=== PATIENT | male | born 1950 | race Caucasian/White ===

== ENCOUNTER → 2016-10-24 | Outpatient (CLI) | payer OTHER ==
[~2016-10-24] MED LIST: ALLO300T2 PO; APIX5TAB PO; ATOR10TA15 PO; ATOR40TA16 PO; CARD120T4 PO; CARV25TA PO; CO Q100C9 PO; ENAL20TA PO; FINA5TAB2 PO; FISH1000 PO; FISHCAP4 PO; HYDR-4107 PO; HYDR500C PO; LACTCAP8 PO; MAGN1TAB14 PO; METF500T PO; METR-1 PO; NITR1SUB3 SL; REST15CA PO; SODI650T PO; TRAM50TA PO; UROCTAB2 PO; VENTAER INH; VITA1000 PO; WELC625T2 PO; XARE20TA PO
[2016-10-24 10:44] LABS: HEMATOCRIT 30.4 % (39.0-51.0); MEAN CELL VOLUME 86.7 FL (80.0-100.0); MEAN CORPUSCULAR HEMOGLOBIN 27.9 PG (27.0-34.0); MEAN CORPUSCULAR HGB CONC 32.2 % (32.0-36.0); PLATELET COUNT 146 TH/MM3 (150-450); RED BLOOD COUNT 3.51 MIL/MM3 (4.50-5.90); RED CELL DISTRIBUTION WIDTH 20.4 % (11.6-17.2); WHITE BLOOD COUNT 46.4 TH/MM3 (4.0-11.0)
[2016-10-24 10:48] LABS: REVIEW FLAG FINAL
[2016-10-24 12:51] LABS: BLOOD, URINE TRACE (NEG); GLUCOSE,URINE NEG (NEG); KETONE, URINE NEG (NEG); MUCUS URINE FEW /lpf (OCC); NITRITE,URINE NEG (NEG); URINE COLOR YELLOW (YELLW/STRAW)
[2016-10-24 13:03] LABS: ALKALINE PHOSPHATASE 139 U/L (45-117); ALT (GPT) 42 U/L (12-78); ANION GAP 9 MEQ/L (5-15); AST (GOT) 26 U/L (15-37); BICARBONATE 26.5 MEQ/L (21.0-32.0); BLOOD UREA NITROGEN 22 MG/DL (7-18); CHLORIDE 105 MEQ/L (98-107); GLOMERULAR FILTRATION RATE 42 ML/MIN (>89); HDL CHOLESTEROL 25.4 MG/DL (40.0-60.0); LDL CHOLESTEROL 17 MG/DL (0-99); LDL CHOLESTEROL DIRECT 40 MG/DL (0-99); POTASSIUM 4.8 MEQ/L (3.5-5.1); SODIUM (NA) 140 MEQ/L (136-145); TOTAL BILIRUBIN ADULT 0.6 MG/DL (0.2-1.0)
[2016-10-24 13:17] LABS: HEMOGLOBIN A1a 1.4 %; HEMOGLOBIN Ao 81.4 %; HEMOGLOBIN LA1C 2.9 %
== END ==
LOC: OLAB 10:25
PROVIDERS: ATTEND Family Medicine
DX: E89.89 Other postprocedural endocrine and metabolic complications and disorders (principal); E78.4 Other hyperlipidemia; I10 Essential (primary) hypertension; E13.9 Other specified diabetes mellitus without complications; E55.9 Vitamin D deficiency, unspecified; N17.9 Acute kidney failure, unspecified; E78.1 Pure hyperglyceridemia; I48.91 Unspecified atrial fibrillation; E78.00 Pure hypercholesterolemia, unspecified; Z79.899 Other long term (current) drug therapy
CPT/HCPCS: 36415; 80053; 80061; 81001; 82306; 83036; 83721; 84100; 85027

== ENCOUNTER → 2016-11-30 | Outpatient (CLI) | payer OTHER ==
[2016-11-30 12:29] LABS: BLOOD, URINE SMALL (NEG); COMMENT (UR) CULT NOT INDICATED; CULTURE IF INDICATED CULT NOT INDICATED; GLUCOSE,URINE NEG (NEG); HYALINE CAST, URINE 1 /lpf (RARE); KETONE, URINE NEG (NEG); MUCUS URINE FEW /lpf (OCC); NITRITE,URINE NEG (NEG); PH, URINE 7.5 (5.0-8.5); URINE COLOR YELLOW (YELLW/STRAW)
[2016-11-30 12:45] LABS: BICARBONATE 24.4 MEQ/L (21.0-32.0); POTASSIUM 4.6 MEQ/L (3.5-5.1)
== END ==
LOC: CLAB 11:49
PROVIDERS: ATTEND Family Medicine
DX: E55.9 Vitamin D deficiency, unspecified (principal); N17.9 Acute kidney failure, unspecified; I10 Essential (primary) hypertension; E11.29 Type 2 diabetes mellitus with other diabetic kidney complication; Z12.5 Encounter for screening for malignant neoplasm of prostate
CPT/HCPCS: 36415; 80069; 81001; 82306; 82570; 84153; 84156

== ENCOUNTER 2017-01-09 06:57 | Day surgery (SDC) | payer OTHER ==
[~2017-01-09] VITALS: Ht 177.8 cm; Wt 117.3 kg
[~2017-01-09 06:57] MED LIST changes: -ATOR10TA15 PO; -FISHCAP4 PO; -HYDR500C PO; -METR-1 PO; -SODI650T PO; -XARE20TA PO
[2017-01-09 07:32] VITALS: BP 182/92; PULSE 65; RESP 17; TEMP 98.5; O2SAT 95
[2017-01-09] MEDS ORDERED: SODI650T PO (07:42)
[2017-01-09] MEDS ORDERED: HYDR500C PO (07:42)
[2017-01-09] MEDS ORDERED: UROCTAB2 PO (07:42)
[2017-01-09] MEDS ORDERED: LACTCAP8 PO (07:42)
[2017-01-09] MEDS ORDERED: CHLORHEXIDINE GLUCONATE 2 % 1 PACK (2 CLOTHS) TOPICAL SCH (08:00)
[2017-01-09] MEDS ORDERED: VANCOMYCIN 1000 MG/NS 250 ML - implanted port/tunneled catheter IV SCH ×2 (08:00)
[2017-01-09] MEDS ORDERED: POVIDONE IODINE 5% (ANTISEPSIS KIT) 4 APPLICATIONS EACH NARE SCH (08:00)
[2017-01-09] MEDS ORDERED: ceFAZolin 2 GM PREMIX 50 ML - implanted port/tunneled catheter insertion IV SCH (08:00)
[2017-01-09] MEDS ORDERED: MIDAZOLAM HCL 5 MG/5 ML VIAL ONE (08:36)
[2017-01-09] MEDS ORDERED: fentaNYL CITRATE 250 MCG/5 ML AMP ONE (08:36)
[2017-01-09] MEDS ORDERED: LIDOCAINE 1%/EPINEPHrine 1:100,000 SOLN 30 ML VIAL ONE (08:42)
[2017-01-09 10:17] VITALS: BP 130/71; PULSE 66; RESP 17; TEMP 98.3; O2SAT 93
--- NOTE | 2017-01-09 10:19 | PD.RAD ---
Post Procedure Progress Note Pre Procedure Diagnosis: (1) Leukemia Post Procedure Diagnosis: (1) Leukemia Procedure Date: Jan 09, 2017 Supervising Radiologist: Francisco Javier Marte JR Proceduralist/Assist: Joselin Conn, RT(R)(), Mine Beltre RT(R) Anesthesia: Conscious Sedation Plan of Activity Patient to Unit: ROPU Patient Condition: Good See PACS Report for procedural detail/treatment Central Venous Access Device Procedure 1 Left Internal Jugular Infusaport Placement single lumen [place]: 8 Findings: Port in good position. Functions well. OK to use Plan F/U with IR or a physician in 10-14 days for a site check Jr. Estuardo,Francisco Javier Moncada MD Jan 09, 2017 10:19
[2017-01-09] MEDS ORDERED: SODIUM CHLORIDE 0.9% FLUSH 10 ML FLUSH IVF PRN (10:30)
[2017-01-09 10:32] VITALS: BP 142/69; PULSE 58; RESP 18; O2SAT 93
[2017-01-09 11:02] VITALS: BP 137/72; PULSE 62; RESP 17; O2SAT 98
[2017-01-09 11:32] VITALS: BP 129/78; PULSE 72; RESP 18; O2SAT 97
--- NOTE | 2017-01-09 11:59 | RADRPT ---
EXAM DATE/TIME: 01/09/2017 08:49 [place] COMPARISON: No previous studies available for comparison. INDICATIONS : Patient with history of chronic myelomonocytic leukemia in need of [id number] placement. Patient re quested a left-sided port. MEDICAL HISTORY : Anemia, A-Fib, Chronic renal failure, CAD, HTN, Kidney stones, CPAP, Splenomegaly, GERD SURGICAL HISTORY : Ablation 2008, Bilateral ureteral stent placement, Bone marrow biopsy and aspiration, Coronary stent, Multiple cystoscopies, Upper endoscopy ENCOUNTER: Initial ACUITY: 7-11 months PAIN SCORE: 0/10 FLUORO TIME: 2.7 minutes IMAGE SERIES: 1 SEDATION TIME: 30 minutes ACCESS: Left internal jugular vein SEDATION: 1.) 5 mg midazolam (Versed) IV 2.) 250 mcg fentanyl (Sublimaze) IV Prophylactic antibiotics were administered with appropriate pre-procedure timing. Vancomycin within 2 hours of procedure, Ancef (or alternative) within 1 hour of procedure. DEVICE: 1. 8 [place] single lumen Bard Power Port PROCEDURE : 1. Continuous pulse oximetry and EKG monitoring. 2. Intravenous conscious sedation. 3. Ultrasound guidance for venous access. 4. Fluoroscopic guided implantable central venous port placement. The patient was placed supine. The neck was prepped in sterile fashion. Full sterile technique was u sed, including cap, mask, sterile gloves and gown, and a large sterile sheet. Hand hygiene and 2% ch lorhexidine Betadine was utilized per protocol for cutaneous antisepsis with appropriate dry time for site. The skin and subcutaneous tissues were infiltrated with local anesthetic solution. Under direct ultrasound guidance, central venous access was accomplished in the targeted vessel. The ultrasound images depicting access guidance were stored and saved to PACS for permanent record. A s ubcutaneous pocket was created using blunt dissection. The port was introduced to the pocket. The c atheter tubing was fed through a subcutaneous tunnel to the venotomy site. The catheter tubing was c ut to a suitable length and then was introduced through a valved Peel-Away sheath and positioned with catheter tubing tip at the cavo-atrial junction level. The pocket incision was closed with subcutic ular Vicryl suture. Steri-Strips were applied. The port was flushed and locked with heparin solutio n per protocol. Sterile dressing was applied to the site. The patient tolerated the procedure well. Conscious sedation was performed with the prescribed dosages and duration as above in the presence of an independent trained radiology nurse to assist in the monitoring of the patient. EKG and oximetry remained stable throughout the procedure. The patient tolerated the procedure well and there were no complications. The patient was sent to post anesthesia recovery in stable condition. CONCLUSION: Uncomplicated ultrasound and fluoroscopic guided implanted central venous port catheter placement as described in detail above. An 8 [place] Power port was placed. Francisco Javier Marte Jr., MD on January 09, 2017 at 11:56 Board Certified Radiologist. This report was verified electronically.
[2017-03-09] MEDS ORDERED: ATOR40TA16 PO (15:22)
[2017-03-09] MEDS ORDERED: FISHCAP4 PO (15:23)
== END 2017-01-09 11:40 | disposition home or self-care (01) ==
LOC: HROP 06:57 → HRIP 07:03 → HROP 11:40
PROVIDERS: ATTEND Internal Medicine Hematology & Oncology
DX: Z45.2 Encounter for adjustment and management of vascular access device (principal); C93.10 Chronic myelomonocytic leukemia not having achieved remission; I12.9 Hypertensive chronic kidney disease with stage 1 through stage 4 chronic kidney disease, or unspecified chronic kidney disease; N18.9 Chronic kidney disease, unspecified; I25.10 Atherosclerotic heart disease of native coronary artery without angina pectoris; I48.91 Unspecified atrial fibrillation; K21.9 Gastro-esophageal reflux disease without esophagitis; Z87.442 Personal history of urinary calculi
CPT/HCPCS: 36561; 76937; 77001; 99152; 99153; C1769; C1788; C1887; C1894; J0690; J1642; J2250; J3010; J3370; J7050

== ENCOUNTER 2017-01-26 14:18 | Observation (INO) | payer OTHER ==
[~2017-01-26] VITALS: Ht 177.8 cm; Wt 122.0 kg
[~2017-01-26 14:18] MED LIST changes: -ENAL20TA PO; -FISH1000 PO; -METF500T PO; +SODI650T PO
[2017-01-26 14:47] VITALS: BP 168/74; PULSE 65; RESP 18; TEMP 97.9; O2SAT 100
--- NOTE | 2017-01-26 15:07 | PD ---
HPI Chief Complaint: Allergic/Adverse Reaction Time Seen by Provider: 14:40 Travel History International Travel<30 days: No Contact w/Intl Traveler<30days: No Traveled to known affect area: No History of Present Illness HPI Patient comes in from outpatient facility in [facility] where he is receiving platelet transfusion secondary to thrombocytopenia. Patient reports after receiving less than 200 cc he began having generalized pruritus and sensation of his throat closing. Patient was given epi, Benadryl, and Solu-Medrol, which improved his symptoms. Patient denies any symptoms currently. Denies any chest pain, shortness of breath, sensation throat closing, or pruritus. PFSH Past Medical History Cancer: Yes (skin ) Cardiovascular Problems: Yes High Cholesterol: Yes Chest Pain: Yes (2005) Diabetes: Yes Patient Takes Glucophage: No Diminished Hearing: No Endocrine: No GERD: Yes Genitourinary: No Hepatitis: Yes Hiatal Hernia: No Hypertension: Yes Immune Disorder: No Kidney Stones: Yes ( calicum stones) Musculoskeletal: Yes Neurologic: No Psychiatric: No Reproductive: No Respiratory: No Sleep Apnea: Yes Thyroid Disease: No Past Surgical History Abdominal Surgery: No AICD: No Cardiac Surgery: Yes (ablation) Ear Surgery: No Eye Surgery: No Genitourinary Surgery: Yes (stent) Gynecologic Surgery: No Joint Replacement: Yes (left hip-1998,right hip-09/2008) Neurologic Surgery: Yes (CERVICAL DISK 2002) Oral Surgery: No Pacemaker: No Thoracic Surgery: No Other Surgery: Yes (arthoscopic both knees 2006) Social History Alcohol Use: Yes (rarely) Tobacco Use: No Substance Use: No Allergies-Medications (Allergen,Severity, Reaction): Coded Allergies: CRESTOR (Verified Allergy, Severe, 01/26/17) Reported Meds & Prescriptions Reported Meds & Active Scripts Active Finasteride 5 Mg Tab 5 Mg PO DAILY Do not crush. Reported Probiotic (Lactobacillus Acidophilus) 1 Cap Cap 1 Cap PO TIDAC Sodium Bicarbonate 650 Mg Tab 650 Mg PO BIDPC 1/2 tab twice daily Urocit-K 10 (Potassium Citrate (Alkalinizer)) 1,080 Mg Tab 10 Meq PO TID Allopurinol 300 Mg Tab 300 Mg PO DAILY Eliquis (Apixaban) 5 Mg Tab 2.5 Mg PO BID Atorvastatin (Atorvastatin Calcium) 40 Mg Tab 60 Mg PO HS Ventolin Hfa 18 GM Inh (Albuterol Sulfate) 90 Mcg/Act Aer 1 Puff INH Q4H PRN Nitroglycerin SL (Nitroglycerin) 0.4 Mg Subl 0.4 Mg SL DIRECTED PRN ONE TABLET UNDER THE TONGUE NEEDED FOR CHEST PAIN, MAY REPEAT EVERY FIVE MINUTES FOR A TOTAL OF 3 DOSES OR CALL 911 IF NO RELIEF Welchol (Colesevelam HCl) 625 Mg Tab 625 Mg PO BID Tramadol (Tramadol HCl) 50 Mg Tab 50 Mg PO Q4H PRN Hydrocodone-Acetaminophen 5-300 Mg Tab 1 Tab PO Q4H PRN Vitamin D-1000 (Cholecalciferol) 1,000 Unit Tab 2,000 Units PO BID Restoril (Temazepam) 15 Mg Cap 15 Mg PO HS PRN Co Q 10 (Coenzyme Q10 (Ubidecarenone)) 100 Mg Cap 1 Cap PO BID Magnesium 400 Mg Tab 250 Mg PO DAILY Cardizem (Diltiazem HCl) 120 Mg Tab 240 Mg PO HS Carvedilol 25 Mg Tab 25 Mg PO BID Review of Systems Except as stated in HPI: all other systems reviewed are Neg Physical Exam Narrative GENERAL: Well-developed, overly nourished, in no acute distress, and non-ill appearing. SKIN: Focused skin assessment warm and dry. HEAD: Atraumatic. Normocephalic. EYES: Pupils equal and round. EOMI. No scleral icterus. No injection or drainage. ENT: No nasal bleeding or discharge. Mucous membranes pink and moist. NECK: Trachea midline. Supple. No nuclear rigidity. CARDIOVASCULAR: Regular rate and rhythm. No murmur appreciated. RESPIRATORY: No accessory muscle use. No respiratory distress. Clear to auscultation. Breath sounds equal bilaterally. No stridor. Speaking. Speaking in full sentences without difficulty. MUSCULOSKELETAL: No obvious deformities. No clubbing. No cyanosis. No edema. Full range of motion. NEUROLOGICAL: Awake and alert. No obvious cranial nerve deficits. Motor grossly within normal limits. Normal speech. PSYCHIATRIC: Appropriate mood and affect; insight and judgment normal. Data Data Last Documented VS Vital Signs Date Time Temp Pulse Resp B/P Pulse Ox O2 Delivery O2 Flow Rate FiO2 01/26/17 14:54 67 18 98 Nasal Cannula 2 01/26/17 14:47 97.9 168/74 Orders Platelet Pheresis (01/26/17 17:27) Blood Product Administration .UPON TRANSFUSION (01/26/17 17:27) Sodium Chlor 0.9% 250 Ml Inj (Ns 250 Ml (01/26/17 17:30) Consult Hematology (01/26/17 ) Admit Order (Ed Use Only) (01/26/17 18:03) MDM Medical Decision Making Medical Screen Exam Complete: Yes Emergency Medical Condition: Yes Differential Diagnosis Allergic reaction, anaphylaxis, thrombocytopenia, leukemia, other Narrative Course Patient was seen and examined. Patient was monitored in the ER with no adverse reactions. Secondary patient now being transfused platelets patient will be placed in observation. Discussed all findings and plan of care with patient and his . All questions were answered. Patient was agreeable to admission. Discussed patient with Dr. Noland, who is in agreement with plan of care and disposition. Physician Communication Physician Communication [id number] Mesa, patient's oncologist, who recommends keeping it as a patient here in the emergency department for a few hours since the patient remained stable feels the patient is safe to discharge for outpatient follow-up. 1720 Dr. Mesa stopped by the emergency department to see the patient and is now wanting patient to go ahead and get platelets transfused. [address] Urban, who is agreeable to admit the patient. Diagnosis Primary Impression: Allergic reaction Qualified Code: T78.40XA - Allergic reaction, initial encounter Additional Impression: Thrombocytopenia Admitting Information Admitting Physician Requests: Observation Condition: Stable John Conn Jan 26, 2017 15:07
--- NOTE | 2017-01-26 16:47 | PD ---
Data Data Last Documented VS Vital Signs Date Time Temp Pulse Resp B/P Pulse Ox O2 Delivery O2 Flow Rate FiO2 01/26/17 14:54 67 18 98 Nasal Cannula 2 01/26/17 14:47 97.9 168/74 Orders Diet Diabetic (01/26/17 Dinner) MDM Supervised Visit with TRAVON: Yes Narrative Course The history, exam, and medical decision-making in the associated midlevel provider note were completed with my assistance. I reviewed and agree with the findings presented. I attest that I had a [id number] encounter with the patient on the same day, and personally performed and documented my assessment and findings in the medical record. *My assessment and Findings: This is a 66-year-old male who presents to the emergency department having had an allergic reaction during platelet transfusion. He received epinephrine, salumedrol and Benadryl. He feels much better here in the emergency department. Patient will be observed for 4 hours following epinephrine. He will be discharged on prednisone and Benadryl. Shruthi Noland MD Jan 26, 2017 16:47
[2017-01-26] MEDS ORDERED: SODIUM CHLOR 0.9% 250 ML INJ 250 ML IV ONE (17:30)
[2017-01-26] MEDS ORDERED: ONDANSETRON HCL 4 MG/2 ML VIAL IV PUSH PRN (18:15)
[2017-01-26] MEDS ORDERED: traMADol HCL 50 MG TAB PO PRN (18:15)
[2017-01-26] MEDS ORDERED: ALBUTEROL SULFATE 90 MCG/ACT HFA 8 GM INHALER INH PRN (18:15)
[2017-01-26] MEDS ORDERED: TEMAZEPAM 15 MG CAP PO PRN (18:15)
--- NOTE | 2017-01-26 18:26 | HHI.HP ---
[facility] Grupo Mckeon MD Admission Diagnosis thrombocytopenia, leukemia Diagnoses: (1) Thrombocytopenia Diagnosis: Principal (2) Allergic reaction Diagnosis: Principal Chief Complaint: ' I had an allergic reaction to transfusion'. Travel History International Travel<30 Days: No Contact w/Intl Traveler <30 Da: No Traveled to Known Affected Are: No History of Present Illness patient is a 66 y/o male with history of CML who had platelet transfusion earlier and developed an allergic reaction with rash and some sob. he says that he had mild itching when he had transfusion few days ago but today it was more severe and had some sob.he received epinephrine, benadryl and solumedrol. he says that all the symptoms have already resolved. he denies any itching, wheezing or sob. he was seen by and is supposed to receive platelet transfusion tonight. Review of Systems Constitutional: DENIES: Fever, Weight loss, Chills, Night Sweats Eyes: DENIES: Blurred vision, Diplopia, Vision loss, Double Vision Ears, nose, mouth, throat: DENIES: Tinnitus, Vertigo, Throat pain, Epistaxis Respiratory: COMPLAINS OF: Shortness of breath, DENIES: Apneas, Cough, Snoring , Wheezing, Hemoptysis, Sputum production Cardiovascular: DENIES: Chest pain, Palpitations, Syncope, Dyspnea on Exertion , PND, Lower Extremity Edema, Orthopnea, Claudication Gastrointestinal: DENIES: Abdominal pain, Black stools, Bloody stools, Constipation, Diarrhea, Nausea, Vomiting, Difficulty Swallowing, Anorexia Genitourinary: DENIES: Urinary frequency, Urgency, Hematuria, Dysuria Musculoskeletal: DENIES: Joint pain, Muscle aches, Stiffness, Joint Swelling Integumentary: COMPLAINS OF: Pruritus, Rash Neurologic: DENIES: Abnormal gait, Headache, Localized weakness, Paresthesias, Seizures, Speech Problems, Tremor, Poor Balance Psychiatric: DENIES: Anxiety, Confusion, Mood changes, Depression, Hallucinations, Agitation, Suicidal Ideation, Homicidal Ideation, Delusions Past Family Social History Past Medical History CML a-fib hypertension diabetes mellitus Past Surgical History hip surgery cervical fusion ureteral stent placement Reported Medications Probiotic (Lactobacillus Acidophilus) 1 Cap Cap 1 Cap PO TIDAC Sodium Bicarbonate 650 Mg Tab 650 Mg PO BIDPC 1/2 tab twice daily Urocit-K 10 (Potassium Citrate (Alkalinizer)) 1,080 Mg Tab 10 Meq PO TID Allopurinol 300 Mg Tab 300 Mg PO DAILY Eliquis (Apixaban) 5 Mg Tab 2.5 Mg PO BID Atorvastatin (Atorvastatin Calcium) 40 Mg Tab 60 Mg PO HS Ventolin Hfa 18 GM Inh (Albuterol Sulfate) 90 Mcg/Act Aer 1 Puff INH Q4H PRN Nitroglycerin SL (Nitroglycerin) 0.4 Mg Subl 0.4 Mg SL DIRECTED PRN ONE TABLET UNDER THE TONGUE NEEDED FOR CHEST PAIN, MAY REPEAT EVERY FIVE MINUTES FOR A TOTAL OF 3 DOSES OR CALL 911 IF NO RELIEF Welchol (Colesevelam HCl) 625 Mg Tab 625 Mg PO BID Tramadol (Tramadol HCl) 50 Mg Tab 50 Mg PO Q4H PRN Hydrocodone-Acetaminophen 5-300 Mg Tab 1 Tab PO Q4H PRN Vitamin D-1000 (Cholecalciferol) 1,000 Unit Tab 2,000 Units PO BID Restoril (Temazepam) 15 Mg Cap 15 Mg PO HS PRN Co Q 10 (Coenzyme Q10 (Ubidecarenone)) 100 Mg Cap 1 Cap PO BID Magnesium 400 Mg Tab 250 Mg PO DAILY Cardizem (Diltiazem HCl) 120 Mg Tab 240 Mg PO HS Carvedilol 25 Mg Tab 25 Mg PO BID Allergies: Coded Allergies: CRESTOR (Verified Allergy, Severe, 01/26/17) Active Ordered Medications Current Medications Sodium Chloride (NS 250 ml Inj) 250 ml @ 15 mls/hr ONCE ONCE IV ; Start at 17:30; Stop 01/27/17 at 10:09 Ondansetron HCl (Zofran Inj) 4 mg Q8H PRN IV PUSH NAUSEA; Start 01/26/17 at 18: 15 Albuterol Sulfate (Proair Hfa Inh) 1 puff Q4H PRN INH SHORTNESS OF BREATH; Start 01/26/17 at 18:15 Allopurinol (Zyloprim) 300 mg DAILY PO ; Start 01/27/17 at 09:00 Atorvastatin Calcium (Lipitor) 60 mg HS PO ; Start 01/26/17 at 21:00 Carvedilol (Coreg) 25 mg BID PO ; Start 01/26/17 at 21:00 Colesevelam HCl (Welchol) 625 mg BID@10,22 PO ; Start 01/26/17 at 22:00 Lactobacillus Acidophilus (Lactinex) 1 tab TIDAC PO ; Start 01/27/17 at 08:00 Sodium Bicarbonate (Sodium Bicarbonate) 650 mg BIDPC PO ; Start 01/27/17 at 09: 00 Temazepam (Restoril) 15 mg HS PRN PO INSOMNIA; Start 01/26/17 at 18:15 Tramadol HCl (Ultram) 50 mg Q4H PRN PO PAIN SCALE 1 TO 10; Start 01/26/17 at 18 :15 Non-Formulary Medication 240 mg HS PO ; Start 01/26/17 at 21:00; Status UNV Non-Formulary Medication 250 mg DAILY PO NS; Start 01/27/17 at 09:00; Status UNV Non-Formulary Medication 10 meq TID PO ; Start 01/27/17 at 09:00; Status UNV Social History no smoking or drinking. Physical Exam Vital Signs Vital Signs Date Time Temp Pulse Resp B/P Pulse Ox O2 Delivery O2 Flow Rate FiO2 01/26/17 14:54 67 18 98 Nasal Cannula 2 01/26/17 14:47 97.9 65 18 168/74 100 Physical Exam GENERAL: This is a well-nourished, well-developed patient, in no apparent distress. SKIN: No rashes, ecchymoses or lesions. Cool and dry. HEAD: Atraumatic. Normocephalic. No temporal or scalp tenderness. EYES: Pupils equal round and reactive. Extraocular motions intact. No scleral icterus. No injection or drainage. ENT: Nose without bleeding, purulent drainage or septal hematoma. Throat without erythema, tonsillar hypertrophy or exudate. Uvula midline. Airway patent. NECK: Trachea midline. No JVD or lymphadenopathy. Supple, nontender, no meningeal signs. CARDIOVASCULAR: Regular rate and rhythm without murmurs, gallops, or rubs. RESPIRATORY: Clear to auscultation. Breath sounds equal bilaterally. No wheezes , rales, or rhonchi. GASTROINTESTINAL: Abdomen soft, non-tender, nondistended. No hepato-splenomegaly , or palpable masses. No guarding. MUSCULOSKELETAL: Extremities without clubbing, cyanosis, or edema. No joint tenderness, effusion, or edema noted. No calf tenderness. Negative Homans sign bilaterally. NEUROLOGICAL: Awake and alert. Cranial nerves II through XII intact. Motor and sensory grossly within normal limits. Five out of 5 muscle strength in all muscle groups. Normal speech. Assessment and Plan Assessment and Plan A/P - allergic reaction to platelet transfusion- now has resolved -CML with thrombocytopenia- will receive platelet transfusion per Oncology- will monitor -atrial fibrillation; continue coreg and cardizem- eliquis on hold -hypertension; continue home meds- will monitor -dyslipidemia; resume statin Discussed Condition With ER and the patient. Problem Qualifiers (1) Allergic reaction: Qualified Code: T78.40XA - Allergic reaction, initial encounter Craig Urban MD Jan 26, 2017 18:26
[2017-01-26] MEDS ORDERED: ACETAMINOPHEN 325 MG TAB PO PRN ×2 (18:30→21:45)
[2017-01-26] MEDS ORDERED: NON-FORMULARY DRUG (Hydrocodone-Acetaminophen 1 TAB) PO PRN (18:30)
[2017-01-26] MEDS ORDERED: ACETAMINOPHEN/HYDROcodone 325 MG/5 MG TAB PO PRN (18:45)
[2017-01-26 20:22] VITALS: BP 148/65; PULSE 74; RESP 16; O2SAT 99
[2017-01-26] MEDS ORDERED: DILTIAZEM-CD 240 MG CAP ER PO SCH (21:00)
[2017-01-26] MEDS ORDERED: ATORVASTATIN 20 MG TAB PO SCH (21:00)
[2017-01-26 21:30] VITALS: BP 167/77; PULSE 81; RESP 18; TEMP 97.9; O2SAT 100
[2017-01-26 21:45] VITALS: BP 166/72; PULSE 82; RESP 20; TEMP 98.6; O2SAT 99
[2017-01-26] MEDS ORDERED: diphenhydrAMINE HCL 25 MG CAP PO PRN (21:45)
[2017-01-26] MEDS ORDERED: COLESEVELAM HCL 625 MG TAB PO SCH (22:00)
[2017-01-26 22:01] VITALS: PULSE 82; RESP 20; TEMP 98.6; O2SAT 99
[2017-01-26 22:15] VITALS: BP 137/63; PULSE 82; RESP 20; TEMP 97.3; O2SAT 97
[2017-01-26] MEDS: CARVEDILOL 12.5 MG TAB PO SCH (22:57)
[2017-01-27 05:44] VITALS: BP 146/66; PULSE 80; RESP 18; TEMP 96.1; O2SAT 98
[2017-01-27 06:41] LABS: AUTOMATED NEUTROPHIL # 1.1 TH/MM3 (1.8-7.7); BASOPHIL % 0.4 % (0.0-2.0); EOSINOPHIL % 0.3 % (0.0-4.0); HEMATOCRIT 25.8 % (39.0-51.0); LYMPH % 28.2 % (9.0-44.0); LYMPHOCYTE # 0.5 TH/MM3 (1.0-4.8); MEAN CELL VOLUME 93.5 FL (80.0-100.0); MEAN CORPUSCULAR HEMOGLOBIN 31.5 PG (27.0-34.0); MEAN CORPUSCULAR HGB CONC 33.7 % (32.0-36.0); MONO % 5.5 % (0.0-8.0); NEUT % 65.6 % (16.0-70.0); PLATELET COUNT 25 TH/MM3 (150-450); RED BLOOD COUNT 2.76 MIL/MM3 (4.50-5.90); RED CELL DISTRIBUTION WIDTH 18.8 % (11.6-17.2); WHITE BLOOD COUNT 1.7 TH/MM3 (4.0-11.0)
[2017-01-27 06:48] LABS: HEMO FLAGS AUTO DIFF
[2017-01-27] MEDS ORDERED: LACTOBACILLUS ACIDOPHILUS TAB PO SCH (08:00)
--- NOTE | 2017-01-27 08:27 | HHI.PR ---
Subjective Remarks had platelet transfusion last night. he feels fine today with no new complaints. Objective Vitals Vital Signs Date Time Temp Pulse Resp B/P Pulse Ox O2 Delivery O2 Flow Rate FiO2 01/27/17 05:44 96.1 80 18 146/66 98 01/26/17 23:00 19 01/26/17 22:15 97.3 82 20 137/63 97 01/26/17 21:45 98.6 82 20 166/72 99 01/26/17 21:30 97.9 81 18 167/77 100 01/26/17 20:22 74 16 148/65 99 Room Air 01/26/17 14:54 67 18 98 Nasal Cannula 2 01/26/17 14:47 97.9 65 18 168/74 100 Result Diagram: 01/27/17 0544 Objective Remarks GENERAL: This is a well-nourished, well-developed patient, in no apparent distress. CARDIOVASCULAR: Regular rate and regular rhythm without murmurs, gallops, or rubs. RESPIRATORY: Clear to auscultation. Breath sounds equal bilaterally. No wheezes , rales, or rhonchi. GASTROINTESTINAL: Abdomen soft, non-tender, nondistended. Normal, active bowel sounds MUSCULOSKELETAL: Extremities without clubbing, cyanosis, or edema. NEURO: Alert & Oriented x4 to person, place, time, situation. Moves all ext x4 Procedures none Medications and IVs Current Medications Sodium Chloride (NS 250 ml Inj) 250 ml @ 15 mls/hr ONCE ONCE IV Last administered on 01/26/17 22:00; Start 01/26/17 at 17:30; Stop 01/27/17 at 10:09 Ondansetron HCl (Zofran Inj) 4 mg Q8H PRN IV PUSH NAUSEA; Start 01/26/17 at 18: 15 Albuterol Sulfate (Proair Hfa Inh) 1 puff Q4H PRN INH SHORTNESS OF BREATH; Start 01/26/17 at 18:15 Allopurinol (Zyloprim) 300 mg DAILY PO ; Start 01/27/17 at 09:00 Atorvastatin Calcium (Lipitor) 60 mg HS PO Last administered on 01/26/17 22:58 ; Start 01/26/17 at 21:00 Carvedilol (Coreg) 25 mg BID PO Last administered on 01/26/17 22:57; Start at 21:00 Colesevelam HCl (Welchol) 625 mg BID@,22 PO Last administered on 01/27/17 00 :01; Start 01/26/17 at 22:00 Lactobacillus Acidophilus (Lactinex) 1 tab TIDAC PO ; Start 01/27/17 at 08:00 Sodium Bicarbonate (Sodium Bicarbonate) 650 mg BIDPC PO ; Start 01/27/17 at 09: 00 Temazepam (Restoril) 15 mg HS PRN PO INSOMNIA; Start 01/26/17 at 18:15 Tramadol HCl (Ultram) 50 mg Q4H PRN PO PAIN SCALE 1 TO 10; Start 01/26/17 at 18 :15; Stop 01/26/17 at 18:33; Status DC Diltiazem HCl (Cardizem Cd) 240 mg HS PO Last administered on 01/26/17 22:57; Start 01/26/17 at 21:00 Non-Formulary Medication 250 mg DAILY PO NS; Start 01/27/17 at 09:00; Stop 01/27 at 09:00; Status DC Patient Own Medication PT OWN MED: Potassium Citr... TID PO ; Start 01/27/17 at 09:00; Status Future Hold Finasteride (Proscar) 5 mg DAILY PO ; Start 01/27/17 at 09:00 Non-Formulary Medication 1 tab Q4H PRN PO ; Start 01/26/17 at 18:30; Status UNV Acetaminophen (Tylenol) 650 mg Q4H PRN PO FEVER/ PAIN < 5; Start 01/26/17 at 18 :30 Acetaminophen/ Hydrocodone Bitart (Carbon 5-325 Mg) 1 tab Q4H PRN PO PAIN SCALE 5 TO 10; Start 01/26/17 at 18:45 Acetaminophen (Tylenol) 650 mg UNSCH X1 PRN PO 30 MIN PRIOR TO PLATELETS Last administered on 01/26/17 21:47; Start 01/26/17 at 21:45; Stop 01/27/17 at 04:00 ; Status DC Diphenhydramine HCl (Benadryl) 25 mg UNSCH X1 PRN PO 30 MIN PRIOPR TO PLATELETS Last administered on 01/26/17 21:48; Start 01/26/17 at 21:45; Stop 4 /14/17 at 04:00; Status DC A/P Assessment and Plan A/P - allergic reaction to platelet transfusion prior to his presentation to ER- has resolved -CML with thrombocytopenia- received platelet transfusion per Oncology- platelet count has improved. -atrial fibrillation; continue coreg and cardizem- eliquis on hold -hypertension; continue home meds- will monitor -dyslipidemia; resumed statin Discharge Planning dc home today after seen and cleared by oncology. see med list. f/u; pcp and oncology. d/w the patient. Craig Urban MD Jan 27, 2017 08:27
--- NOTE | 2017-01-27 08:29 | HHI.DS ---
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 he says that he had mild itching when he had transfusion few days ago but today it was more severe and had some sob.he received epinephrine, benadryl and solumedrol. he says that all the symptoms have already resolved. he denies any itching, wheezing or sob. he was seen by and is supposed to receive platelet transfusion tonight. CBC/BMP: 01/27/17 0544 Significant Findings Laboratory Tests Test 01/27/17 05:44 White Blood Count 1.7 TH/MM3 (4.0-11.0) Red Blood Count 2.76 MIL/MM3 (4.50-5.90) Hemoglobin 8.7 GM/DL (13.0-17.0) Hematocrit 25.8 % (39.0-51.0) Red Cell Distribution Width 18.8 % (11.6-17.2) Platelet Count 25 TH/MM3 (150-450) Neutrophils # (Auto) 1.1 TH/MM3 (1.8-7.7) Lymphocytes # (Auto) 0.5 TH/MM3 (1.0-4.8) PE at Discharge GENERAL: This is a well-nourished, well-developed patient, in no apparent distress. CARDIOVASCULAR: Regular rate and regular rhythm without murmurs, gallops, or rubs. RESPIRATORY: Clear to auscultation. Breath sounds equal bilaterally. No wheezes , rales, or rhonchi. GASTROINTESTINAL: Abdomen soft, non-tender, nondistended. Normal, active bowel sounds MUSCULOSKELETAL: Extremities without clubbing, cyanosis, or edema. NEURO: Alert & Oriented x4 to person, place, time, situation. Moves all ext x4 Hospital Course - allergic reaction to platelet transfusion prior to his presentation to ER- has resolved -CML with thrombocytopenia- received platelet transfusion per Oncology- platelet count has improved. -atrial fibrillation; continue coreg and cardizem- eliquis on hold -hypertension; continue home meds- will monitor -dyslipidemia; resumed statin Pt Condition on Discharge: Good Discharge Disposition: Discharge Home Discharge Time: <= 30 minutes Discharge Instructions DIET: Follow Instructions for: Heart Healthy Diet Activities you can perform: Regular-No Restrictions Follow up Referrals: Oncology PCP Follow-up Continued Medications: Albuterol 18 GM Inh (Ventolin Hfa 18 GM Inh) 90 Mcg/Act Aer 1 PUFF INH Q4H PRN SHORTNESS OF BREATH #1 Ref 0 INHALER Allopurinol (Allopurinol) 300 Mg Tab 300 MG PO DAILY Gout #30 Ref 0 TAB Atorvastatin (Atorvastatin) 40 Mg Tab 60 MG PO HS Cholesterol Management #30 Ref 0 TAB Carvedilol (Carvedilol) 25 Mg Tab 25 MG PO BID #60 Ref 0 TAB Cholecalciferol (Vitamin D-1000) 1,000 Unit Tab 2000 UNITS PO BID Nutritional Supplement #1 Ref 0 BOTTLE Coenzyme Q10 (Ubidecarenone) (Co Q 10) 100 Mg Cap 1 CAP PO BID Colesevelam (Welchol) 625 Mg Tab 625 MG PO BID Hyperlipidemia,type 2 diabetes #180 Ref 0 TAB Diltiazem (Cardizem) 120 Mg Tab 240 MG PO HS Angina #120 Ref 0 TAB Finasteride (Finasteride) 5 Mg Tab 5 MG PO DAILY Do not crush. bph #30 Ref 11 TAB Hydrocodone-Acetaminophen (Hydrocodone-Acetaminophen) 5-300 Mg Tab 1 TAB PO Q4H PRN PAIN Ref 0 TAB Lactobacillus Acidophilus (Probiotic) 1 Cap Cap 1 CAP PO TIDAC Nutritional Supplement #90 Ref 0 CAP Magnesium (Magnesium) 400 Mg Tab 250 MG PO DAILY Nutritional Supplement Ref 0 TAB Nitroglycerin SL (Nitroglycerin SL) 0.4 Mg Subl 0.4 MG SL DIRECTED ONE TABLET UNDER THE TONGUE NEEDED FOR CHEST PAIN, MAY REPEAT EVERY FIVE MINUTES FOR A TOTAL OF 3 DOSES OR CALL 911 IF NO RELIEF PRN CHEST PAIN #100 Ref 0 TAB.SL Potassium Citrate (Alkalinizer) (Urocit-K 10) 1,080 Mg Tab 10 MEQ PO TID #90 Ref 0 TAB Sodium Bicarbonate (Sodium Bicarbonate) 650 Mg Tab 650 MG PO BIDPC 1/2 tab twice daily #60 Ref 0 TAB Temazepam (Restoril) 15 Mg Cap 15 MG PO HS PRN INSOMNIA #30 Ref 0 CAP Tramadol (Tramadol) 50 Mg Tab 50 MG PO Q4H PRN PAIN Ref 0 TAB Discontinued Medications: Apixaban (Eliquis) 5 Mg Tab 2.5 MG PO BID Blood Clot Prevention #60 Ref 0 TAB Craig Ubran MD Jan 27, 2017 08:29
--- NOTE | 2017-01-27 08:29 | HHI.DCPOC ---
Discharge Care Plan Diagnosis: (1) Thrombocytopenia (2) Allergic reaction Your Health Problems Are: Bleeding Tendency Goals to Promote Your Health * To prevent worsening of your condition and complications * To maintain your health at the optimal level Directions to Meet Your Goals Take your medications as prescribed Follow your dietary instruction Follow activity as directed Keep your appointments as scheduled Take your immunizations and boosters as scheduled If your symptoms worsen call your PCP, if no PCP go to Urgent Care Center or Emergency Room Smoking is Dangerous to Your Health. Avoid second hand smoke Call the 24-hour hour crisis hotline for domestic abuse at Craig Urban MD Jan 27, 2017 08:29
[2017-01-27] MEDS: CARVEDILOL 12.5 MG TAB PO SCH (08:39)
[2017-01-27 08:43] LABS: BANDS 1 % (0-6); POLYS (SEG NEUTROPHILS) 57 % (16-70); WBC DIFF SAMPLE 100
[2017-01-27 08:44] LABS: PLATELET ESTIMATE SMEAR LOW (NORMAL); PLATELET MORPHOLOGY NORMAL (NORMAL); SCAN/DIFF FINAL DIFF MANUAL
[2017-01-27 08:55] VITALS: BP 127/58; PULSE 70; RESP 18; TEMP 96.4; O2SAT 98
[2017-01-27] MEDS ORDERED: ALLOPURINOL 300 MG TAB PO SCH (09:00)
[2017-01-27] MEDS ORDERED: FINASTERIDE 5 MG TAB PO SCH (09:00)
[2017-01-27] MEDS ORDERED: POTASSIUM CITRATE 10 MEQ PO SCH (09:00)
[2017-01-27] MEDS ORDERED: NON-FORMULARY DRUG (Magnesium 250 MG) PO SCH (09:00)
[2017-01-27] MEDS ORDERED: SODIUM BICARBONATE 650 MG TAB PO SCH (09:00)
--- NOTE | 2017-01-27 09:45 | HHI.PR ---
Addendum To [facility] Progress Not Reason for addendum: Additonal documentation (spoke with ; patient is clear for discharge. f/u as outpatient.) Craig Urban MD Jan 27, 2017 09:45
[2017-03-09] MEDS ORDERED: ATOR40TA16 PO (15:22)
[2017-03-09] MEDS ORDERED: FISHCAP4 PO (15:23)
== END 2017-01-27 11:04 | disposition home or self-care (01) ==
LOC: NEPC 14:18 → NEDA 18:04 → HOCA 21:21
PROVIDERS: ADMIT Internal Medicine; ATTEND Internal Medicine
DX: T80.89XA Other complications following infusion, transfusion and therapeutic injection, initial encounter (principal); D69.6 Thrombocytopenia, unspecified; C92.10 Chronic myeloid leukemia, BCR/ABL-positive, not having achieved remission; E78.00 Pure hypercholesterolemia, unspecified; E11.9 Type 2 diabetes mellitus without complications; K21.9 Gastro-esophageal reflux disease without esophagitis; I10 Essential (primary) hypertension; E78.5 Hyperlipidemia, unspecified; I48.91 Unspecified atrial fibrillation; Z88.8 Allergy status to other drugs, medicaments and biological substances; Z96.643 Presence of artificial hip joint, bilateral
CPT/HCPCS: 36430; 85007; 85027; 86999; 99285; G0378; J7050; P9035

== ENCOUNTER 2017-05-29 00:04 | Emergency (ER) | payer MEDICARE ==
[~2017-05-29 00:04] MED LIST changes: -APIX5TAB PO; +ASPI1TAB69 PO; +CARD240C6 PO; +CIPR250T52 PO; +COEN1CAP PO; +DIFL100T PO; +FISHCAP4 PO; +HYDR500C PO; +OXYC1TAB63 PO; +TEMA7.5C9 PO
[2017-05-29 00:06] VITALS: BP 160/77; PULSE 85; RESP 16; TEMP 100.5; O2SAT 97
--- NOTE | 2017-05-29 00:39 | PD ---
HPI Chief Complaint: Fever Time Seen by Provider: 00:29 Travel History International Travel<30 days: No Contact w/Intl Traveler<30days: No Traveled to known affect area: No History of Present Illness HPI 67-year-old male presents emergency department for evaluation of fever. He is history of CML. Patient last chemotherapy was weeks ago. Began feeling feverish and took his temperature called the on-call oncologist Dr. oh who recommended the patient come to the emergent department to be evaluated and likely admitted. Patient denies any cough congestion nausea vomiting rash earaches sore throat or dysuria. Denies any diarrhea or constipation. Patient just been feeling bad today. PFSH Past Medical History Hx Anticoagulant Therapy: Yes (XARELTO) Atrial Fibrillation: Yes Cancer: Yes (skin, CMML) Cardiovascular Problems: Yes High Cholesterol: Yes Chest Pain: Yes (2005) Coronary Artery Disease: Yes Diabetes: Yes Patient Takes Glucophage: No (OFF SINCE AUG) Diminished Hearing: Yes Endocrine: No GERD: Yes Genitourinary: No Hepatitis: Yes Hiatal Hernia: No Hypertension: Yes Immune Disorder: No Implanted Vascular Access Dvce: Yes (POWER PORT LEFT) Kidney Stones: Yes ( calicum stones) Musculoskeletal: Yes Neurologic: No Psychiatric: No Reproductive: No Respiratory: No Sleep Apnea: Yes Thyroid Disease: No Past Surgical History Abdominal Surgery: No AICD: No Cardiac Surgery: Yes (ablation, CATH 2005) Ear Surgery: No Eye Surgery: No Genitourinary Surgery: Yes (stent) Gynecologic Surgery: No Joint Replacement: Yes (left hip-1998,right hip-09/2008) Neurologic Surgery: Yes (CERVICAL DISK 2002) Oral Surgery: No Pacemaker: No Thoracic Surgery: No Other Surgery: Yes (arthoscopic both knees 2006) Social History Alcohol Use: Yes (rarely) Tobacco Use: No Substance Use: No Allergies-Medications (Allergen,Severity, Reaction): Coded Allergies: No Known Allergies (Unverified , 05/29/17) Reported Meds & Prescriptions Reported Meds & Active Scripts Active Keflex (Cephalexin) 500 Mg Cap 500 Mg PO Q6H 5 Days Diflucan (Fluconazole) 100 Mg Tab 100 Mg PO DAILY Sodium Bicarbonate 650 Mg Tab 650 Mg PO BIDPC Aspirin 81 Mg Tabdr 81 Mg PO DAILY Oxycodone-Acetaminophen 5-325 mg Tab 1 Tab PO Q4H PRN Finasteride 5 Mg Tab 5 Mg PO DAILY Do not crush. Reported Fish Oil + D3 (Fish Oil-Cholecalciferol) 1,200-1,000 Mg-Unit Cap 1 Cap PO DAILY Atorvastatin (Atorvastatin Calcium) 40 Mg Tab 40 Mg PO DAILY Probiotic (Lactobacillus Acidophilus) 1 Cap Cap 1 Cap PO TIDAC Sodium Bicarbonate 650 Mg Tab 650 Mg PO BIDPC 1/2 tab twice daily Urocit-K 10 (Potassium Citrate (Alkalinizer)) 1,080 Mg Tab 10 Meq PO TID Allopurinol 300 Mg Tab 300 Mg PO DAILY Hydrea (Hydroxyurea) 500 Mg Cap 500 Mg PO DAILY Finasteride 5 Mg Tab 5 Mg PO DAILY Do not crush. Restoril (Temazepam) 7.5 Mg Cap 7.5 Mg PO HS PRN Co Q-10 (Coenzyme Q10 (Ubidecarenone)) 100 Mg Cap 100 Mg PO BID Cardizem CD 24 HR (Diltiazem CD 24 HR) 240 Mg Caper 240 Mg PO DAILY Atorvastatin (Atorvastatin Calcium) 40 Mg Tab 40 Mg PO HS Ventolin Hfa 18 GM Inh (Albuterol Sulfate) 90 Mcg/Act Aer 1 Puff INH Q4H PRN Nitroglycerin SL (Nitroglycerin) 0.4 Mg Subl 0.4 Mg SL DIRECTED PRN ONE TABLET UNDER THE TONGUE NEEDED FOR CHEST PAIN, MAY REPEAT EVERY FIVE MINUTES FOR A TOTAL OF 3 DOSES OR CALL 911 IF NO RELIEF Welchol (Colesevelam HCl) 625 Mg Tab 625 Mg PO BID Tramadol (Tramadol HCl) 50 Mg Tab 50 Mg PO Q4H PRN Hydrocodone-Acetaminophen 5-300 Mg Tab 1 Tab PO Q4H PRN Vitamin D-1000 (Cholecalciferol) 1,000 Unit Tab 2,000 Units PO BID Restoril (Temazepam) 15 Mg Cap 15 Mg PO HS PRN Magnesium 400 Mg Tab 250 Mg PO DAILY Carvedilol 25 Mg Tab 25 Mg PO BID Review of Systems Except as stated in HPI: all other systems reviewed are Neg Physical Exam Narrative GENERAL: Well-developed well-nourished nontoxic-appearing male in no distress. SKIN: Focused skin assessment warm/dry. No rash no wound. HEAD: Atraumatic. Normocephalic. EYES: Pupils equal and round. No scleral icterus. No injection or drainage. ENT: No nasal bleeding or discharge. Mucous membranes pink and moist. NECK: Trachea midline. No JVD. CARDIOVASCULAR: Regular rate and rhythm. No murmur appreciated. RESPIRATORY: No accessory muscle use. Clear to auscultation. Breath sounds equal bilaterally. GASTROINTESTINAL: Abdomen soft, non-tender, nondistended. Hepatic and splenic margins not palpable. MUSCULOSKELETAL: No obvious deformities. No clubbing. No cyanosis. No edema. NEUROLOGICAL: Awake and alert. No obvious cranial nerve deficits. Motor grossly within normal limits. Normal speech. PSYCHIATRIC: Appropriate mood and affect; insight and judgment normal. Data Data Last Documented VS Vital Signs Date Time Temp Pulse Resp B/P Pulse Ox O2 Delivery O2 Flow Rate FiO2 05/29/17 03:10 72 16 134/60 97 05/29/17 00:06 100.5 Room Air Orders Electrocardiogram (05/29/17 00:37) Complete Blood Count With Diff (05/29/17 00:37) Comprehensive Metabolic Panel (05/29/17 00:37) Prothrombin Time / Inr (Pt) (05/29/17 00:37) Act Partial Throm Time (Ptt) (05/29/17 00:37) Lactic Acid Sepsis Protocol (05/29/17 00:37) Magnesium (Mg) (05/29/17 00:37) Phosphorus (Po4) (05/29/17 00:37) Lipase (05/29/17 00:37) Ckmb (Isoenzyme) Profile (05/29/17 00:37) Troponin I (05/29/17 00:37) Urinalysis - C+S If Indicated (05/29/17 00:37) Influenzae A/B Antigen (05/29/17 00:37) Blood Culture (05/29/17 00:37) Chest, Single Ap (05/29/17 00:37) Ecg Monitoring (05/29/17 00:37) Iv Access Insert/Monitor (05/29/17 00:37) Oximetry (05/29/17 00:37) Oxygen Administration (05/29/17 00:37) Vancomycin Inj (Vancomycin Inj) (05/29/17 00:45) Piperacil-Tazo 4.5 Gm Premix (Zosyn 4.5 (05/29/17 00:45) Labs Laboratory Tests Test 05/29/17 05/29/17 05/29/17 00:40 01:25 01:30 Prothrombin Time 13.8 SEC Prothromb Time International 1.2 RATIO Ratio Activated Partial 33.4 SEC Thromboplast Time Sodium Level 137 MEQ/L Potassium Level 4.0 MEQ/L Chloride Level 100 MEQ/L Carbon Dioxide Level 26.5 MEQ/L Anion Gap 11 MEQ/L Blood Urea Nitrogen 25 MG/DL Creatinine 1.44 MG/DL Estimat Glomerular Filtration 49 ML/MIN Rate Random Glucose 153 MG/DL Lactic Acid Level 0.8 mmol/L Calcium Level 8.5 MG/DL Phosphorus Level 3.7 MG/DL Magnesium Level 2.0 MG/DL Total Bilirubin 1.5 MG/DL Aspartate Amino Transf 24 U/L (AST/SGOT) Alanine Aminotransferase 26 U/L (ALT/SGPT) Alkaline Phosphatase 125 U/L Total Creatine Kinase 75 U/L Troponin I LESS THAN 0.02 NG/ML Total Protein 7.8 GM/DL Albumin 3.7 GM/DL Lipase 256 U/L Urine Color YELLOW Urine Turbidity CLEAR Urine pH 6.5 Urine Specific [place] 1.021 Urine Protein 30 mg/dL Urine Glucose (UA) NEG mg/dL Urine Ketones NEG mg/dL Urine Occult Blood NEG Urine Nitrite NEG Urine Bilirubin NEG Urine Urobilinogen LESS THAN 2.0 MG/DL Urine Leukocyte Esterase NEG Urine RBC LESS THAN 1 /hpf Urine WBC 1 /hpf Urine Mucus FEW /lpf Microscopic Urinalysis Comment CATH-CULT NOT IND White Blood Count 4.4 TH/MM3 Red Blood Count 4.13 MIL/MM3 Hemoglobin 11.3 GM/DL Hematocrit 35.1 % Mean Corpuscular Volume 84.9 FL Mean Corpuscular Hemoglobin 27.5 PG Mean Corpuscular Hemoglobin 32.4 % Concent Red Cell Distribution Width 27.5 % Platelet Count 130 TH/MM3 Mean Platelet Volume 9.9 FL Neutrophils (%) (Auto) % Lymphocytes (%) (Auto) % Monocytes (%) (Auto) % Eosinophils (%) (Auto) % Basophils (%) (Auto) % Neutrophils # (Auto) TH/MM3 Lymphocytes # (Auto) TH/MM3 Monocytes # (Auto) TH/MM3 Eosinophils # (Auto) TH/MM3 Basophils # (Auto) TH/MM3 CBC Comment AUTO DIFF Differential Total Cells 100 Counted Neutrophils % (Manual) 35 % Band Neutrophils % 1 % Lymphocytes % 52 % Monocytes % 7 % Eosinophils % 1 % Basophils % 4 % Neutrophils # (Manual) 1.6 TH/MM3 Nucleated Red Blood Cells 3 /100 WBC Differential Comment FINAL DIFF MANUAL Platelet Estimate LOW Platelet Morphology Comment NORMAL Ovalocytes 1+ MDM Medical Decision Making Medical Screen Exam Complete: Yes Emergency Medical Condition: Yes Differential Diagnosis Neutropenic fever, medication reaction, UTI, pneumonia. Narrative Course Patient roomed in emergency department, given the history that he provides seems reasonable for neutropenic fever the patient was started on vancomycin and Zosyn while awaiting lab results. Lab results returned the patient is not by definition neutropenic. His absolute neutrophil count is 1.6. This was discussed with Dr. Oh it appears as though there is no obvious source of the fever. We agrees the patient can go home given his well appearance. He will has been prescribed Levaquin has not started taking it from Dr. Sanders. Recommended that he start taking. He also prescription for azithromycin I recommended that he talk to Dr. Sanders about this first thing in the morning. He is stable for discharge. Discussed return to ED criteria. Diagnosis Primary Impression: Fever Additional Instructions: Take the Levaquin as prescribed, call Dr. Sanders this morning for further instructions. Scripts Cephalexin (Keflex)500 Mg Kml060 Mg PO Q6H 5 Days Ref 0 Prov:Jun Lopez MD 05/29/17 Disposition: 01 DISCHARGE HOME Condition: Stable Jun Lopez MD May 29, 2017 00:39
[2017-05-29] MEDS ORDERED: VANCOMYCIN INJ 1,000 MG in SODIUM CHLOR 0.9% 250 ML INJ 250 ML IV ONE (00:45)
[2017-05-29] MEDS ORDERED: PIPERACIL-TAZO 4.5 GM PREMIX 100 ML IV ONE (00:45)
--- NOTE | 2017-05-29 01:09 | RADRPT ---
EXAM DATE/TIME: 05/29/2017 00:44 [facility] COMPARISON: CHEST SINGLE AP, September 06, 2016, 17:24. INDICATIONS : Fever this evening MEDICAL HISTORY : Leukemia. Hypertension Renal failure, chronic. GERD, A-fib SURGICAL HISTORY : Coronary stent ENCOUNTER: Initial ACUITY: 1 day PAIN SCORE: 7/10 LOCATION: Bilateral chest FINDINGS: A single view of the chest demonstrates the lungs to be symmetrically aerated without evidence of mas s, infiltrate or effusion. Horizontal linear scarring or atelectasis left midlung is unchanged from prior. The cardiomediastinal contours are stable with mild tortuosity of the descending thoracic aort a. Both hemidiaphragms are well delineated. Osseous structures are intact. Left central line tip p rojects over the origin of the superior vena cava. No evidence of pneumothorax. CONCLUSION: The lungs are clear. No infiltrates seen. Francisco Javier Johnston MD on May 29, 2017 at 1:06 Board Certified Radiologist. This report was verified electronically.
[2017-05-29 01:31] LABS: ANION GAP 11 MEQ/L (5-15); AST (GOT) 24 U/L (15-37); BICARBONATE 26.5 MEQ/L (21.0-32.0); BLOOD UREA NITROGEN 25 MG/DL (7-18); CHLORIDE 100 MEQ/L (98-107); SODIUM (NA) 137 MEQ/L (136-145)
[2017-05-29 01:32] LABS: APTT (PATIENT) 33.4 SEC (24.3-30.1); INTERNATIONAL NORMALIZED RATIO 1.2 RATIO; PROTHROMBIN TIME - PATIENT 13.8 SEC (9.8-11.6)
[2017-05-29 01:34] LABS: ALKALINE PHOSPHATASE 125 U/L (45-117); ALT (GPT) 26 U/L (12-78); GLOMERULAR FILTRATION RATE 49 ML/MIN (>89); TOTAL BILIRUBIN ADULT 1.5 MG/DL (0.2-1.0)
[2017-05-29 01:35] LABS: CREATINE KINASE 75 U/L (39-308)
[2017-05-29 01:43] LABS: BLOOD, URINE NEG (NEG); GLUCOSE,URINE NEG (NEG); KETONE, URINE NEG (NEG); MUCUS URINE FEW /lpf (OCC); NITRITE,URINE NEG (NEG); PH, URINE 6.5 (5.0-8.5); URINE COLOR YELLOW (YELLW/STRAW)
[2017-05-29 01:44] LABS: COMMENT (UR) CATH-CULT NOT IND; CULTURE IF INDICATED CATH CULTURE NOT IND
[2017-05-29 01:46] LABS: HEMATOCRIT 35.1 % (39.0-51.0); MEAN CELL VOLUME 84.9 FL (80.0-100.0); MEAN CORPUSCULAR HEMOGLOBIN 27.5 PG (27.0-34.0); MEAN CORPUSCULAR HGB CONC 32.4 % (32.0-36.0); PLATELET COUNT 130 TH/MM3 (150-450); RED BLOOD COUNT 4.13 MIL/MM3 (4.50-5.90); RED CELL DISTRIBUTION WIDTH 27.5 % (11.6-17.2); WHITE BLOOD COUNT 4.4 TH/MM3 (4.0-11.0)
[2017-05-29 01:50] LABS: HEMO FLAGS AUTO DIFF
[2017-05-29 02:15] LABS: BANDS 1 % (0-6); BASOPHILS 4 % (0-2); CORRECTED NUCLEATED RBC 3 /100 WBC (0-0); EOSINOPHILS 1 % (0-4); NEUTROPHIL # MANUAL DIFF 1.6 TH/MM3 (1.8-7.7); POLYS (SEG NEUTROPHILS) 35 % (16-70); WBC DIFF SAMPLE 100
[2017-05-29 02:16] LABS: OVALOCYTES 1+ (NORMAL); PLATELET ESTIMATE SMEAR LOW (NORMAL); PLATELET MORPHOLOGY NORMAL (NORMAL); SCAN/DIFF FINAL DIFF MANUAL
[2017-05-29 03:10] VITALS: BP 134/60
[2017-05-29] MEDS ORDERED: CEPH-460 PO (05:00)
== END 2017-05-29 03:15 | disposition home or self-care (01) ==
LOC: NEPC 00:04
DX: R50.9 Fever, unspecified (principal); C92.10 Chronic myeloid leukemia, BCR/ABL-positive, not having achieved remission; E11.9 Type 2 diabetes mellitus without complications; I10 Essential (primary) hypertension; E78.00 Pure hypercholesterolemia, unspecified; H91.90 Unspecified hearing loss, unspecified ear; G47.30 Sleep apnea, unspecified; Z79.01 Long term (current) use of anticoagulants; Z79.899 Other long term (current) drug therapy; Z86.79 Personal history of other diseases of the circulatory system; Z87.19 Personal history of other diseases of the digestive system; Z87.448 Personal history of other diseases of urinary system; Z87.39 Personal history of other diseases of the musculoskeletal system and connective tissue
CPT/HCPCS: 71010; 80053; 81001; 82550; 83605; 83690; 83735; 84100; 84484; 85007; 85027; 85610; 85730; 87040; 87804; 96365; 96367; 99285; J2543; J3370; J7050

== ENCOUNTER → 2017-07-06 | Outpatient (CLI) | payer MEDICARE ==
[~2017-07-06] MED LIST changes: -CARD120T4 PO; +CEPH-460 PO; -CIPR250T52 PO; -CO Q100C9 PO
[2017-07-06 17:52] LABS: HEMOGLOBIN A1a 1.6 %; HEMOGLOBIN A1b 0.8 %; HEMOGLOBIN Ao 79.3 %; HEMOGLOBIN F 2.6 %; HEMOGLOBIN LA1C 2.8 %; HEMOGLOBIN P3 4.9 %
== END ==
LOC: OLAB 09:59
PROVIDERS: ATTEND Family Medicine
DX: E11.9 Type 2 diabetes mellitus without complications (principal)
CPT/HCPCS: 36415; 83036

== ENCOUNTER → 2018-02-23 | Outpatient (CLI) | payer MEDICARE ==
[~2018-02-23] MED LIST changes: -ASPI1TAB69 PO; -CEPH-460 PO; +CYCL10TA PO; -DIFL100T PO; +HYDR-3583 PO; -HYDR-4107 PO; -MAGN1TAB14 PO; +MAGN400T3 PO; +MS C15TA7 PO; -NITR1SUB3 SL; -OXYC1TAB63 PO; -SODI650T PO; -TEMA7.5C9 PO; -WELC625T2 PO
[2018-02-23 13:48] LABS: BILIRUBIN, URINE NEG (NEG); BLOOD, URINE NEG (NEG); GLUCOSE,URINE 70 mg/dL (NEG); HYALINE CAST, URINE 2 /lpf (RARE); KETONE, URINE NEG (NEG); MUCUS URINE FEW /lpf (OCC); NITRITE,URINE NEG (NEG); PH, URINE 5.5 (5.0-8.5); SQUAMOUS EPITHELIAL CELL URINE <1 /hpf (0-5); URINE COLOR YELLOW (YELLW/STRAW); URINE LEUKOCYTE ESTERASE NEG (NEG)
[2018-02-23 13:50] LABS: ALBUMIN 3.6 GM/DL (3.4-5.0); BICARBONATE 23.8 MEQ/L (21.0-32.0); CREATININE 1.77 MG/DL (0.60-1.30); PHOSPHORUS 4.2 MG/DL (2.5-4.9)
== END ==
LOC: OLAB 09:03
PROVIDERS: ATTEND Internal Medicine Nephrology
DX: E55.9 Vitamin D deficiency, unspecified (principal); N18.3 Chronic kidney disease, stage 3 (moderate)
CPT/HCPCS: 36415; 80069; 81001; 82306; 82570; 83970; 84156

== ENCOUNTER → 2018-03-22 | Outpatient (CLI) | payer MEDICARE ==
[2018-03-22 11:30] LABS: AUTOMATED NEUTROPHIL # 3.6 TH/MM3 (1.8-7.7); BASOPHIL % 0.5 % (0.0-2.0); EOSINOPHIL # 0.2 TH/MM3 (0-0.4); EOSINOPHIL % 2.3 % (0.0-4.0); HEMATOCRIT 32.1 % (39.0-51.0); HEMOGLOBIN 10.8 GM/DL (13.0-17.0); LYMPH % 44.4 % (9.0-44.0); LYMPHOCYTE # 3.4 TH/MM3 (1.0-4.8); MEAN CELL VOLUME 88.5 FL (80.0-100.0); MEAN CORPUSCULAR HEMOGLOBIN 29.9 PG (27.0-34.0); MEAN CORPUSCULAR HGB CONC 33.8 % (32.0-36.0); MEAN PLATELET VOLUME 6.6 FL (7.0-11.0); MONO % 8.3 % (0.0-8.0); MONOCYTE # 0.6 TH/MM3 (0-0.9); NEUT % 44.5 % (16.0-70.0); PLATELET COUNT 193 TH/MM3 (150-450); RED BLOOD COUNT 3.63 MIL/MM3 (4.50-5.90); RED CELL DISTRIBUTION WIDTH 12.8 % (11.6-17.2); WHITE BLOOD COUNT 7.8 TH/MM3 (4.0-11.0)
[2018-03-22 14:10] LABS: ALBUMIN 3.6 GM/DL (3.4-5.0); AST (GOT) 23 U/L (15-37); BICARBONATE 23.9 MEQ/L (21.0-32.0); BLOOD UREA NITROGEN 33 MG/DL (7-18); CALCIUM 8.8 MG/DL (8.5-10.1); CHLORIDE 104 MEQ/L (98-107); GLOMERULAR FILTRATION RATE 36 ML/MIN (>89); GLUCOSE,RANDOM 182 MG/DL (74-106); SODIUM (NA) 138 MEQ/L (136-145)
[2018-03-22 14:11] LABS: CHOLESTEROL 130 MG/DL (120-200)
[2018-03-22 14:21] LABS: ALKALINE PHOSPHATASE 145 U/L (45-117); ALT (GPT) 42 U/L (12-78); CHOLESTEROL/ HDL RATIO 3.84 RATIO; HDL CHOLESTEROL 33.8 MG/DL (40.0-60.0); LDL CHOLESTEROL 58 MG/DL (0-99); TOTAL BILIRUBIN ADULT 0.6 MG/DL (0.2-1.0); TOTAL PROTEIN 6.3 GM/DL (6.4-8.2); TRIGLYCERIDES 189 MG/DL (42-150)
[2018-03-22 16:35] LABS: HEMOGLOBIN A1C 7.5 % (4.3-6.0)
== END ==
LOC: OLAB 11:06
PROVIDERS: ATTEND Family Medicine
DX: E11.9 Type 2 diabetes mellitus without complications (principal); I12.9 Hypertensive chronic kidney disease with stage 1 through stage 4 chronic kidney disease, or unspecified chronic kidney disease; E11.22 Type 2 diabetes mellitus with diabetic chronic kidney disease; N18.3 Chronic kidney disease, stage 3 (moderate); D72.829 Elevated white blood cell count, unspecified
CPT/HCPCS: 36415; 80053; 80061; 83036; 84443; 85025

== ENCOUNTER 2018-04-03 19:15 | Observation (INO) | payer MEDICARE ==
[~2018-04-03] VITALS: Ht 172.7 cm; Wt 120.4 kg
[2018-04-03 19:19] VITALS: BP 194/85; PULSE 98; RESP 20; TEMP 102.5; O2SAT 98
[2018-04-03] MEDS ORDERED: CEFEPIME INJ 2,000 MG in SODIUM CHLORIDE 0.9% INJ 100 ML IV STA (19:58)
[2018-04-03 20:48] LABS: AUTOMATED NEUTROPHIL # 4.3 TH/MM3 (1.8-7.7); BASOPHIL # 0.1 TH/MM3 (0-0.2); EOSINOPHIL # 0.1 TH/MM3 (0-0.4); HEMATOCRIT 33.1 % (39.0-51.0); HEMOGLOBIN 11.2 GM/DL (13.0-17.0); LYMPH % 34.1 % (9.0-44.0); LYMPHOCYTE # 2.9 TH/MM3 (1.0-4.8); MEAN CELL VOLUME 90.5 FL (80.0-100.0); MEAN CORPUSCULAR HEMOGLOBIN 30.5 PG (27.0-34.0); MEAN CORPUSCULAR HGB CONC 33.7 % (32.0-36.0); MEAN PLATELET VOLUME 6.7 FL (7.0-11.0); MONO % 12.4 % (0.0-8.0); NEUT % 51.5 % (16.0-70.0); PLATELET COUNT 181 TH/MM3 (150-450); RED BLOOD COUNT 3.66 MIL/MM3 (4.50-5.90); RED CELL DISTRIBUTION WIDTH 12.9 % (11.6-17.2); WHITE BLOOD COUNT 8.4 TH/MM3 (4.0-11.0)
[2018-04-03 20:50] LABS: BILIRUBIN, URINE NEG (NEG); BLOOD, URINE TRACE (NEG); GLUCOSE,URINE 100 mg/dL (NEG); KETONE, URINE NEG (NEG); NITRITE,URINE NEG (NEG); URINE COLOR YELLOW (YELLW/STRAW); URINE LEUKOCYTE ESTERASE NEG (NEG)
[2018-04-03 20:58] LABS: CHLORIDE 108 MEQ/L (98-107); SODIUM (NA) 139 MEQ/L (136-145)
[2018-04-03 20:59] LABS: WBC, URINE 0-2 /hpf (0-5)
[2018-04-03 21:01] LABS: ALBUMIN 3.5 GM/DL (3.4-5.0); BICARBONATE 21.6 MEQ/L (21.0-32.0); BLOOD UREA NITROGEN 37 MG/DL (7-18); CALCIUM 8.6 MG/DL (8.5-10.1); GLUCOSE,RANDOM 181 MG/DL (74-106)
[2018-04-03 21:04] LABS: ALT (GPT) 40 U/L (12-78); AST (GOT) 24 U/L (15-37); GLOMERULAR FILTRATION RATE 43 ML/MIN (>89)
[2018-04-03 21:06] LABS: TOTAL BILIRUBIN ADULT 0.4 MG/DL (0.2-1.0); TOTAL PROTEIN 6.4 GM/DL (6.4-8.2)
[2018-04-03 21:07] LABS: ALKALINE PHOSPHATASE 143 U/L (45-117)
--- NOTE | 2018-04-03 21:15 | RADRPT ---
EXAM DATE: 04/03/2018 9:09 PM EDT AGE/SEX: 68 years / Male INDICATIONS: Fever. CLINICAL DATA: This is the patient's initial encounter. Patient reports that signs and symptoms have been present for 2 days and indicates a pain score of 0/10. MEDICAL/SURGICAL HISTORY: Leukemia. . Cardiac ablation. Infusaport. COMPARISON: [facility], CHEST SINGLE AP, 05/29/2017. . FINDINGS: Stable left IJ port with tubing terminating in the proximal SVC. No new focal pleural or parenchymal opacities. Cardiomediastinal contours are within normal limits. Bony thorax is intact. CONCLUSION: 1. No acute abnormality or significant interval change. Electronically signed by: Abdias Batista MD 04/03/2018 9:13 PM EDT
[2018-04-03] MEDS ORDERED: SODIUM CHLOR 0.9% 1000 ML INJ 1,000 ML IV SCH (21:33)
[2018-04-03 21:35] VITALS: BP 146/76; PULSE 103; RESP 18; TEMP 102.6; O2SAT 100
[2018-04-03] MEDS ORDERED: SIRO1TAB4 PO (21:39)
[2018-04-03] MEDS ORDERED: INSU100C (21:39)
[2018-04-03] MEDS ORDERED: TACR0.5C PO (21:39)
[2018-04-03] MEDS ORDERED: ACYC800T PO (21:39)
[2018-04-03] MEDS ORDERED: Vancomycin Consult Pharmacy 1 EA OTHER SCH (21:45)
[2018-04-03] MEDS ORDERED: LACTULOSE SYRUP 20 GM/30 ML CUP PO PRN (21:45)
[2018-04-03] MEDS ORDERED: SENNOSIDES 8.6 MG TAB PO PRN (21:45)
[2018-04-03] MEDS ORDERED: VANCOMYCIN INJ 1,000 MG in SODIUM CHLOR 0.9% 250 ML INJ 250 ML IV SCH (21:45)
[2018-04-03] MEDS ORDERED: SODIUM CHLORIDE 0.9% FLUSH 10 ML FLUSH IV FLUSH PRN (21:45)
[2018-04-03] MEDS ORDERED: ACETAMINOPHEN 325 MG TAB PO PRN (21:45)
[2018-04-03] MEDS ORDERED: MAGNESIUM HYDROXIDE SUSP 30 ML CUP PO PRN (21:45)
[2018-04-03] MEDS ORDERED: BISACODYL 10 MG SUPP RECTAL PRN (21:45)
[2018-04-03] MEDS ORDERED: NALOXONE HCL 0.4 MG/ML AMP IV PUSH PRN (21:45)
[2018-04-03] MEDS ORDERED: HEPARIN SODIUM - SQ 10,000 UNITS/ML VIAL SQ SCH (22:00)
[2018-04-03] MEDS ORDERED: ONDANSETRON ODT 4 MG TAB PO PRN (22:30)
[2018-04-03 22:38] VITALS: RESP 16; TEMP 99.8; O2SAT 100
--- NOTE | 2018-04-03 22:55 | PD ---
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 He is also noticed an itchy rash on the top of his head which started today. He is on tacrolimus and sirolimus. PFSH Past Medical History Hx Anticoagulant Therapy: Yes (XARELTO) Atrial Fibrillation: Yes Cancer: Yes (skin, CMML) Cardiovascular Problems: Yes (CAD) High Cholesterol: Yes Chemotherapy: Yes (HX of) Chest Pain: Yes (2005) Coronary Artery Disease: Yes Diabetes: Yes Patient Takes Glucophage: Yes Diminished Hearing: Yes Endocrine: No GERD: Yes Genitourinary: No Hepatitis: Yes Hiatal Hernia: No Hypertension: Yes Immune Disorder: No Implanted Vascular Access Dvce: Yes (POWER PORT LEFT) Kidney Stones: Yes ( calicum stones) Musculoskeletal: Yes Neurologic: No Psychiatric: No Reproductive: No Respiratory: No Sleep Apnea: Yes Thyroid Disease: No ?: Not Past Surgical History Abdominal Surgery: No AICD: No Cardiac Surgery: Yes (ablation, CATH 2005) Ear Surgery: No Eye Surgery: No Genitourinary Surgery: Yes (stent) Gynecologic Surgery: No Joint Replacement: Yes (left hip-1998,right hip-09/2008) Neurologic Surgery: Yes (CERVICAL DISK 2002) Oral Surgery: No Pacemaker: No Thoracic Surgery: No Other Surgery: Yes (arthoscopic both knees 2006) Social History Alcohol Use: Yes (rarely) Tobacco Use: No Substance Use: No Allergies-Medications (Allergen,Severity, Reaction): Coded Allergies: No Known Allergies (Unverified Allergy, Unknown, 09/18/17) Reported Meds & Prescriptions Reported Meds & Active Scripts Active Finasteride 5 Mg Tab 5 Mg PO DAILY Do not crush. Reported Humalog (Insulin Lispro) 100 Unit/Ml Cartridge Tacrolimus 0.5 Mg Cap 0.5 Mg PO Q12H Sirolimus 2 Mg Tab 2 Mg PO DAILY Acyclovir 800 Mg Tab 800 Mg PO BID Hydrocodone-Acetamin 10-325 mg (Hydrocodone/Acetaminophen) 10 Mg-325 Mg Tablet 10 Mg PO Q6HR Atorvastatin (Atorvastatin Calcium) 40 Mg Tab 40 Mg PO DAILY Allopurinol 300 Mg Tab 300 Mg PO DAILY Cardizem CD 24 HR (Diltiazem CD 24 HR) 240 Mg Caper 240 Mg PO DAILY Ventolin Hfa 18 GM Inh (Albuterol Sulfate) 90 Mcg/Act Aer 1 Puff INH Q4H PRN Tramadol (Tramadol HCl) 50 Mg Tab 50 Mg PO Q4H PRN Vitamin D-1000 (Cholecalciferol) 1,000 Unit Tab 2,000 Units PO BID Restoril (Temazepam) 15 Mg Cap 15 Mg PO HS PRN Carvedilol 25 Mg Tab 25 Mg PO BID Review of Systems Except as stated in HPI: all other systems reviewed are Neg Physical Exam Narrative GENERAL:Well appearing, no acute distress SKIN: Papular scaly rash on the scalp. HEAD: Atraumatic. Normocephalic. EYES: Pupils equal and round. No injection or drainage. ENT: Moist mucous membranes NECK: Trachea midline. CARDIOVASCULAR: Regular rate and rhythm. No murmur appreciated. RESPIRATORY: Clear to auscultation. Breath sounds equal bilaterally. GASTROINTESTINAL: Abdomen soft, non-tender, nondistended. MUSCULOSKELETAL: No obvious deformities. NEUROLOGICAL: Awake and alert. No obvious cranial nerve deficits. Moving all extremities. PSYCHIATRIC: Appropriate mood and affect; insight and judgment normal. Data Data Last Documented VS Vital Signs Date Time Temp Pulse Resp B/P (MAP) Pulse Ox O2 Delivery O2 Flow Rate FiO2 04/03/18 19:40 99 Room Air 04/03/18 19:19 102.5 98 20 194/85 (121) Orders Orders Sepsis Workup Initiated (04/03/18 ) Complete Blood Count With Diff (04/03/18 19:58) Comprehensive Metabolic Panel (04/03/18 19:58) Lactic Acid Sepsis Protocol (04/03/18 19:58) Urinalysis - C+S If Indicated (04/03/18 19:58) Blood Culture (04/03/18 19:58) Chest, Single Ap (04/03/18 19:58) Blood Glucose (04/03/18 19:58) Ecg Monitoring (04/03/18 19:58) Iv Access Insert/Monitor (04/03/18 19:58) Oximetry (04/03/18 19:58) Oxygen Administration (04/03/18 19:58) Cefepime Inj (Maxipime Inj) (04/03/18 19:58) Influenzae A/B Antigen (04/03/18 19:58) Admit Order (Ed Use Only) (04/03/18 21:34) Labs Laboratory Tests Test 04/03/18 20:30 White Blood Count 8.4 TH/MM3 Red Blood Count 3.66 MIL/MM3 Hemoglobin 11.2 GM/DL Hematocrit 33.1 % Mean Corpuscular Volume 90.5 FL Mean Corpuscular Hemoglobin 30.5 PG Mean Corpuscular Hemoglobin Concent 33.7 % Red Cell Distribution Width 12.9 % Platelet Count 181 TH/MM3 Mean Platelet Volume 6.7 FL Neutrophils (%) (Auto) 51.5 % Lymphocytes (%) (Auto) 34.1 % Monocytes (%) (Auto) 12.4 % Eosinophils (%) (Auto) 1.0 % Basophils (%) (Auto) 1.0 % Neutrophils # (Auto) 4.3 TH/MM3 Lymphocytes # (Auto) 2.9 TH/MM3 Monocytes # (Auto) 1.0 TH/MM3 Eosinophils # (Auto) 0.1 TH/MM3 Basophils # (Auto) 0.1 TH/MM3 CBC Comment DIFF FINAL Differential Comment Urine Collection Type CATH Urine Color YELLOW Urine Turbidity CLEAR Urine pH 5.0 Urine Specific [place] 1.020 Urine Protein 30 mg/dL Urine Glucose (UA) 100 mg/dL Urine Ketones NEG mg/dL Urine Occult Blood TRACE Urine Nitrite NEG Urine Bilirubin NEG Urine Urobilinogen 0.2 MG/DL Urine Leukocyte Esterase NEG Urine WBC 0-2 /hpf Microscopic Urinalysis Comment CATH-CULT NOT IND Urine Collection Time 2030 Blood Urea Nitrogen 37 MG/DL Creatinine 1.60 MG/DL Random Glucose 181 MG/DL Total Protein 6.4 GM/DL Albumin 3.5 GM/DL Calcium Level 8.6 MG/DL Alkaline Phosphatase 143 U/L Aspartate Amino Transf (AST/SGOT) 24 U/L Alanine Aminotransferase (ALT/SGPT) 40 U/L Total Bilirubin 0.4 MG/DL Sodium Level 139 MEQ/L Potassium Level 3.7 MEQ/L Chloride Level 108 MEQ/L Carbon Dioxide Level 21.6 MEQ/L Anion Gap 9 MEQ/L Estimat Glomerular Filtration Rate 43 ML/MIN Lactic Acid Level 0.7 mmol/L MDM Medical Decision Making Medical Screen Exam Complete: Yes Emergency Medical Condition: Yes Medical Record Reviewed: Yes (Patient follows with Dr. Mesa in clinic) Interpretation(s) No leukocytosis Renal insufficiency Chest x-ray: No acute process Urinalysis is negative for infection Influenza is negative Differential Diagnosis Influenza, pneumonia, urinary tract infection, sepsis Narrative Course This is a 68-year-old male who presents to the emergency department with fever. He had a bone marrow transplant in October of this year. He also is developing an itchy rash on his scalp. He was placed on a monitor and an IV was established. Labs are reassuring. Patient has a fever of 102.7 here in the emergency department. He was given a dose of cefepime. I recommended that the patient be admitted for possible sepsis. Patient does not want to stay overnight. He expressed understanding of the risks of leaving. We also spoke to the nurse practitioner national van owner operator for the bone marrow transplant team at [facility] who encouraged him to stay in the hospital but he refuses. He wants to follow-up with oncology tomorrow morning. There is also concern for graft- versus-host disease. Patient understands that if he feels at all worse he should return to the emergency department. I spoke at length with him and his who both seem reliable but they understand the they are leaving against the advice of both me and his medical team at [facility]. Diagnosis Primary Impression: Fever Qualified Codes: R50.9 - Fever, unspecified Patient Instructions: General Instructions Additional Instructions: We are concerned about you leaving. If you feel worse overnight please return to the emergency department for admission and follow up first thing in the morning with the oncology service. Med/Other Pt SpecificInfo: No Change to Meds Disposition: 01 DISCHARGE HOME Condition: Stable Shruthi Noland MD Apr 03, 2018 22:55
[2018-04-04 00:05] VITALS: BP 147/76; TEMP 99.2
[2018-04-04] MEDS ORDERED: SODIUM CHLORIDE 0.9% FLUSH 10 ML FLUSH IV FLUSH SCH (09:00)
[2018-04-04] MEDS ORDERED: CEFEPIME INJ 2,000 MG in SODIUM CHLORIDE 0.9% INJ 100 ML IV SCH (09:00)
[2018-04-04] MEDS ORDERED: DOCUSATE SODIUM 50 MG/SENNA 8.6 MG TAB PO SCH (09:00)
== END 2018-04-04 00:15 | disposition left against medical advice (07) ==
LOC: PHED 19:15 → PHEDA 21:34
PROVIDERS: ADMIT Family Medicine; ATTEND Family Medicine
DX: R50.9 Fever, unspecified (principal); R21 Rash and other nonspecific skin eruption; I25.10 Atherosclerotic heart disease of native coronary artery without angina pectoris; I10 Essential (primary) hypertension; E78.00 Pure hypercholesterolemia, unspecified; E11.9 Type 2 diabetes mellitus without complications; G47.30 Sleep apnea, unspecified; K75.9 Inflammatory liver disease, unspecified; K21.9 Gastro-esophageal reflux disease without esophagitis; H91.90 Unspecified hearing loss, unspecified ear; Z79.899 Other long term (current) drug therapy; Z85.828 Personal history of other malignant neoplasm of skin; Z79.01 Long term (current) use of anticoagulants; Z94.81 Bone marrow transplant status
CPT/HCPCS: 71045; 80053; 80195; 80197; 81001; 83605; 85025; 87040; 87804; 96365; 99285; G0378; J0692

== ENCOUNTER 2018-04-05 16:23 | Inpatient (IN) | payer MEDICARE ==
[~2018-04-05] VITALS: Ht 172.7 cm; Wt 122.0 kg
[~2018-04-05 16:23] MED LIST changes: +ACYC800T PO; -COEN1CAP PO; -CYCL10TA PO; -FISHCAP4 PO; -HYDR500C PO; +INSU100C; -LACTCAP8 PO; -MAGN400T3 PO; -MS C15TA7 PO; +SIRO1TAB4 PO; +TACR0.5C PO; -UROCTAB2 PO
[2018-04-05 16:39] VITALS: BP_SYST 169; BP_SYST 190; BP_DIAS 147; BP_DIAS 75; PULSE 94; RESP 24; TEMP 100.7; O2SAT 98
[2018-04-05] MEDS ORDERED: SODIUM CHLORIDE 0.9% FLUSH 10 ML FLUSH IVF PRN (17:00)
[2018-04-05] MEDS ORDERED: RESP: ALBUTEROL 2.5 MG/IPRATROPIUM 0.5 MG NEB (SCH) INH ONE (17:00)
[2018-04-05 17:29] VITALS: O2SAT 96
--- NOTE | 2018-04-05 17:37 | RADRPT ---
EXAM DATE: 04/05/2018 5:25 PM EDT AGE/SEX: 68 years / Male INDICATIONS: Short of breath. CLINICAL DATA: This is the patient's initial encounter. Patient reports that signs and symptoms have been present for 1 day and indicates a pain score of 0/10. MEDICAL/SURGICAL HISTORY: . Leukemia. . Cardiac ablation. Infusaport. COMPARISON: [facility], CHEST SINGLE AP, 04/03/2018. . FINDINGS: There is a CT compatible Asmbsw-l-Plef in place from the left internal jugular approach. The heart si ze is normal. There are some minimal patchy density at the medial right base. The left lung is grossl y clear. CONCLUSION: Thickened mild atelectasis or consolidation at the medial right lung base. Electronically signed by: Luis Felipe Park MD 04/05/2018 5:36 PM EDT
[2018-04-05 18:33] LABS: INTERNATIONAL NORMALIZED RATIO 1.5 RATIO; PROTHROMBIN TIME - PATIENT 15.5 SEC (9.8-11.6)
--- NOTE | 2018-04-05 18:41 | PD ---
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 He was seen Monday in [place] and was given a dose of cefepime. He was advised to stay in the hospital, but refused at that time. He went to see Dr. Oh yesterday and was started on Flagyl due to a few episodes of diarrhea. Per , he was afebrile until he started to run a fever again last night. He has had a persistent cough. He does complain of some shortness of breath. He also has nasal congestion. He is no longer on chemo, but takes antirejection meds. He denies any leg pain. Severity is mild to moderate. PFSH Past Medical History Hx Anticoagulant Therapy: No Atrial Fibrillation: Yes Cancer: Yes (skin, CMML) Cardiovascular Problems: Yes (CAD) High Cholesterol: Yes Chemotherapy: Yes (HX of) Chest Pain: Yes (2005) Coronary Artery Disease: Yes Diabetes: Yes Diminished Hearing: Yes Endocrine: No GERD: Yes Genitourinary: No Hepatitis: Yes Hiatal Hernia: No Hypertension: Yes Immune Disorder: No Implanted Vascular Access Dvce: Yes (POWER PORT LEFT) Kidney Stones: Yes ( calicum stones) Musculoskeletal: Yes Neurologic: No Psychiatric: No Reproductive: No Respiratory: No Sleep Apnea: Yes Thyroid Disease: No Past Surgical History Abdominal Surgery: No AICD: No Cardiac Surgery: Yes (ablation, CATH 2005) Ear Surgery: No Eye Surgery: No Genitourinary Surgery: Yes (stent) Gynecologic Surgery: No Joint Replacement: Yes (left hip-1998,right hip-09/2008) Neurologic Surgery: Yes (CERVICAL DISK 2002) Oral Surgery: No Pacemaker: No Thoracic Surgery: No Other Surgery: Yes (arthoscopic both knees 2006) Social History Alcohol Use: Yes (rarely) Tobacco Use: No Substance Use: No Allergies-Medications (Allergen,Severity, Reaction): Coded Allergies: No Known Allergies (Unverified Allergy, Unknown, 09/18/17) Uncoded Allergies: plasma (Allergy, Severe, Anaphylaxis, 04/05/18) Reported Meds & Prescriptions Reported Meds & Active Scripts Active Finasteride 5 Mg Tab 5 Mg PO DAILY Do not crush. Reported Humalog (Insulin Lispro) 100 Unit/Ml Cartridge Tacrolimus 0.5 Mg Cap 0.5 Mg PO Q12H Sirolimus 2 Mg Tab 2 Mg PO DAILY Acyclovir 800 Mg Tab 800 Mg PO BID Hydrocodone-Acetamin 10-325 mg (Hydrocodone/Acetaminophen) 10 Mg-325 Mg Tablet 10 Mg PO Q6HR Atorvastatin (Atorvastatin Calcium) 40 Mg Tab 40 Mg PO DAILY Allopurinol 300 Mg Tab 300 Mg PO DAILY Cardizem CD 24 HR (Diltiazem CD 24 HR) 240 Mg Caper 240 Mg PO DAILY Ventolin Hfa 18 GM Inh (Albuterol Sulfate) 90 Mcg/Act Aer 1 Puff INH Q4H PRN Tramadol (Tramadol HCl) 50 Mg Tab 50 Mg PO Q4H PRN Vitamin D-1000 (Cholecalciferol) 1,000 Unit Tab 2,000 Units PO BID Restoril (Temazepam) 15 Mg Cap 15 Mg PO HS PRN Carvedilol 25 Mg Tab 25 Mg PO BID Review of Systems Except as stated in HPI: all other systems reviewed are Neg General / Constitutional: Positive: Fever HENT: No: Headaches, Lightheadedness Cardiovascular: No: Chest Pain or Discomfort Respiratory: Positive: Cough, Shortness of Breath Gastrointestinal: No: Nausea, Vomiting Skin: No Rash, No Change in Pigmentation Neurologic: No: Weakness, Dizziness Physical Exam Narrative GENERAL: Awake and alert, no acute distress. SKIN: Focused skin assessment warm/dry. HEAD: Atraumatic. Normocephalic. EYES: Pupils equal and round. No scleral icterus. ENT: No nasal bleeding or discharge. Mucous membranes pink and moist. NECK: Trachea midline. No JVD. CARDIOVASCULAR: Regular rate and rhythm. No murmur appreciated. RESPIRATORY: No accessory muscle use. Clear to auscultation. Breath sounds equal bilaterally. GASTROINTESTINAL: Abdomen soft, non-tender, nondistended. MUSCULOSKELETAL: No obvious deformities. No clubbing. No cyanosis. Mild 1+ edema bilateral lower extremities. NEUROLOGICAL: Awake and alert. No obvious cranial nerve deficits. Motor grossly within normal limits. Normal speech. PSYCHIATRIC: Appropriate mood and affect; insight and judgment normal. Data Data Last Documented VS Vital Signs Date Time Temp Pulse Resp B/P (MAP) Pulse Ox O2 Delivery O2 Flow Rate FiO2 04/05/18 19:50 102.7 90 19 196/88 (124) 97 Room Air Orders Orders Complete Blood Count With Diff (04/05/18 16:58) Comprehensive Metabolic Panel (04/05/18 16:58) B-Type Natriuretic Peptide (04/05/18 16:58) Act Partial Throm Time (Ptt) (04/05/18 16:58) Prothrombin Time / Inr (Pt) (04/05/18 16:58) Troponin I (04/05/18 16:58) Iv Access Insert/Monitor (04/05/18 16:58) Electrocardiogram (04/05/18 16:58) Ecg Monitoring (04/05/18 16:58) Oximetry (04/05/18 16:58) Oxygen Administration (04/05/18 16:58) Chest, Single Ap (04/05/18 16:58) Sodium Chloride 0.9% Flush (Ns Flush) (04/05/18 17:00) Albuterol-Ipratropium Neb (Duoneb Neb) (04/05/18 17:00) Ct Pulmonary Angiogram (04/05/18 17:28) Blood Culture (04/05/18 18:41) Acetaminophen (Tylenol) (04/05/18 20:00) Sepsis Workup Initiated (04/05/18 ) Lactic Acid Sepsis Protocol (04/05/18 20:28) Influenzae A/B Antigen (04/05/18 20:28) Blood Culture (04/05/18 20:28) Blood Glucose (04/05/18 20:28) Levofloxacin 750 Mg Premix Inj (Levaquin (04/05/18 20:38) Sodium Chlor 0.9% 1000 Ml Inj (Ns 1000 M (04/05/18 20:28) Sodium Chlor 0.9% 1000 Ml Inj (Ns 1000 M (04/05/18 20:28) Iodixanol 320 Inj (Rad Ct) (Visipaque 32 (04/05/18 20:53) Admit Order (Ed Use Only) (04/05/18 21:17) Labs Laboratory Tests Test 04/05/18 18:05 04/05/18 18:50 04/05/18 21:05 B-Type Natriuretic Peptide 273 PG/ML White Blood Count 15.4 TH/MM3 Red Blood Count 4.20 MIL/MM3 Hemoglobin 12.5 GM/DL Hematocrit 37.2 % Mean Corpuscular Volume 88.5 FL Mean Corpuscular Hemoglobin 29.7 PG Mean Corpuscular Hemoglobin Concent 33.6 % Red Cell Distribution Width 13.6 % Platelet Count 163 TH/MM3 Mean Platelet Volume 6.9 FL Neutrophils (%) (Auto) 64.6 % Lymphocytes (%) (Auto) 24.3 % Monocytes (%) (Auto) 10.3 % Eosinophils (%) (Auto) 0.0 % Basophils (%) (Auto) 0.8 % Neutrophils # (Auto) 10.0 TH/MM3 Lymphocytes # (Auto) 3.7 TH/MM3 Monocytes # (Auto) 1.6 TH/MM3 Eosinophils # (Auto) 0.0 TH/MM3 Basophils # (Auto) 0.1 TH/MM3 CBC Comment DIFF FINAL Differential Comment Prothrombin Time 15.5 SEC Prothromb Time International Ratio 1.5 RATIO Activated Partial Thromboplast Time 23.1 SEC Blood Urea Nitrogen 25 MG/DL Creatinine 1.70 MG/DL Random Glucose 194 MG/DL Total Protein 6.8 GM/DL Albumin 3.4 GM/DL Calcium Level 8.9 MG/DL Alkaline Phosphatase 138 U/L Aspartate Amino Transf (AST/SGOT) 28 U/L Alanine Aminotransferase (ALT/SGPT) 31 U/L Total Bilirubin 0.5 MG/DL Sodium Level 133 MEQ/L Potassium Level 3.8 MEQ/L Chloride Level 103 MEQ/L Carbon Dioxide Level 18.5 MEQ/L Anion Gap 12 MEQ/L Estimat Glomerular Filtration Rate 41 ML/MIN Troponin I 0.05 NG/ML Lactic Acid Level 1.7 mmol/L [facility] Medical Decision Making Medical Screen Exam Complete: Yes Emergency Medical Condition: Yes Medical Record Reviewed: Yes Interpretation(s) ECG shows sinus rhythm at a rate of 89, first-degree AV block, low voltage Differential Diagnosis PE versus pneumonia versus bacteremia Narrative Course Patient is a 68-year-old male comes in complaining of cough and fever. He has history of leukemia, status post bone marrow transplant. IV established, labs sent. CTA of the chest ordered. Chest x-ray shows no acute abnormalities. Patient signed out to Dr. Butler to disposition the patient. Diagnosis Primary Impression: Fever Qualified Codes: R50.9 - Fever, unspecified Ashley Smtih MD Apr 05, 2018 18:41
[2018-04-05 19:23] LABS: BASOPHIL # 0.1 TH/MM3 (0-0.2); BASOPHIL % 0.8 % (0.0-2.0); HEMATOCRIT 37.2 % (39.0-51.0); HEMOGLOBIN 12.5 GM/DL (13.0-17.0); LYMPH % 24.3 % (9.0-44.0); LYMPHOCYTE # 3.7 TH/MM3 (1.0-4.8); MEAN CELL VOLUME 88.5 FL (80.0-100.0); MEAN CORPUSCULAR HEMOGLOBIN 29.7 PG (27.0-34.0); MEAN CORPUSCULAR HGB CONC 33.6 % (32.0-36.0); MEAN PLATELET VOLUME 6.9 FL (7.0-11.0); MONO % 10.3 % (0.0-8.0); MONOCYTE # 1.6 TH/MM3 (0-0.9); NEUT % 64.6 % (16.0-70.0); PLATELET COUNT 163 TH/MM3 (150-450); RED CELL DISTRIBUTION WIDTH 13.6 % (11.6-17.2); WHITE BLOOD COUNT 15.4 TH/MM3 (4.0-11.0)
[2018-04-05 19:46] LABS: ALT (GPT) 31 U/L (12-78)
[2018-04-05 19:50] VITALS: BP 196/88; PULSE 90; RESP 19; TEMP 102.7; O2SAT 97
[2018-04-05 19:50] LABS: ALKALINE PHOSPHATASE 138 U/L (45-117); TOTAL BILIRUBIN ADULT 0.5 MG/DL (0.2-1.0); TOTAL PROTEIN 6.8 GM/DL (6.4-8.2); TROPONIN I 0.05 NG/ML (0.02-0.05)
[2018-04-05] MEDS ORDERED: ACETAMINOPHEN 500 MG CPLT PO ONE (20:00)
[2018-04-05 20:09] LABS: ALBUMIN 3.4 GM/DL (3.4-5.0); AST (GOT) 28 U/L (15-37); BICARBONATE 18.5 MEQ/L (21.0-32.0); BLOOD UREA NITROGEN 25 MG/DL (7-18); CALCIUM 8.9 MG/DL (8.5-10.1); CHLORIDE 103 MEQ/L (98-107); GLOMERULAR FILTRATION RATE 41 ML/MIN (>89); GLUCOSE,RANDOM 194 MG/DL (74-106); SODIUM (NA) 133 MEQ/L (136-145)
[2018-04-05] MEDS ORDERED: SODIUM CHLOR 0.9% 1000 ML INJ 800 ML IV ONE (20:28)
[2018-04-05] MEDS ORDERED: SODIUM CHLOR 0.9% 1000 ML INJ 1,000 ML IV ONE (20:28)
--- NOTE | 2018-04-05 20:32 | PD ---
Physical Exam Narrative GENERAL: SKIN: Warm and dry. HEAD: Atraumatic. Normocephalic. EYES: Pupils equal and round. No scleral icterus. No injection or drainage. ENT: No nasal bleeding or discharge. Mucous membranes pink and moist. NECK: Trachea midline. No JVD. CARDIOVASCULAR: Regular rate and rhythm. RESPIRATORY: No accessory muscle use. rll crackles, GASTROINTESTINAL: Abdomen soft, non-tender, nondistended. Hepatic and splenic margins not palpable. MUSCULOSKELETAL: Extremities without clubbing, cyanosis, or edema. No obvious deformities. NEUROLOGICAL: Awake and alert. No obvious cranial nerve deficits. Motor grossly within normal limits. Five out of 5 muscle strength in the arms and legs. Normal speech. PSYCHIATRIC: Appropriate mood and affect; insight and judgment normal. Data Data Last Documented VS Vital Signs Date Time Temp Pulse Resp B/P (MAP) Pulse Ox O2 Delivery O2 Flow Rate FiO2 04/05/18 19:50 102.7 90 19 196/88 (124) 97 Room Air Orders Orders Complete Blood Count With Diff (04/05/18 16:58) Comprehensive Metabolic Panel (04/05/18 16:58) B-Type Natriuretic Peptide (04/05/18 16:58) Act Partial Throm Time (Ptt) (04/05/18 16:58) Prothrombin Time / Inr (Pt) (04/05/18 16:58) Troponin I (04/05/18 16:58) Iv Access Insert/Monitor (04/05/18 16:58) Electrocardiogram (04/05/18 16:58) Ecg Monitoring (04/05/18 16:58) Oximetry (04/05/18 16:58) Oxygen Administration (04/05/18 16:58) Chest, Single Ap (04/05/18 16:58) Sodium Chloride 0.9% Flush (Ns Flush) (04/05/18 17:00) Albuterol-Ipratropium Neb (Duoneb Neb) (04/05/18 17:00) Ct Pulmonary Angiogram (04/05/18 17:28) Blood Culture (04/05/18 18:41) Acetaminophen (Tylenol) (04/05/18 20:00) Labs Laboratory Tests Test 04/05/18 18:05 04/05/18 18:50 B-Type Natriuretic Peptide 273 PG/ML White Blood Count 15.4 TH/MM3 Red Blood Count 4.20 MIL/MM3 Hemoglobin 12.5 GM/DL Hematocrit 37.2 % Mean Corpuscular Volume 88.5 FL Mean Corpuscular Hemoglobin 29.7 PG Mean Corpuscular Hemoglobin Concent 33.6 % Red Cell Distribution Width 13.6 % Platelet Count 163 TH/MM3 Mean Platelet Volume 6.9 FL Neutrophils (%) (Auto) 64.6 % Lymphocytes (%) (Auto) 24.3 % Monocytes (%) (Auto) 10.3 % Eosinophils (%) (Auto) 0.0 % Basophils (%) (Auto) 0.8 % Neutrophils # (Auto) 10.0 TH/MM3 Lymphocytes # (Auto) 3.7 TH/MM3 Monocytes # (Auto) 1.6 TH/MM3 Eosinophils # (Auto) 0.0 TH/MM3 Basophils # (Auto) 0.1 TH/MM3 CBC Comment DIFF FINAL Differential Comment Prothrombin Time 15.5 SEC Prothromb Time International Ratio 1.5 RATIO Activated Partial Thromboplast Time 23.1 SEC Blood Urea Nitrogen 25 MG/DL Creatinine 1.70 MG/DL Random Glucose 194 MG/DL Total Protein 6.8 GM/DL Albumin 3.4 GM/DL Calcium Level 8.9 MG/DL Alkaline Phosphatase 138 U/L Aspartate Amino Transf (AST/SGOT) 28 U/L Alanine Aminotransferase (ALT/SGPT) 31 U/L Total Bilirubin 0.5 MG/DL Sodium Level 133 MEQ/L Potassium Level 3.8 MEQ/L Chloride Level 103 MEQ/L Carbon Dioxide Level 18.5 MEQ/L Anion Gap 12 MEQ/L Estimat Glomerular Filtration Rate 41 ML/MIN Troponin I 0.05 NG/ML [facility] Medical Record Reviewed: Yes Supervised Visit with TRAVON: No Narrative Course Leukocytosis 15,000 but without any apparent left shift., No anemia for H &H, platelet count normal at 163,000. However this may not tell the true story since the patient is on multiple immune suppressants Coagulation profile studies INR slightly elevated at 1.5 Electrolytes show some abnormalities in particular mild hyponatremia 133, some prerenal azotemia with a BUN of 25 and a creatinine of 1.7, as well as a decreased GFR of 41, with hyperglycemia 194. Normal liver enzymes, elevated beta natruretic peptide of 273 Although negative first troponin borderline suspicious at 0.05 Chest x-ray read by radiologist as thickened mild atelectasis or consolidation of middle right lung base Due to the patient's history of CML with bone marrow transplant and on immunosuppressants the patient is at high risk for developing sepsis and septic shock due to the infection. The patient was provided with an opportunity to be admitted earlier in the week, which the patient declined, however now the patient sees that the error of his ways and he is now ready to be admitted. Critical Care Narrative CRITICAL CARE NOTE: With evaluation of the patient, labs, EKG, receipt of radiologic studies, administration of medications, reevaluation the patient and discussion of the patient with the admitting physicians, the total critical care time was [45] minutes. Time to perform other separately billable procedures was not included in the critical care time. Diagnosis Primary Impression: Fever Qualified Codes: R50.9 - Fever, unspecified Additional Impression: Suspicious pneumonia right middle lobe Admitting Information Admitting Physician Requests: Admit Marshall Butler MD Apr 05, 2018 20:32
[2018-04-05] MEDS ORDERED: LEVOFLOXACIN 750 MG PREMIX INJ 150 ML IV STA (20:38)
--- NOTE | 2018-04-05 20:48 | RADRPT ---
EXAM DATE: 04/05/2018 8:41 PM EDT AGE/SEX: 68 years / Male INDICATIONS: Cough, congestion and fevers. CLINICAL DATA: This is the patient's initial encounter. Patient reports that signs and symptoms have been present for 4 - 6 days and indicates a pain score of 6/10. MEDICAL/SURGICAL HISTORY: Cardiovascular disease. Anemia. Leukemia. Renal calculi. . Infusapor t. RADIATION DOSE: 10.81 CTDI (mGy) COMPARISON: Chest x-ray 04/05/2018. TECHNIQUE: Volumetric scanning was performed using a multi-row detector CT scanner during bolus infu lucia of 50 ml Visipaque 320 (iodixanol) nonionic water-soluble contrast as a single exam dose. The d derek was post processed with a variety of visualization algorithms including full volume maximum inten sity projection and sliding thin slab reformation. Using automated exposure control and adjustment of the mA and/or kV according to patient size, radiation dose was kept as low as reasonably achievable to obtain optimal diagnostic quality images. DICOM format image data is available electronically for review and comparison. FINDINGS: Pulmonary Arteries: No filling defects are seen in the pulmonary arteries out to the subsegmental ve ssels. The left and right pulmonary arteries are normal in diameter. Lung: A nodular like infiltrate is seen within the right lung base. Left lung is clear. No effusions .. Effusion: None. Mediastinum: The heart is normal in size. Significant coronary artery atherosclerotic calcifications . Aorta and pulmonary arteries are normal in caliber. No adenopathy.. Other: The axilla is unremarkable. CONCLUSION: 1. No pulmonary emboli. 2. Right lower lobe infiltrate. 3. Significant coronary artery atherosclerotic calcifications. Electronically signed by: Francisco Javier Marte MD 04/05/2018 8:46 PM EDT
[2018-04-05] MEDS ORDERED: IODIXANOL 320 MG/ML 10 ML VIAL (for Rad CT) IVCONTRAST ONE (20:53)
[2018-04-05] MEDS ORDERED: BISACODYL 10 MG SUPP RECTAL PRN (22:15)
[2018-04-05] MEDS ORDERED: ACETAMINOPHEN 325 MG TAB PO PRN (22:15)
[2018-04-05] MEDS ORDERED: SODIUM CHLORIDE 0.9% FLUSH 10 ML FLUSH IV FLUSH PRN (22:15)
[2018-04-05] MEDS ORDERED: ONDANSETRON ODT 4 MG TAB PO PRN (22:15)
[2018-04-05] MEDS ORDERED: SENNOSIDES 8.6 MG TAB PO PRN (22:15)
[2018-04-05] MEDS ORDERED: Vancomycin Consult Pharmacy 1 EA OTHER SCH (22:15)
[2018-04-05] MEDS ORDERED: LACTULOSE SYRUP 20 GM/30 ML CUP PO PRN (22:15)
[2018-04-05] MEDS ORDERED: NALOXONE HCL 0.4 MG/ML AMP IV PUSH PRN (22:15)
[2018-04-05] MEDS ORDERED: MAGNESIUM HYDROXIDE SUSP 30 ML CUP PO PRN (22:15)
--- NOTE | 2018-04-05 22:26 | HHI.HP ---
HPI Service [facility] Primary Care Physician Grupo Mckeon MD Admission Diagnosis PNA, SIRS, IMMUNOSUPPRESSED Diagnoses: Travel History International Travel<30 Days: No Contact w/Intl Traveler <30 Da: No Traveled to Known Affected Are: No History of Present Illness 68-year-old male with a past medical history significant for CML status post bone marrow transplant on 10/23/17, now on immunosuppression, presents to the emergency department with a 2 day history of fever. Patient was seen 2 days ago and Leo for a fever of 102, given 1 dose of cefepime and advised to stay. The patient reports he felt better so he left and followed up with his oncologist yesterday who prescribed Flagyl as the patient had explosive diarrhea yesterday. He has not had any further diarrhea. He endorses shortness of breath and continued fever. He has a productive cough that started yesterday. His fever at home was 102.7. He denies any chest pain. No heart palpitations. No abdominal pain. No nausea/vomiting. No lateralizing signs/symptoms. Review of Systems Except as stated in HPI: all other systems reviewed are Neg Past Family Social History Past Medical History CML Diabetes mellitus BPH History of atrial fibrillation status post ablation not on anticoagulation Past Surgical History Cardiac ablation Bilateral hip replacement Laminectomy Cardiac catheterization without stent placement Reported Medications Reported Meds & Active Scripts Active Finasteride 5 Mg Tab 5 Mg PO DAILY Do not crush. Reported Humalog (Insulin Lispro) 100 Unit/Ml Cartridge Tacrolimus 0.5 Mg Cap 0.5 Mg PO Q12H Sirolimus 2 Mg Tab 2 Mg PO DAILY Acyclovir 800 Mg Tab 800 Mg PO BID Hydrocodone-Acetamin 10-325 mg (Hydrocodone/Acetaminophen) 10 Mg-325 Mg Tablet 10 Mg PO Q6HR Atorvastatin (Atorvastatin Calcium) 40 Mg Tab 40 Mg PO DAILY Allopurinol 300 Mg Tab 300 Mg PO DAILY Cardizem CD 24 HR (Diltiazem CD 24 HR) 240 Mg Caper 240 Mg PO DAILY Ventolin Hfa 18 GM Inh (Albuterol Sulfate) 90 Mcg/Act Aer 1 Puff INH Q4H PRN Tramadol (Tramadol HCl) 50 Mg Tab 50 Mg PO Q4H PRN Vitamin D-1000 (Cholecalciferol) 1,000 Unit Tab 2,000 Units PO BID Restoril (Temazepam) 15 Mg Cap 15 Mg PO HS PRN Carvedilol 25 Mg Tab 25 Mg PO BID Allergies: Coded Allergies: No Known Allergies (Unverified Allergy, Unknown, 09/18/17) Uncoded Allergies: plasma (Allergy, Severe, Anaphylaxis, 04/05/18) Family History Both parents with CAD Social History Negative for alcohol, tobacco and illicit drugs Physical Exam Vital Signs Vital Signs Date Time Temp Pulse Resp B/P (MAP) Pulse Ox O2 Delivery O2 Flow Rate FiO2 04/05/18 19:50 102.7 90 19 196/88 (124) 97 Room Air 04/05/18 17:29 96 Room Air 04/05/18 16:39 100.7 94 24 169/75 (106) 98 Physical Exam GENERAL: male sitting up in bed SKIN: No rashes, ecchymoses or lesions. Cool and dry. HEAD: Atraumatic. Normocephalic. No temporal or scalp tenderness. EYES: Pupils equal round and reactive. Extraocular motions intact. No scleral icterus. No injection or drainage. ENT: Nose without bleeding, purulent drainage or septal hematoma. Throat without erythema, tonsillar hypertrophy or exudate. Uvula midline. Airway patent. NECK: Trachea midline. No JVD or lymphadenopathy. Supple, nontender, no meningeal signs. CARDIOVASCULAR: Regular rate and rhythm without murmurs, gallops, or rubs. RESPIRATORY: Transmitted upper airway sounds. CTAB GASTROINTESTINAL: Abdomen soft, non-tender, nondistended. No hepato-splenomegaly , or palpable masses. No guarding. MUSCULOSKELETAL: Extremities without clubbing, cyanosis, or edema. No joint tenderness, effusion, or edema noted. No calf tenderness. NEUROLOGICAL: Awake and alert. Cranial nerves II through XII intact. Motor and sensory grossly within normal limits. Normal speech. Laboratory Laboratory Tests Test 04/05/18 18:05 04/05/18 18:50 04/05/18 21:05 B-Type Natriuretic Peptide 273 White Blood Count 15.4 Red Blood Count 4.20 Hemoglobin 12.5 Hematocrit 37.2 Mean Corpuscular Volume 88.5 Mean Corpuscular Hemoglobin 29.7 Mean Corpuscular Hemoglobin Concent 33.6 Red Cell Distribution Width 13.6 Platelet Count 163 Mean Platelet Volume 6.9 Neutrophils (%) (Auto) 64.6 Lymphocytes (%) (Auto) 24.3 Monocytes (%) (Auto) 10.3 Eosinophils (%) (Auto) 0.0 Basophils (%) (Auto) 0.8 Neutrophils # (Auto) 10.0 Lymphocytes # (Auto) 3.7 Monocytes # (Auto) 1.6 Eosinophils # (Auto) 0.0 Basophils # (Auto) 0.1 CBC Comment DIFF FINAL Differential Comment Prothrombin Time 15.5 Prothromb Time International Ratio 1.5 Activated Partial Thromboplast Time 23.1 Blood Urea Nitrogen 25 Creatinine 1.70 Random Glucose 194 Total Protein 6.8 Albumin 3.4 Calcium Level 8.9 Alkaline Phosphatase 138 Aspartate Amino Transf (AST/SGOT) 28 Alanine Aminotransferase (ALT/SGPT) 31 Total Bilirubin 0.5 Sodium Level 133 Potassium Level 3.8 Chloride Level 103 Carbon Dioxide Level 18.5 Anion Gap 12 Estimat Glomerular Filtration Rate 41 Troponin I 0.05 Lactic Acid Level 1.7 Date/Time Source Procedure Growth Status 04/05/18 21:05 Blood Peripheral Aerobic Blood Culture Pending Received 04/05/18 21:05 Blood Peripheral Anaerobic Blood Culture Pending Received 04/05/18 21:05 Nasal Washing Influenza Types A,B Antigen (HIMANSHU) - Final NEGATIVE FOR FLU A AND B ANTIGEN.... Complete Result Diagram: 04/05/18184904/05/181849 Caprini VTE Risk Assessment Caprini VTE Risk Assessment: Mod/High Risk (score >= 2) Caprini Risk Assessment Model Point Value = 1 Point Value = 2 Point Value = 3 Point Value = 5 Age 41-60 Minor surgery BMI > 25 kg/m2 Swollen legs Varicose veins or History of unexplained or recurrent spontaneous Oral contraceptives or hormone replacement Sepsis (< 1 month) Serious lung disease, including pneumonia (< 1 month) Abnormal pulmonary function Acute myocardial infarction Congestive heart failure (< 1 month) History of inflammatory bowel disease Medical patient at bed rest Age 61-74 Arthroscopic surgery Major open surgery (> 45 min) Laparoscopic surgery (> 45 min) Malignancy Confined to bed (> 72 hours) Immobilizing plaster cast Central venous access Age >= 75 History of VTE Family history of VTE Factor V Leiden Prothrombin [id number] Lupus anticoagulant Anticardiolipin antibodies Elevated serum homocysteine Heparin-induced thrombocytopenia Other congenital or acquired thrombophilia Stroke (< 1 month) Elective arthroplasty Hip, pelvis, or leg fracture Acute spinal cord injury (< 1 month) Prophylaxis Regimen Total Risk Factor Score Risk Level Prophylaxis Regimen 0-1 Low Early ambulation 2 Moderate Order ONE of the following: *Sequential Compression Device (SCD) *Heparin 5000 units SQ BID 3-4 Higher Order ONE of the following medications: *Heparin 5000 units SQ TID *Enoxaparin/Lovenox 40 mg SQ daily (WT < 150 kg, CrCl > 30 mL/min) *Enoxaparin/Lovenox 30 mg SQ daily (WT < 150 kg, CrCl > 10-29 mL/min) *Enoxaparin/Lovenox 30 mg SQ BID (WT < 150 kg, CrCl > 30 mL/min) AND/OR *Sequential Compression Device (SCD) 5 or more Highest Order ONE of the following medications: *Heparin 5000 units SQ TID (Preferred with Epidurals) *Enoxaparin/Lovenox 40 mg SQ daily (WT < 150 kg, CrCl > 30 mL/min) *Enoxaparin/Lovenox 30 mg SQ daily (WT < 150 kg, CrCl > 10-29 mL/min) *Enoxaparin/Lovenox 30 mg SQ BID (WT < 150 kg, CrCl > 30 mL/min) AND *Sequential Compression Device (SCD) Assessment and Plan Assessment and Plan Assessment/plan: 1. Pneumonia in immunocompromised patient/fever/sepsis CTA significant for right lower lobe infiltrate Patient with leukocytosis and tachycardia Blood cultures pending Vancomycin/cefepime Medical oncology consulted, appreciate recommendations 2. CML Status post bone marrow transplant on 10/23/17 Medical oncology consulted as above Continue immunosuppression once medications reconciled 3. Diabetes mellitus Sliding-scale insulin Monitor blood glucose 4. History of atrial fibrillation Continue metoprolol and diltiazem once medications reconciled 5. BPH Continue home medications 6. Chronic kidney disease Creatinine 1.70, baseline for the patient Monitor renal function FEN Heart healthy diabetic diet Electrolytes: Monitor and replete as needed NS at 125 cc/hour Lovenox Physician Certification 2 Midnight Certification Type: Admission for Inpatient Services Order for Inpatient Services The services are ordered in accordance with Medicare regulations or non- Medicare payer requirements, as applicable. In the case of services not specified as inpatient-only, they are appropriately provided as inpatient services in accordance with the 2-midnight benchmark. Estimated LOS (days): 2 2 days is the estimated time the patient will need to remain in the hospital, assuming treatment plan goals are met and no additional complications. Post-Hospital Plan: Not yet determined Alisa Soliz MD Apr 05, 2018 22:25
[2018-04-05] MEDS ORDERED: DEXTROSE 50% IN WATER 50 ML VIAL(D50) IV PUSH PRN (22:30)
[2018-04-05] MEDS ORDERED: GLUCAGON 1 MG/ML VIAL OTHER PRN (22:30)
[2018-04-05] MEDS ORDERED: CEFEPIME INJ 2,000 MG in SODIUM CHLORIDE 0.9% INJ 100 ML IV SCH (22:30)
[2018-04-05] MEDS: CEFEPIME INJ 2,000 MG in SODIUM CHLORIDE 0.9% INJ 100 ML IV SCH (23:27)
[2018-04-05] MEDS: ENOXAPARIN SODIUM 40 MG/0.4 ML SYRINGE SQ SCH (23:28)
[2018-04-05] MEDS: SODIUM CHLOR 0.9% 1000 ML INJ 1,000 ML IV SCH (23:28)
[2018-04-05 23:31] VITALS: TEMP 100.6
[2018-04-06] VITALS (12 sets, daily range): BP systolic 139–192; BP diastolic 69–88; PULSE 78–102; RESP 18–22; TEMP 99.3–101.1; O2SAT 94–97
[2018-04-06] MEDS ORDERED: VANCOMYCIN INJ 2,300 MG in SODIUM CHLORID 0.9% 500 ML INJ 500 ML IV SCH ×2
[2018-04-06] MEDS: RESP: ALBUTEROL 2.5 MG/IPRATROPIUM 0.5 MG NEB (PRN) NEB ×2 (00:28→06:53)
[2018-04-06] MEDS: SODIUM CHLOR 0.9% 1000 ML INJ 1,000 ML IV SCH ×2 (06:04→19:25)
[2018-04-06] MEDS ORDERED: SODIUM CHLORIDE 0.9% FLUSH 10 ML FLUSH IV FLUSH PRN (06:30)
[2018-04-06] MEDS: CEFEPIME INJ 2,000 MG in SODIUM CHLORIDE 0.9% INJ 100 ML IV SCH ×3 (07:00→20:28)
[2018-04-06] MEDS: INSULIN ASPART SUPPLEMENTAL SCALE SQ SCH ×4 (08:00→20:24)
[2018-04-06] MEDS: DOCUSATE SODIUM 50 MG/SENNA 8.6 MG TAB PO SCH ×2 (08:29→20:24)
[2018-04-06] MEDS: SODIUM CHLORIDE 0.9% FLUSH 10 ML FLUSH IV FLUSH SCH ×2 (08:29→20:10)
[2018-04-06] MEDS ORDERED: PHENOL 1.4% SOLN 180 ML BTL OROPHARYNG PRN (09:30)
--- NOTE | 2018-04-06 09:39 | EKG ---
Date Performed: 04/05/2018 Time Performed: 21:33:23 PTAGE: 68 years EKG: Sinus rhythm WITH FIRST DEGREE AV BLOCK LOW QRS VOLTAGE IN EXTREMITY LEADS Old inferior infarction ABNORMAL ECG PREVIOUS TRACING : 04/05/2018 17.15 Since the previous tracing, no significant change noted DOCTOR: Grupo Thompson Interpretating Date/Time 04/06/2018 09:37:54
--- NOTE | 2018-04-06 09:39 | EKG ---
Date Performed: 04/05/2018 Time Performed: 17:15:52 PTAGE: 68 years EKG: Sinus rhythm WITH FIRST DEGREE AV BLOCK LOW QRS VOLTAGE IN EXTREMITY LEADS INFERIOR MYOCARDIAL INFARCTION ABNORMA L ECG PREVIOUS TRACING : 10/11/2016 12.06 Since the previous tracing, no significant change noted DOCTOR: Grupo Thompson Interpretating Date/Time 04/06/2018 09:37:36
[2018-04-06] MEDS ORDERED: ALTEPLASE RECOMBINANT 2 MG VIAL INTRACATH PRN (10:00)
[2018-04-06] MEDS ORDERED: VANCOMYCIN INJ 2,250 MG in SODIUM CHLORID 0.9% 500 ML INJ 500 ML IV ONE (11:00)
[2018-04-06] MEDS: RESP: ALBUTEROL 2.5 MG/IPRATROPIUM 0.5 MG NEB (SCH) NEB ×3 (11:05→19:41)
--- NOTE | 2018-04-06 12:00 | HHI.PR ---
Subjective Remarks The patient said that he feels miserable. He says he has a black, liquid diarrhea. He has been coughing significantly. He says it is hard to get a deep breath. He denies any chest pain. He has been ambulating to the bathroom. Family at the bedside. Discussed with nursing at the bedside. Objective Vitals Vital Signs Date Time Temp Pulse Resp B/P (MAP) Pulse Ox O2 Delivery O2 Flow Rate FiO2 04/06/18 09:53 95 21 04/06/18 07:54 101.1 92 20 156/87 (110) 94 04/06/18 04:00 102 04/06/18 04:00 90 18 189/88 (121) 94 04/06/18 00:00 99.9 88 18 192/80 (117) 97 04/06/18 00:00 80 04/05/18 23:35 04/05/18 23:31 100.6 04/05/18 19:50 102.7 90 19 196/88 (124) 97 Room Air 04/05/18 17:29 96 Room Air 04/05/18 16:39 100.7 94 24 169/75 (106) 98 I/O 04/05/18 04/05/18 04/05/18 04/06/18 04/06/18 04/06/18 07:00 15:00 23:00 07:00 15:00 23:00 Intake Total 240 ml Output Total 475 ml Balance -235 ml Intake Oral 240 ml Output Urine Total 475 ml Result Diagram: 04/05/18 18504/05/[address] Angiography 04/05/18 1728 Signed Impressions: CONCLUSION: 1. No pulmonary emboli. 2. Right lower lobe infiltrate. 3. Significant coronary artery atherosclerotic calcifications. Chest X-Ray 04/05/18 1658 Signed Impressions: CONCLUSION: Thickened mild atelectasis or consolidation at the medial right lung base. Objective Remarks GENERAL: Appears uncomfortable s/t coughing. SKIN: No rashes, ecchymoses or lesions. Cool and dry. HEAD: Atraumatic. Normocephalic. No temporal or scalp tenderness. EYES: Pupils equal round and reactive. Extraocular motions intact. No scleral icterus. No injection or drainage. ENT: Nose without bleeding, purulent drainage or septal hematoma. Throat without erythema, tonsillar hypertrophy or exudate. Uvula midline. Airway patent. NECK: Trachea midline. No JVD or lymphadenopathy. Supple, nontender, no meningeal signs. CARDIOVASCULAR: Regular rate and rhythm without murmurs, gallops, or rubs. RESPIRATORY: Coarse breath sounds. GASTROINTESTINAL: Abdomen soft, non-tender, nondistended. No hepato-splenomegaly , or palpable masses. No guarding. MUSCULOSKELETAL: Extremities with 1-2+ edema. NEUROLOGICAL: Awake and alert. Cranial nerves II through XII intact. Motor and sensory grossly within normal limits. Normal speech. A/P Assessment and Plan Pneumonia in immunocompromised patient/ Fever/ Sepsis CTA significant for right lower lobe infiltrate. Also has watery diarrhea. Patient with leukocytosis and tachycardia. - Blood cultures. - check C diff PCR, stool culture. - check a UA. - IV Vancomycin/cefepime. - IVFs. - Medical oncology and ID consults pending. - Tiffanie FLOOD. 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 - Continue immunosuppression. Diabetes mellitus Relatively well controlled. - Sliding-scale insulin. HTN Poorly controlled. - resume home meds. - clonidine as needed. Atrial fibrillation Rate controlled at this time. - Continue Coreg and diltiazem. Chronic kidney disease Creatinine 1.70, baseline for the patient. - Monitor renal function and avoid nephrotoxins. PPx: Odilon Chung DO Apr 06, 2018 12:00
[2018-04-06 12:34] LABS: AUTOMATED NEUTROPHIL # 6.8 TH/MM3 (1.8-7.7); BASOPHIL % 0.4 % (0.0-2.0); HEMATOCRIT 33.9 % (39.0-51.0); HEMOGLOBIN 11.4 GM/DL (13.0-17.0); LYMPH % 27.9 % (9.0-44.0); LYMPHOCYTE # 3.1 TH/MM3 (1.0-4.8); MEAN CELL VOLUME 88.4 FL (80.0-100.0); MEAN CORPUSCULAR HEMOGLOBIN 29.9 PG (27.0-34.0); MEAN CORPUSCULAR HGB CONC 33.8 % (32.0-36.0); MONOCYTE # 1.1 TH/MM3 (0-0.9); NEUT % 61.7 % (16.0-70.0); PLATELET COUNT 134 TH/MM3 (150-450); RED BLOOD COUNT 3.83 MIL/MM3 (4.50-5.90); WHITE BLOOD COUNT 11.1 TH/MM3 (4.0-11.0)
[2018-04-06] MEDS: CARVEDILOL 12.5 MG TAB PO SCH ×2 (12:59→20:10)
[2018-04-06] MEDS: ATORVASTATIN 40 MG TAB PO SCH (13:00)
[2018-04-06] MEDS: DILTIAZEM-CD 240 MG CAP ER PO SCH (13:00)
[2018-04-06] MEDS: SIROLIMUS 2 MG TAB PO SCH (13:00)
[2018-04-06 13:08] LABS: BICARBONATE 17.9 MEQ/L (21.0-32.0); CALCIUM 8.5 MG/DL (8.5-10.1); CREATININE 1.66 MG/DL (0.60-1.30)
[2018-04-06] MEDS: ACYCLOVIR 800 MG TAB PO SCH ×2 (14:37→20:09)
[2018-04-06] MEDS: TACROLIMUS 0.5 MG CAP PO SCH (14:37)
[2018-04-06] MEDS: guaiFENesin/CODEINE SYRUP 200 MG/20 MG/10 ML CUP PO PRN ×3 (14:37→23:25)
[2018-04-06] MEDS: LOPERAMIDE HCL 2 MG CAP PO PRN ×2 (18:30→23:25)
--- NOTE | 2018-04-06 19:57 | HHI.IDPN ---
Note Infectious Disease Note ID consult Patient seen and examined. Full consult dictated. Impression Pneumonia Immunosuppression Fever The kidney disease CML Recommendations Continue vancomycin Continue cefepime Continue acyclovir Follow sputum culture Follow blood cultures Monitor the temperature and white count Follow clinical status. Vin Powell MD Apr 06, 2018 19:57
[2018-04-06] MEDS: guaiFENesin E.R. 600 MG TAB PO SCH (20:10)
[2018-04-06] MEDS: ENOXAPARIN SODIUM 40 MG/0.4 ML SYRINGE SQ SCH (20:30)
[2018-04-06] MEDS ORDERED: TEMAZEPAM 15 MG CAP PO PRN (21:00)
[2018-04-07] VITALS (11 sets, daily range): BP systolic 129–154; BP diastolic 55–76; PULSE 70–79; RESP 18–22; TEMP 98.2–99.1; O2SAT 94–97
[2018-04-07] MEDS: TACROLIMUS 0.5 MG CAP PO SCH ×2 (00:11→12:31)
--- NOTE | 2018-04-07 01:00 | MB ---
cc: Vin Powell MD DATE: 04/06/2018 DATE OF CONSULTATION: 04/06/2018 REQUESTING PHYSICIAN: Dr. Chambers. REASON FOR CONSULTATION: Fever, pneumonia, diarrhea, recent bone marrow transplant. HISTORY OF PRESENT ILLNESS: This is a 68-year-old white male who has a history of chronic myelomonocytic leukemia. The patient was diagnosed in 09/2010. 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 He was noted to be in remission without evidence of residual disease. The patient started developing cough and fever 3 days ago. He was evaluated at [facility] on 04/04 and was given a dose of cefepime and was requested to follow up with the oncology doctor. He had a temperature of 102.5 degrees on 04/03, and that prompted him to seek evaluation of the fever. When he was seen by his oncologist, he was noted to have redness at the vertex of his head and he was afebrile and his lungs were reported to be clear. Chest x-ray on 04/03 showed no acute abnormalities. The patient notes that he started coughing and he developed chills, soreness of the throat, and the fever persisted, and he was evaluated in the emergency department. He was felt to have cold and flu-like symptoms. The cough became persistent and he had some shortness of breath as well. Chest x-ray was performed and it showed right lower lobe infiltrate. The patient was admitted to the hospital and is currently on vancomycin and cefepime. He is on immunosuppressive medications with tacrolimus and sirolimus. His temperature has been spiking still; the last T-max was 102.7 last night, and today it was 101.1. He also developed diarrhea after he was started on metronidazole a couple days ago. He continues to have diarrhea. Stool C. difficile toxin is negative. Currently, he is sitting in a chair and he says that his breathing is better and he has less coughing when he is sitting upright. A CT angiogram of the chest was performed and it shows right lower lobe infiltrate. No pulmonary emboli were noted. Sputum culture was ordered; it is pending. The Gram stain showed mixed carmencita and moderate white blood cells. The patient says that he has been coughing up greenish sputum and is bringing up more sputum than in the prior days. His urine output is good. His estimated GFR is 42. He reports that he has chronic renal insufficiency. His white blood cell count was elevated at 15.4 yesterday, and today it is 11.1. The patient states that he feels a little better compared to yesterday. PAST MEDICAL HISTORY: Chronic myelomonocytic leukemia, diabetes mellitus, benign prostatic hypertrophy, history of atrial fibrillation treated with ablation, lateral hip replacement, laminectomy, cervical discectomy, L5 through S1 discectomy in 1990. ALLERGIES: NO KNOWN DRUG ALLERGIES. MEDICATIONS: 1. Vancomycin. 2. Cefepime. 3. Proscar. 4. Allopurinol. 5. Mucinex. 6. Acyclovir p.o. 7. Lipitor. 8. Sirolimus. 9. Tacrolimus. 10. Coreg. 11. Robitussin. 12. Alpa-Colace. 13. Tylenol p.r.n. SOCIAL HISTORY: The patient is . No tobacco, rarely alcohol use, no illicit drugs. FAMILY HISTORY: Noncontributory. REVIEW OF SYSTEMS: CONSTITUTIONAL: Significant for fever and chills. HEAD, EARS, EYES, NOSE AND THROAT: No visual blurring or diplopia. No nasal drainage or bleeding. Positive for soreness of the throat. No neck pain or swelling. CARDIOVASCULAR: Denies palpitation or chest pain. RESPIRATORY: Positive for cough and shortness of breath. GASTROINTESTINAL: Positive for diarrhea. GENITOURINARY: Denies urgency, frequency or dysuria. HEMATOPOIETIC: Denies easy bruising or bleeding. ENDOCRINE: Denies polyuria or polydipsia. INTEGUMENTARY: Notes prior recent history of itching. MUSCULOSKELETAL: Denies muscle aches, joint aches or pains. NEUROLOGIC: Denies problems with coordination. PSYCHIATRIC: Denies depression. PHYSICAL EXAMINATION: GENERAL: This is a well-developed, moderately obese male who is in no acute distress. VITAL SIGNS: Temperature 99.9, BP 139/69, respirations 20, heart rate 83. HEENT: The head is atraumatic. Extraocular movements grossly intact. Pupils reactive to light. No icterus. Oropharynx: Moist mucosa without lesions. NECK: Supple without adenopathy. LUNGS: Diminished breath sounds throughout. HEART: Regular S1 and S2. No audible murmurs, rubs or gallops. ABDOMEN: Bowel sounds present. Obese, soft, no tenderness appreciated. No mass palpable. RECTAL: Not performed. EXTREMITIES: No clubbing or cyanosis; 3+ edema of the lower extremities. SKIN: No diffuse rash. The patient has tree-bark appearance of the tibias. NEUROLOGIC: No gross focal finding. PSYCHIATRIC: The patient is calm and cooperative. LABORATORY DATA: WBC 11.1, platelets 134, hemoglobin 11.4; 61% neutrophils, 27% lymphocytes, 10% monocytes. Creatinine 1.66, BUN 26, sodium 138. Estimated GFR is 42. LFTs normal. Stool C. difficile toxin negative. Blood cultures from 04/05: No growth in 1 day. Influenza test negative. Stool PCR for enteric pathogens negative. IMPRESSION: 1. Right lower lobe pneumonia. 2. Immunosuppression. The patient is status post bone marrow transplantation for chronic myelomonocytic leukemia. 3. Fever and chills along with elevated white blood cell count in patient with pneumonia and possibly sepsis. 4. Chronic kidney disease. RECOMMENDATIONS: 1. Continue vancomycin. 2. Continue cefepime. 3. Monitor the sputum culture. 4. Monitor blood cultures. 5. Monitor temperature and white blood cell count. 6. Follow the clinical status. The patient's temperature appears to be lower and the white blood cell count has decreased, and therefore he potentially could be responding to current antibiotic treatment. 7. Monitor the stools. Thank you for this consultation. I will follow the patient's progress along with you and will make further recommendations upon followup if necessary. MD REJI Jenkins/DAYANA , 07:22 PM , 12:58 AM
[2018-04-07] MEDS: SODIUM CHLOR 0.9% 1000 ML INJ 1,000 ML IV SCH ×2 (03:45→13:30)
[2018-04-07] MEDS: guaiFENesin/CODEINE SYRUP 200 MG/20 MG/10 ML CUP PO PRN ×4 (04:02→21:58)
[2018-04-07 05:02] LABS: HEMATOCRIT 30.4 % (39.0-51.0); HEMOGLOBIN 10.4 GM/DL (13.0-17.0); MEAN CELL VOLUME 87.7 FL (80.0-100.0); MEAN CORPUSCULAR HEMOGLOBIN 29.9 PG (27.0-34.0); MEAN CORPUSCULAR HGB CONC 34.1 % (32.0-36.0); MEAN PLATELET VOLUME 7.1 FL (7.0-11.0); PLATELET COUNT 125 TH/MM3 (150-450); RED BLOOD COUNT 3.46 MIL/MM3 (4.50-5.90); RED CELL DISTRIBUTION WIDTH 13.9 % (11.6-17.2); WHITE BLOOD COUNT 7.6 TH/MM3 (4.0-11.0)
[2018-04-07] MEDS: RESP: ALBUTEROL 2.5 MG/IPRATROPIUM 0.5 MG NEB (PRN) NEB (05:22)
[2018-04-07 05:36] LABS: BICARBONATE 17.6 MEQ/L (21.0-32.0); CALCIUM 8.3 MG/DL (8.5-10.1); CREATININE 1.38 MG/DL (0.60-1.30); MAGNESIUM 1.9 MG/DL (1.5-2.5)
[2018-04-07] MEDS: CEFEPIME INJ 2,000 MG in SODIUM CHLORIDE 0.9% INJ 100 ML IV SCH ×2 (07:58→20:35)
[2018-04-07] MEDS: CARVEDILOL 12.5 MG TAB PO SCH ×2 (07:59→20:34)
[2018-04-07] MEDS: ALLOPURINOL 300 MG TAB PO SCH (07:59)
[2018-04-07] MEDS: ATORVASTATIN 40 MG TAB PO SCH (07:59)
[2018-04-07] MEDS: FINASTERIDE 5 MG TAB PO SCH (07:59)
[2018-04-07] MEDS: ACYCLOVIR 800 MG TAB PO SCH ×2 (07:59→20:35)
[2018-04-07] MEDS: SIROLIMUS 2 MG TAB PO SCH (08:00)
[2018-04-07] MEDS: DILTIAZEM-CD 240 MG CAP ER PO SCH (08:00)
[2018-04-07] MEDS: guaiFENesin E.R. 600 MG TAB PO SCH ×2 (08:00→20:35)
[2018-04-07] MEDS: INSULIN ASPART SUPPLEMENTAL SCALE SQ SCH ×4 (08:00→21:15)
[2018-04-07] MEDS: SODIUM CHLORIDE 0.9% FLUSH 10 ML FLUSH IV FLUSH SCH ×2 (08:00→20:35)
[2018-04-07] MEDS: RESP: ALBUTEROL 2.5 MG/IPRATROPIUM 0.5 MG NEB (SCH) NEB ×3 (08:20→20:04)
[2018-04-07] MEDS: DOCUSATE SODIUM 50 MG/SENNA 8.6 MG TAB PO SCH ×2 (09:00→20:35)
--- NOTE | 2018-04-07 09:50 | PD.ONC.PN ---
Subjective Subjective Remarks Afebrile overnight. Patient resting in chair in room in nad. still with wet cough. overall feeling fatigued. Objective Data Date Time Temp Pulse Resp B/P (MAP) Pulse Ox O2 Delivery O2 Flow Rate FiO2 04/07/18 08:20 97 21 04/07/18 07:49 98.5 77 18 129/76 (93) 95 04/07/18 07:00 70 04/07/18 04:00 73 04/07/18 04:00 98.7 76 22 147/74 (98) 94 04/07/18 00:00 79 04/07/18 00:00 98.2 77 20 154/74 (100) 96 04/06/18 20:05 99.3 79 142/69 (93) 04/06/18 20:00 78 04/06/18 19:42 96 04/06/18 17:00 86 04/06/18 16:05 99.9 83 20 139/69 (92) 94 04/06/18 11:15 99.6 90 22 161/82 (108) 94 04/06/18 11:00 79 04/06/18 09:53 95 21 04/07/18 04/07/18 04/07/18 07:00 15:00 23:00 Intake Total 250 ml Output Total 600 ml Balance -350 ml Result Diagram: 04/07/18 0400 04/07/18 0400 Laboratory Results Laboratory Tests Test 04/06/18 12:12 04/06/18 14:30 04/07/18 04:00 White Blood Count 11.1 TH/MM3 7.6 TH/MM3 Red Blood Count 3.83 MIL/MM3 3.46 MIL/MM3 Hemoglobin 11.4 GM/DL 10.4 GM/DL Hematocrit 33.9 % 30.4 % Mean Corpuscular Volume 88.4 FL 87.7 FL Mean Corpuscular Hemoglobin 29.9 PG 29.9 PG Mean Corpuscular Hemoglobin Concent 33.8 % 34.1 % Red Cell Distribution Width 14.0 % 13.9 % Platelet Count 134 TH/MM3 125 TH/MM3 Mean Platelet Volume 7.0 FL 7.1 FL Neutrophils (%) (Auto) 61.7 % Lymphocytes (%) (Auto) 27.9 % Monocytes (%) (Auto) 10.0 % Eosinophils (%) (Auto) 0.0 % Basophils (%) (Auto) 0.4 % Neutrophils # (Auto) 6.8 TH/MM3 Lymphocytes # (Auto) 3.1 TH/MM3 Monocytes # (Auto) 1.1 TH/MM3 Eosinophils # (Auto) 0.0 TH/MM3 Basophils # (Auto) 0.0 TH/MM3 CBC Comment DIFF FINAL Differential Comment Blood Urea Nitrogen 26 MG/DL 27 MG/DL Creatinine 1.66 MG/DL 1.38 MG/DL Random Glucose 178 MG/DL 130 MG/DL Calcium Level 8.5 MG/DL 8.3 MG/DL Sodium Level 138 MEQ/L 141 MEQ/L Potassium Level 3.3 MEQ/L 3.3 MEQ/L Chloride Level 108 MEQ/L 111 MEQ/L Carbon Dioxide Level 17.9 MEQ/L 17.6 MEQ/L Anion Gap 12 MEQ/L 12 MEQ/L Estimat Glomerular Filtration Rate 42 ML/MIN 52 ML/MIN Stool C. difficile Toxin (PCR) NEGATIVE Stl C. difficile Toxin Epiderm 027 PRESUMPTIVE NEGATIVE Magnesium Level 1.9 MG/DL Culture Results Microbiology Date/Time Source Procedure Growth Status 04/05/18 21:05 Blood Peripheral Aerobic Blood Culture - Preliminary NO GROWTH IN 1 DAY Resulted 04/05/18 21:05 Blood Peripheral Anaerobic Blood Culture - Preliminary NO GROWTH IN 1 DAY Resulted 04/05/18 21:00 Blood Peripheral Aerobic Blood Culture - Preliminary NO GROWTH IN 1 DAY Resulted 04/05/18 21:00 Blood Peripheral Anaerobic Blood Culture - Preliminary NO GROWTH IN 1 DAY Resulted 04/05/18 18:50 Blood Peripheral Aerobic Blood Culture - Preliminary NO GROWTH IN 1 DAY Resulted 04/05/18 18:50 Blood Peripheral Anaerobic Blood Culture - Preliminary NO GROWTH IN 1 DAY Resulted 04/05/18 18:45 Blood Peripheral Aerobic Blood Culture - Preliminary NO GROWTH IN 1 DAY Resulted 04/05/18 18:45 Blood Peripheral Anaerobic Blood Culture - Preliminary NO GROWTH IN 1 DAY Resulted 04/06/18 14:30 Stool Stool - Final NO ENTERIC PATHOGENS DETECTED BY PCR... Complete 04/06/18 12:00 Sputum Expectorated Sputum Gram Stain - Final Resulted 04/06/18 12:00 Sputum Expectorated Sputum Sputum Culture Pending Resulted 04/05/18 21:05 Nasal Washing Influenza Types A,B Antigen (HIMANSHU) - Final NEGATIVE FOR FLU A AND B ANTIGEN.... Complete Administered Medications Medications (Trade) Dose Ordered Sig/Warren Route PRN Reason Start Time Stop Time Status Last Admin Dose Admin Sodium Chloride 1,000 ml @ 125 mls/hr Q8H IV 04/05/18 22:04 04/07/18 03:45 Sodium Chloride (NS Flush) 2 ml BID IV FLUSH 04/06/18 09:00 04/07/18 08:00 Acetaminophen (Tylenol) 650 mg Q4H PRN PO TEMP > 100.4 04/05/18 22:15 04/06/18 08:29 Enoxaparin Sodium (Lovenox Inj) 40 mg Q24H SQ 04/05/18 22:15 04/06/18 20:30 Albuterol/ Ipratropium (Duoneb Neb) 1 ampule Q4HR NEB PRN NEB SOB/wheezing 04/05/18 22:15 04/07/18 05:22 Insulin Aspart (NovoLOG SUPPLEMENTAL SCALE) 1 ACHS SLIDING SCALE SQ 04/06/18 08:00 04/06/18 17:00 Heparin Sodium (Porcine) (Heparin Central Flush) 250 units UNSCH PRN IV FLUSH SEE PROTOCOL TABLE 04/06/18 06:30 04/06/18 08:30 Albuterol/ Ipratropium (Duoneb Neb) 1 ampule Q6HR WHILE AWAKE NEB NEB 04/06/18 10:00 04/07/18 08:20 Alteplase, Recombinant (Cathflo Activase Inj) 2 mg Q2H PRN INTRACATH clogged port 04/06/18 10:00 04/06/18 17:50 Acyclovir (Zovirax) 800 mg BID PO 04/06/18 13:00 04/07/18 07:59 Allopurinol (Zyloprim) 300 mg DAILY PO 04/07/18 09:00 04/07/18 07:59 Atorvastatin Calcium (Lipitor) 40 mg DAILY PO 04/06/18 13:00 04/07/18 07:59 Carvedilol (Coreg) 25 mg BID PO 04/06/18 12:30 04/07/18 07:59 Diltiazem HCl (Cardizem Cd) 240 mg DAILY PO 04/06/18 13:00 04/07/18 08:00 Finasteride (Proscar) 5 mg DAILY PO 04/07/18 09:00 04/07/18 07:59 Sirolimus (Rapamune) 2 mg DAILY PO 04/06/18 13:00 04/07/18 08:00 Tacrolimus (Prograf) 0.5 mg Q12H PO 04/06/18 13:00 04/07/18 00:11 Guaifenesin/ Codeine Phosphate (Robitussin Ac 200-20 Mg/10 ml Liq) 10 ml Q4H PRN PO cough 04/06/18 13:00 04/07/18 04:02 Cefepime HCl 2000 mg/Sodium Chloride 100 ml @ 200 mls/hr Q12H IV 04/06/18 21:00 04/07/18 07:58 Guaifenesin (Mucinex Er) 600 mg BID PO 04/06/18 21:00 04/07/18 08:00 Loperamide HCl (Imodium) 2 mg Q6H PRN PO diarrhea 04/06/18 18:00 04/06/18 23:25 Objective Remarks GENERAL: Pleasant middle aged male, sitting up in chair next to bed in [facility]. SKIN: Warm and dry. HEAD: Normocephalic. EYES: No injection or drainage. NECK: Supple, trachea midline. CARDIOVASCULAR: Regular rate and rhythm RESPIRATORY: crackles in right lower lobe. otherwise clear. GASTROINTESTINAL: Abdomen soft, non-tender, nondistended. EXTREMITIES: No cyanosis. bilateral lower extremity edema with chronic venous stasis skin changes. NEUROLOGICAL: awake and alert. normal speech. moving extremities. Assessment/Plan Problem List: (1) Pneumonia ICD Codes: J18.9 - Pneumonia, unspecified organism Plan: --on Cefepime and Vanco --CXR showed RLL infiltrate. --on Tacrolimus and Sirolimus (immunosuppression) --BC no growth (2) CMML (chronic myelomonocytic leukemia) ICD Codes: C93.10 - Chronic myelomonocytic leukemia not having achieved remission Plan: s/p transplant in 10/2017 (3) Thrombocytopenia ICD Codes: D69.6 - Thrombocytopenia, unspecified Status: Acute Plan: --likely suppressed d/t infection. monitor. Assessment 68y/o male with CMML in remission admitted with pneumonia. Attending Statement The exam, history, and the medical decision-making described in the above note were completed with the assistance of the mid-level provider. I reviewed and agree with the findings presented. I attest that I had a [id number] encounter with the patient on the same day, and personally performed and documented my assessment and findings in the medical record. Out of bed to the chair He feels better. Able to bring up bronchial secretions with coughing. No more fevers. ID note reviewed. Blood cultures, stool cultures and sputum culture results noted and they are negative. Leukocytosis has resolved, indication that he is responding to the current antibiotics. Will ask ID to switch to oral antibiotics and if he remains afebrile then he could be discharged home. Discuss with the patient and his . Patient will be monitor while in the hospital. Problem Qualifiers (1) CMML (chronic myelomonocytic leukemia): Qualified Codes: C93.11 - Chronic myelomonocytic leukemia, in remission Annabel Mathias Apr 07, 2018 09:50 Jessica Briscoe MD Apr 07, 2018 20:25
[2018-04-07] MEDS ORDERED: VANCOMYCIN INJ 1,250 MG in SODIUM CHLOR 0.9% 250 ML INJ 250 ML IV SCH (11:00)
[2018-04-07] MEDS: LOPERAMIDE HCL 2 MG CAP PO PRN ×2 (11:09→21:23)
[2018-04-07] MEDS ORDERED: POTASSIUM CHLORIDE 20 MEQ CONTROLLED RELEASE TAB PO ONE (13:15)
--- NOTE | 2018-04-07 13:47 | HHI.PR ---
Subjective Remarks The pt was feeling better. Still coughing. Diarrhea is improving. Family at the bedside. Objective Vitals Vital Signs Date Time Temp Pulse Resp B/P (MAP) Pulse Ox O2 Delivery O2 Flow Rate FiO2 04/07/18 11:07 98.5 78 18 146/69 (94) 97 04/07/18 11:00 78 04/07/18 08:20 97 21 04/07/18 07:49 98.5 77 18 129/76 (93) 95 04/07/18 07:00 70 04/07/18 04:00 73 04/07/18 04:00 98.7 76 22 147/74 (98) 94 04/07/18 00:00 79 04/07/18 00:00 98.2 77 20 154/74 (100) 96 04/06/18 20:05 99.3 79 142/69 (93) 04/06/18 20:00 78 04/06/18 19:42 96 04/06/18 17:00 86 04/06/18 16:05 99.9 83 20 139/69 (92) 94 I/O 04/06/18 04/06/18 04/06/18 04/07/18 04/07/18 04/07/18 07:00 15:00 23:00 07:00 15:00 23:00 Intake Total 240 ml 100 ml 1482.5 ml 250 ml Output Total 475 ml 300 ml 600 ml Balance -235 ml 100 ml 1182.5 ml -350 ml Intake Oral 240 ml 960 ml 250 ml IV Total 100 ml 522.5 ml Output Urine Total 475 ml 300 ml 600 ml # Voids 3 # Bowel Movements 4 Result Diagram: 04/07/18 0400 04/07/18 [address] Angiography 04/05/18 1728 Signed Impressions: CONCLUSION: 1. No pulmonary emboli. 2. Right lower lobe infiltrate. 3. Significant coronary artery atherosclerotic calcifications. Chest X-Ray 04/05/18 1658 Signed Impressions: CONCLUSION: Thickened mild atelectasis or consolidation at the medial right lung base. Objective Remarks GENERAL: NAD. SKIN: No rashes, ecchymoses or lesions. Cool and dry. HEAD: Atraumatic. Normocephalic. No temporal or scalp tenderness. EYES: Pupils equal round and reactive. Extraocular motions intact. No scleral icterus. No injection or drainage. ENT: Nose without bleeding, purulent drainage or septal hematoma. Throat without erythema, tonsillar hypertrophy or exudate. Uvula midline. Airway patent. NECK: Trachea midline. No JVD or lymphadenopathy. Supple, nontender, no meningeal signs. CARDIOVASCULAR: Regular rate and rhythm without murmurs, gallops, or rubs. RESPIRATORY: Coarse breath sounds, wheezing. GASTROINTESTINAL: Abdomen soft, non-tender, nondistended. No hepato-splenomegaly , or palpable masses. No guarding. MUSCULOSKELETAL: Extremities with 1-2+ edema. NEUROLOGICAL: Awake and alert. Cranial nerves II through XII intact. Motor and sensory grossly within normal limits. Normal speech. A/P Assessment and Plan Pneumonia in immunocompromised patient/ Fever/ Sepsis CTA significant for right lower lobe infiltrate. Also has watery diarrhea. Patient with leukocytosis and tachycardia. Oncology and ID consults appreciated. C diff negative. - Blood cultures. - check a UA. - IV Vancomycin/cefepime. - Robitussin AC. 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 - Medical oncology following. - Continue immunosuppression. Check levels in AM. Diabetes mellitus Relatively well controlled. - Sliding-scale insulin. HTN Well controlled. - resume home meds. - clonidine as needed. Atrial fibrillation Rate controlled at this time. - Continue Coreg and diltiazem. Chronic kidney disease/ Hypokalemia Creatinine improving. - Monitor renal function and avoid nephrotoxins. - KCl repleted. PPx: Odilon Chung DO Apr 07, 2018 13:47
[2018-04-07] MEDS ORDERED: VANCOMYCIN 1,000 MG/NS 250 ML IV ONE ×2 (14:00)
[2018-04-07 15:44] LABS: AMORPHOUS SEDIMENT, URINE FEW; BACTERIA, URINE OCC /hpf; BILIRUBIN, URINE NEG (NEG); BLOOD, URINE MOD (NEG); GLUCOSE,URINE 50 mg/dL (NEG); HYALINE CAST, URINE 1 /lpf (RARE); KETONE, URINE 20 mg/dL (NEG); MUCUS URINE FEW /lpf (OCC); NITRITE,URINE NEG (NEG); SQUAMOUS EPITHELIAL CELL URINE <1 /hpf (0-5); URINE COLOR YELLOW (YELLW/STRAW); URINE LEUKOCYTE ESTERASE NEG (NEG)
--- NOTE | 2018-04-07 21:11 | HHI.IDPN ---
Subjective Subjective Remarks CAMILA Guerrero for . This is a 68-year-old white male who has a history of chronic myelomonocytic leukemia. The patient was diagnosed in 09/2010. 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 He was noted to be in remission without evidence of residual disease. The patient started developing cough and fever 3 days ago. He was evaluated at [facility] on 04/04 and was given a dose of cefepime and was requested to follow up with the oncology doctor. He had a temperature of 102.5 degrees on 04/03, and that prompted him to seek evaluation of the fever. When he was seen by his oncologist, he was noted to have redness at the vertex of his head and he was afebrile and his lungs were reported to be clear. Chest x-ray on 04/03 showed no acute abnormalities. The patient notes that he started coughing and he developed chills, soreness of the throat, and the fever persisted, and he was evaluated in the emergency department. He was felt to have cold and flu-like symptoms. The cough became persistent and he had some shortness of breath as well. Chest x-ray was performed and it showed right lower lobe infiltrate. The patient was admitted to the hospital and is currently on vancomycin and cefepime. He is on immunosuppressive medications with tacrolimus and sirolimus. His temperature has been spiking still; the last T-max ubl144.7 last night, and today it was 101.1. He also developed diarrhea after he was started on metronidazole a couple days ago. He continues to have diarrhea. Stool C. difficile toxin is negative. Currently, he is sitting in a chair and he says that his breathing is better and he has less coughing when he is sitting upright. A CT angiogram of the chest was performed and it shows right lower lobe infiltrate. No pulmonary emboli were noted. Sputum culture was ordered; it is pending. The Gram stain showed mixed carmencita and moderate white blood cells. The patient says that he has been coughing up greenish sputum and is bringing up more sputum than in the prior days. His urine output is good. His estimated GFR is 42. He reports that he has chronic renal insufficiency. His white blood cell count was elevated at 15.4 yesterday , and today it is 11.1. The patient states that he feels a little better compared to yesterday. Overnight events reviewed No fevers No rash No diarrhea Plts low. WBC improved. Off neutropenic precautions. Cough improved. Voice hoarse from coughing. reports he feeds corn to the deer in backyard. Also she reports they had some air duct vents and remodeling done in the house recently. At risk for Legionella. Antibiotics Cefepime IV Vanco IV Lines Lines ok Past Medical History Chronic myelomonocytic leukemia, diabetes mellitus, benign prostatic hypertrophy, history of atrial fibrillation treated with ablation, lateral hip replacement, laminectomy, cervical discectomy, L5 through S1 discectomy in 1990. Allergies: Coded Allergies: No Known Allergies (Unverified Allergy, Unknown, 09/18/17) Uncoded Allergies: plasma (Allergy, Severe, Anaphylaxis, 04/05/18) Objective . Vital Signs Date Time Temp Pulse Resp B/P (MAP) Pulse Ox O2 Delivery O2 Flow Rate FiO2 04/07/18 20:14 96 21 04/07/18 15:00 76 04/07/18 14:55 98.6 72 18 143/65 (91) 96 04/07/18 11:07 98.5 78 18 146/69 (94) 97 04/07/18 11:00 78 04/07/18 08:20 97 21 04/07/18 07:49 98.5 77 18 129/76 (93) 95 04/07/18 07:00 70 04/07/18 04:00 73 04/07/18 04:00 98.7 76 22 147/74 (98) 94 04/07/18 00:00 79 04/07/18 00:00 98.2 77 20 154/74 (100) 96 04/07/18 04/07/18 04/08/18 15:00 23:00 07:00 Intake Total 1320 ml Output Total 900 ml Balance 420 ml Intake Oral 1320 ml Output Urine Total 900 ml . Laboratory Tests Test 04/06/18 12:12 04/07/18 04:00 White Blood Count 11.1 TH/MM3 7.6 TH/MM3 Red Blood Count 3.83 MIL/MM3 3.46 MIL/MM3 Hemoglobin 11.4 GM/DL 10.4 GM/DL Hematocrit 33.9 % 30.4 % Mean Corpuscular Volume 88.4 FL 87.7 FL Mean Corpuscular Hemoglobin 29.9 PG 29.9 PG Mean Corpuscular Hemoglobin Concent 33.8 % 34.1 % Red Cell Distribution Width 14.0 % 13.9 % Platelet Count 134 TH/MM3 125 TH/MM3 Mean Platelet Volume 7.0 FL 7.1 FL Neutrophils (%) (Auto) 61.7 % Lymphocytes (%) (Auto) 27.9 % Monocytes (%) (Auto) 10.0 % Eosinophils (%) (Auto) 0.0 % Basophils (%) (Auto) 0.4 % Neutrophils # (Auto) 6.8 TH/MM3 Lymphocytes # (Auto) 3.1 TH/MM3 Monocytes # (Auto) 1.1 TH/MM3 Eosinophils # (Auto) 0.0 TH/MM3 Basophils # (Auto) 0.0 TH/MM3 CBC Comment DIFF FINAL Differential Comment Laboratory Tests Test 04/06/18 12:12 04/07/18 04:00 Blood Urea Nitrogen 26 MG/DL 27 MG/DL Creatinine 1.66 MG/DL 1.38 MG/DL Random Glucose 178 MG/DL 130 MG/DL Calcium Level 8.5 MG/DL 8.3 MG/DL Sodium Level 138 MEQ/L 141 MEQ/L Potassium Level 3.3 MEQ/L 3.3 MEQ/L Chloride Level 108 MEQ/L 111 MEQ/L Carbon Dioxide Level 17.9 MEQ/L 17.6 MEQ/L Anion Gap 12 MEQ/L 12 MEQ/L Estimat Glomerular Filtration Rate 42 ML/MIN 52 ML/MIN Magnesium Level 1.9 MG/DL Microbiology Date/Time Source Procedure Growth Status 04/05/18 21:05 Blood Peripheral Aerobic Blood Culture - Preliminary NO GROWTH IN 2 DAYS Resulted 04/05/18 21:05 Blood Peripheral Anaerobic Blood Culture - Preliminary NO GROWTH IN 2 DAYS Resulted 04/05/18 21:00 Blood Peripheral Aerobic Blood Culture - Preliminary NO GROWTH IN 2 DAYS Resulted 04/05/18 21:00 Blood Peripheral Anaerobic Blood Culture - Preliminary NO GROWTH IN 2 DAYS Resulted 04/05/18 18:50 Blood Peripheral Aerobic Blood Culture - Preliminary NO GROWTH IN 2 DAYS Resulted 04/05/18 18:50 Blood Peripheral Anaerobic Blood Culture - Preliminary NO GROWTH IN 2 DAYS Resulted 04/05/18 18:45 Blood Peripheral Aerobic Blood Culture - Preliminary NO GROWTH IN 2 DAYS Resulted 04/05/18 18:45 Blood Peripheral Anaerobic Blood Culture - Preliminary NO GROWTH IN 2 DAYS Resulted 04/06/18 14:30 Stool Stool - Final NO ENTERIC PATHOGENS DETECTED BY PCR... Complete 04/06/18 12:00 Sputum Expectorated Sputum Gram Stain - Final Resulted 04/06/18 12:00 Sputum Expectorated Sputum Sputum Culture - Preliminary HEAVY GROWTH NORMAL RESPIRATORY CARMENCITA... Resulted 04/05/18 21:05 Nasal Washing Influenza Types A,B Antigen (HIMANSHU) - Final NEGATIVE FOR FLU A AND B ANTIGEN.... Complete 04/07/18 14:20 Urine Random Urine Legionella Antigen Pending Received Imaging Last Impressions CT Angiography 04/05/18 1728 Signed Impressions: CONCLUSION: 1. No pulmonary emboli. 2. Right lower lobe infiltrate. 3. Significant coronary artery atherosclerotic calcifications. Chest X-Ray 04/05/18 1658 Signed Impressions: CONCLUSION: Thickened mild atelectasis or consolidation at the medial right lung base. Physical Exam GENERAL: This is a well-developed, moderately obese male who is in no acute distress. HEENT: The head is atraumatic. Extraocular movements grossly intact. Pupils reactive to light. No icterus. Oropharynx: Moist mucosa without lesions. NECK: Supple without adenopathy. LUNGS: Diminished breath sounds throughout. HEART: Regular S1 and S2. No audible murmurs, rubs or gallops. ABDOMEN: Bowel sounds present. Obese, soft, no tenderness appreciated. No mass palpable. RECTAL: Not performed. EXTREMITIES: No clubbing or cyanosis; 3+ edema of the lower extremities. SKIN: No diffuse rash. The patient has tree-bark appearance of the tibias. NEUROLOGIC: No gross focal finding. PSYCHIATRIC: The patient is calm and cooperative. Assessment & Plan Remarks 1. Right lower lobe pneumonia. 2. Immunosuppression. The patient is status post bone marrow transplantation for chronic myelomonocytic leukemia. 3. Fever and chills along with elevated white blood cell count in patient with pneumonia and possibly sepsis in IC patient. 4. Chronic kidney disease. Low platelets ? Vanco ? Cefepime. RECOMMENDATIONS: DC Cefepime IV DC Vanco IV Start Levaquin (covers normal resp carmencita plus legionella). reports he feeds corn to the deer in backyard. Also she reports they had some air duct vents and remodeling done in the house recently. At risk for Legionella. Probiotics started. CXR in am. Stool Cdiff negative. Follow cultures Follow clinically Katheryn Frye MD Apr 07, 2018 21:11
[2018-04-07] MEDS: ENOXAPARIN SODIUM 40 MG/0.4 ML SYRINGE SQ SCH (21:15)
[2018-04-07] MEDS: LEVOFLOXACIN 500 MG TAB PO SCH (21:15)
[2018-04-07] MEDS: LACTOBACILLUS ACIDOPHILUS TAB PO SCH (21:23)
[2018-04-08] VITALS (11 sets, daily range): BP systolic 122–150; BP diastolic 58–70; PULSE 66–89; RESP 18–20; TEMP 98.3–99.4; O2SAT 95–97
[2018-04-08 00:14] LABS: BILIRUBIN, URINE NEG (NEG); BLOOD, URINE MOD (NEG); GLUCOSE,URINE >=500 mg/dL (NEG); HYALINE CAST, URINE 1 /lpf (RARE); KETONE, URINE TRACE mg/dL (NEG); MUCUS URINE FEW /lpf (OCC); NITRITE,URINE NEG (NEG); SQUAMOUS EPITHELIAL CELL URINE <1 /hpf (0-5); URINE COLOR YELLOW (YELLW/STRAW); URINE LEUKOCYTE ESTERASE NEG (NEG)
[2018-04-08] MEDS: TACROLIMUS 0.5 MG CAP PO SCH ×2 (00:20→13:57)
--- NOTE | 2018-04-08 04:05 | RADRPT ---
EXAM DATE: 04/08/2018 3:34 AM EDT AGE/SEX: 68 years / Male INDICATIONS: Shortness of breath, pneumonia. CLINICAL DATA: This is the patient's subsequent encounter. Patient reports that signs and symptoms h ave been present for 3 days and indicates a pain score of 7/10. MEDICAL/SURGICAL HISTORY: Leukemia. Cardiovascular disease. Renal calculi. . Infusaport. COMPARISON: [facility] [place], CHEST SINGLE AP, 04/05/2018. . FINDINGS: A single AP semierect view of the chest was obtained and demonstrates new patchy opacity at the right lung base. The heart size is enlarged with no perihilar edema. The left-sided implantable port martha ter remains in place. The left costophrenic angle was cut off the exam. CONCLUSION: 1. New patchy infiltrate in the right lung base. 2. Cardiomegaly with no perihilar edema. Electronically signed by: Odilon Daniel MD 04/08/2018 4:03 AM EDT
[2018-04-08 05:24] LABS: AUTOMATED NEUTROPHIL # 2.1 TH/MM3 (1.8-7.7); BASOPHIL % 0.5 % (0.0-2.0); EOSINOPHIL # 0.1 TH/MM3 (0-0.4); EOSINOPHIL % 2.6 % (0.0-4.0); HEMATOCRIT 29.1 % (39.0-51.0); LYMPH % 36.6 % (9.0-44.0); LYMPHOCYTE # 1.7 TH/MM3 (1.0-4.8); MEAN CELL VOLUME 87.9 FL (80.0-100.0); MEAN CORPUSCULAR HEMOGLOBIN 30.2 PG (27.0-34.0); MEAN CORPUSCULAR HGB CONC 34.3 % (32.0-36.0); MEAN PLATELET VOLUME 7.1 FL (7.0-11.0); MONO % 14.3 % (0.0-8.0); MONOCYTE # 0.7 TH/MM3 (0-0.9); PLATELET COUNT 119 TH/MM3 (150-450); RED BLOOD COUNT 3.31 MIL/MM3 (4.50-5.90); RED CELL DISTRIBUTION WIDTH 13.9 % (11.6-17.2); WHITE BLOOD COUNT 4.6 TH/MM3 (4.0-11.0)
[2018-04-08 05:46] LABS: BICARBONATE 16.8 MEQ/L (21.0-32.0); CALCIUM 8.1 MG/DL (8.5-10.1); CREATININE 1.42 MG/DL (0.60-1.30)
[2018-04-08] MEDS: DOCUSATE SODIUM 50 MG/SENNA 8.6 MG TAB PO SCH ×2 (07:17→21:05)
[2018-04-08] MEDS: INSULIN ASPART SUPPLEMENTAL SCALE SQ SCH ×4 (08:08→21:03)
[2018-04-08] MEDS: guaiFENesin/CODEINE SYRUP 200 MG/20 MG/10 ML CUP PO PRN ×3 (08:08→22:57)
[2018-04-08] MEDS: LEVOFLOXACIN 500 MG TAB PO SCH (08:08)
[2018-04-08] MEDS: ACYCLOVIR 800 MG TAB PO SCH ×2 (08:09→21:05)
[2018-04-08] MEDS: DILTIAZEM-CD 240 MG CAP ER PO SCH (08:09)
[2018-04-08] MEDS: SIROLIMUS 2 MG TAB PO SCH (08:09)
[2018-04-08] MEDS: CARVEDILOL 12.5 MG TAB PO SCH ×2 (08:09→21:05)
[2018-04-08] MEDS: FINASTERIDE 5 MG TAB PO SCH (08:09)
[2018-04-08] MEDS: ALLOPURINOL 300 MG TAB PO SCH (08:09)
[2018-04-08] MEDS: LACTOBACILLUS ACIDOPHILUS TAB PO SCH ×2 (08:09→21:03)
[2018-04-08] MEDS: SODIUM CHLORIDE 0.9% FLUSH 10 ML FLUSH IV FLUSH SCH ×2 (08:10→21:06)
[2018-04-08] MEDS: ATORVASTATIN 40 MG TAB PO SCH (08:10)
[2018-04-08] MEDS: guaiFENesin E.R. 600 MG TAB PO SCH ×2 (08:10→21:05)
[2018-04-08] MEDS: RESP: ALBUTEROL 2.5 MG/IPRATROPIUM 0.5 MG NEB (SCH) NEB ×3 (08:13→14:20)
--- NOTE | 2018-04-08 09:51 | PD.ONC.PN ---
Subjective Subjective Remarks Afebrile overnight. patient resting in bed in nad. states he feels much better today. continuing to cough up sputum. Objective Data Date Time Temp Pulse Resp B/P (MAP) Pulse Ox O2 Delivery O2 Flow Rate FiO2 04/08/18 07:38 98.3 73 18 150/68 (95) 95 04/08/18 07:00 66 04/08/18 04:00 98.4 69 20 131/68 (89) 95 04/08/18 04:00 67 04/08/18 00:00 99.4 78 20 140/70 (93) 97 04/08/18 00:00 80 04/07/18 20:14 96 21 04/07/18 20:00 76 04/07/18 20:00 99.1 76 20 131/55 (80) 96 04/07/18 15:00 76 04/07/18 14:55 98.6 72 18 143/65 (91) 96 04/07/18 11:07 98.5 78 18 146/69 (94) 97 04/07/18 11:00 78 04/08/18 04/08/18 04/08/18 07:00 15:00 23:00 Intake Total 240 ml Output Total 775 ml Balance -535 ml Result Diagram: 04/08/18 0459 04/08/18 0459 Laboratory Results Laboratory Tests Test 04/07/18 14:20 04/07/18 22:40 04/08/18 04:59 Urine Color YELLOW YELLOW Urine Turbidity CLOUDY HAZY Urine pH 5.0 5.0 Urine Specific Point Clear 1.019 1.015 Urine Protein 100 mg/dL 100 mg/dL Urine Glucose (UA) 50 mg/dL >=500 mg/dL Urine Ketones 20 mg/dL TRACE mg/dL Urine Occult Blood MOD MOD Urine Nitrite NEG NEG Urine Bilirubin NEG NEG Urine Urobilinogen LESS THAN 2 mg/dL LESS THAN 2 mg/dL Urine Leukocyte Esterase NEG NEG Urine RBC 1 /hpf Urine WBC LESS THAN 1 /hpf 1 /hpf Urine Squamous Epithelial Cells <1 /hpf <1 /hpf Urine Amorphous Sediment FEW Urine Bacteria OCC /hpf Urine Hyaline Casts 1 /lpf 1 /lpf Urine Mucus FEW /lpf FEW /lpf Microscopic Urinalysis Comment CULT NOT INDICATED CULT NOT INDICATED White Blood Count 4.6 TH/MM3 Red Blood Count 3.31 MIL/MM3 Hemoglobin 10.0 GM/DL Hematocrit 29.1 % Mean Corpuscular Volume 87.9 FL Mean Corpuscular Hemoglobin 30.2 PG Mean Corpuscular Hemoglobin Concent 34.3 % Red Cell Distribution Width 13.9 % Platelet Count 119 TH/MM3 Mean Platelet Volume 7.1 FL Neutrophils (%) (Auto) 46.0 % Lymphocytes (%) (Auto) 36.6 % Monocytes (%) (Auto) 14.3 % Eosinophils (%) (Auto) 2.6 % Basophils (%) (Auto) 0.5 % Neutrophils # (Auto) 2.1 TH/MM3 Lymphocytes # (Auto) 1.7 TH/MM3 Monocytes # (Auto) 0.7 TH/MM3 Eosinophils # (Auto) 0.1 TH/MM3 Basophils # (Auto) 0.0 TH/MM3 CBC Comment DIFF FINAL Differential Comment Blood Urea Nitrogen 31 MG/DL Creatinine 1.42 MG/DL Random Glucose 182 MG/DL Calcium Level 8.1 MG/DL Magnesium Level 2.0 MG/DL Sodium Level 140 MEQ/L Potassium Level 3.4 MEQ/L Chloride Level 112 MEQ/L Carbon Dioxide Level 16.8 MEQ/L Anion Gap 11 MEQ/L Estimat Glomerular Filtration Rate 50 ML/MIN Culture Results Microbiology Date/Time Source Procedure Growth Status 04/05/18 21:05 Blood Peripheral Aerobic Blood Culture - Preliminary NO GROWTH IN 2 DAYS Resulted 04/05/18 21:05 Blood Peripheral Anaerobic Blood Culture - Preliminary NO GROWTH IN 2 DAYS Resulted 04/05/18 21:00 Blood Peripheral Aerobic Blood Culture - Preliminary NO GROWTH IN 2 DAYS Resulted 04/05/18 21:00 Blood Peripheral Anaerobic Blood Culture - Preliminary NO GROWTH IN 2 DAYS Resulted 04/05/18 18:50 Blood Peripheral Aerobic Blood Culture - Preliminary NO GROWTH IN 2 DAYS Resulted 04/05/18 18:50 Blood Peripheral Anaerobic Blood Culture - Preliminary NO GROWTH IN 2 DAYS Resulted 04/05/18 18:45 Blood Peripheral Aerobic Blood Culture - Preliminary NO GROWTH IN 2 DAYS Resulted 04/05/18 18:45 Blood Peripheral Anaerobic Blood Culture - Preliminary NO GROWTH IN 2 DAYS Resulted 04/06/18 14:30 Stool Stool - Final NO ENTERIC PATHOGENS DETECTED BY PCR... Complete 04/06/18 12:00 Sputum Expectorated Sputum Gram Stain - Final Resulted 04/06/18 12:00 Sputum Expectorated Sputum Sputum Culture - Preliminary HEAVY GROWTH NORMAL RESPIRATORY MIRNA... Resulted 04/05/18 21:05 Nasal Washing Influenza Types A,B Antigen (HIMANSHU) - Final NEGATIVE FOR FLU A AND B ANTIGEN.... Complete 04/07/18 14:20 Urine Random Urine Legionella Antigen - Final PRESUMPTIVE NEGATIVE FOR LEGIONELLA P... Complete Imaging Studies Last 24 hours Impressions Chest X-Ray 04/08/18 0600 Signed Impressions: CONCLUSION: 1. New patchy infiltrate in the right lung base. 2. Cardiomegaly with no perihilar edema. Administered Medications Medications (Trade) Dose Ordered Sig/Warren Route PRN Reason Start Time Stop Time Status Last Admin Dose Admin Sodium Chloride (NS Flush) 2 ml BID IV FLUSH 04/06/18 09:00 04/08/18 08:10 Acetaminophen (Tylenol) 650 mg Q4H PRN PO TEMP > 100.4 04/05/18 22:15 04/06/18 08:29 Enoxaparin Sodium (Lovenox Inj) 40 mg Q24H SQ 04/05/18 22:15 04/07/18 21:15 Albuterol/ Ipratropium (Duoneb Neb) 1 ampule Q4HR NEB PRN NEB SOB/wheezing 04/05/18 22:15 04/07/18 05:22 Insulin Aspart (NovoLOG SUPPLEMENTAL SCALE) 1 ACHS SLIDING SCALE SQ 04/06/18 08:00 04/08/18 08:08 Heparin Sodium (Porcine) (Heparin Central Flush) 250 units UNSCH PRN IV FLUSH SEE PROTOCOL TABLE 04/06/18 06:30 04/06/18 08:30 Albuterol/ Ipratropium (Duoneb Neb) 1 ampule Q6HR WHILE AWAKE NEB NEB 04/06/18 10:00 04/08/18 08:13 Alteplase, Recombinant (Cathflo Activase Inj) 2 mg Q2H PRN INTRACATH clogged port 04/06/18 10:00 04/06/18 17:50 Acyclovir (Zovirax) 800 mg BID PO 04/06/18 13:00 04/08/18 08:09 Allopurinol (Zyloprim) 300 mg DAILY PO 04/07/18 09:00 04/08/18 08:09 Atorvastatin Calcium (Lipitor) 40 mg DAILY PO 04/06/18 13:00 04/08/18 08:10 Carvedilol (Coreg) 25 mg BID PO 04/06/18 12:30 04/08/18 08:09 Diltiazem HCl (Cardizem Cd) 240 mg DAILY PO 04/06/18 13:00 04/08/18 08:09 Finasteride (Proscar) 5 mg DAILY PO 04/07/18 09:00 04/08/18 08:09 Sirolimus (Rapamune) 2 mg DAILY PO 04/06/18 13:00 04/08/18 08:09 Tacrolimus (Prograf) 0.5 mg Q12H PO 04/06/18 13:00 04/08/18 00:20 Temazepam (Restoril) 15 mg HS PRN PO INSOMNIA 04/06/18 21:00 04/07/18 21:58 Guaifenesin/ Codeine Phosphate (Robitussin Ac 200-20 Mg/10 ml Liq) 10 ml Q4H PRN PO cough 04/06/18 13:00 04/08/18 08:08 Guaifenesin (Mucinex Er) 600 mg BID PO 04/06/18 21:00 04/08/18 08:10 Loperamide HCl (Imodium) 2 mg Q6H PRN PO diarrhea 04/06/18 18:00 04/07/18 21:23 Levofloxacin (Levaquin) 500 mg DAILY PO 04/07/18 21:00 04/08/18 08:08 Lactobacillus Acidophilus (Lactinex) 1 tab Q12HR PO 04/07/18 21:15 04/08/18 08:09 Objective Remarks GENERAL: Pleasant middle aged male, upright in chair next to bed with at bedside. SKIN: Warm and dry. no rash. HEAD: Normocephalic. EYES: No injection or drainage. NECK: Supple, trachea midline. CARDIOVASCULAR: Regular rate and rhythm RESPIRATORY: crackles in right lower lobe. otherwise clear. GASTROINTESTINAL: Abdomen soft, non-tender, nondistended. EXTREMITIES: No cyanosis. chronic venous stasis skin changes. NEUROLOGICAL: awake and alert. normal speech. moving extremities. Assessment/Plan Problem List: (1) Pneumonia ICD Codes: J18.9 - Pneumonia, unspecified organism Plan: 04/08: continue PO levaquin, if remains afebrile and stable over next 24 hours could be discharged tomorrow. --on PO Levaquin --CXR showed RLL infiltrate. --on Tacrolimus and Sirolimus (immunosuppression) --BC no growth (2) CMML (chronic myelomonocytic leukemia) ICD Codes: C93.10 - Chronic myelomonocytic leukemia not having achieved remission Plan: s/p transplant in 10/2017 (3) Thrombocytopenia ICD Codes: D69.6 - Thrombocytopenia, unspecified Status: Acute Plan: --likely suppressed d/t infection. monitor. Assessment 68y/o male with CMML in remission admitted with pneumonia. Attending Statement The exam, history, and the medical decision-making described in the above note were completed with the assistance of the mid-level provider. I reviewed and agree with the findings presented. I attest that I had a [id number] encounter with the patient on the same day, and personally performed and documented my assessment and findings in the medical record. Patient feels better. No more fever. Cough has improved. He had Tessalon which has really worked for him. Patient is on oral Levaquin and remains afebrile. If he remains stable overnight that he can be discharged to home tomorrow. Patient has an appointment scheduled at [facility] next month for a repeat bone marrow biopsy. He also has a follow-up appointment with primary oncologist Dr. Franc Mesa after April 18 weekend. Appears stable. Problem Qualifiers (1) CMML (chronic myelomonocytic leukemia): Qualified Codes: C93.11 - Chronic myelomonocytic leukemia, in remission Annabel Mathias Apr 08, 2018 09:51 Jessica Briscoe MD Apr 08, 2018 19:22
[2018-04-08] MEDS ORDERED: VANCOMYCIN INJ 2,000 MG in SODIUM CHLORID 0.9% 500 ML INJ 500 ML IV SCH (11:00)
[2018-04-08] MEDS: hydrOXYzine HCL 25 MG TAB PO PRN ×3 (11:21→22:57)
--- NOTE | 2018-04-08 14:11 | HHI.IDPN ---
Subjective Subjective Remarks CAMILA Guerrero for . This is a 68-year-old white male who has a history of chronic myelomonocytic leukemia. The patient was diagnosed in 09/2010. 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 He was noted to be in remission without evidence of residual disease. The patient started developing cough and fever 3 days ago. He was evaluated at [facility] on 04/04 and was given a dose of cefepime and was requested to follow up with the oncology doctor. He had a temperature of 102.5 degrees on 04/03, and that prompted him to seek evaluation of the fever. When he was seen by his oncologist, he was noted to have redness at the vertex of his head and he was afebrile and his lungs were reported to be clear. Chest x-ray on 04/03 showed no acute abnormalities. The patient notes that he started coughing and he developed chills, soreness of the throat, and the fever persisted, and he was evaluated in the emergency department. He was felt to have cold and flu-like symptoms. The cough became persistent and he had some shortness of breath as well. Chest x-ray was performed and it showed right lower lobe infiltrate. The patient was admitted to the hospital and is currently on vancomycin and cefepime. He is on immunosuppressive medications with tacrolimus and sirolimus. His temperature has been spiking still; the last T-max [id number] last night, and today it was 101.1. He also developed diarrhea after he was started on metronidazole a couple days ago. He continues to have diarrhea. Stool C. difficile toxin is negative. Currently, he is sitting in a chair and he says that his breathing is better and he has less coughing when he is sitting upright. A CT angiogram of the chest was performed and it shows right lower lobe infiltrate. No pulmonary emboli were noted. Sputum culture was ordered; it is pending. The Gram stain showed mixed carmencita and moderate white blood cells. The patient says that he has been coughing up greenish sputum and is bringing up more sputum than in the prior days. His urine output is good. His estimated GFR is 42. He reports that he has chronic renal insufficiency. His white blood cell count was elevated at 15.4 yesterday , and today it is 11.1. The patient states that he feels a little better compared to yesterday. Overnight events reviewed No fevers No rash No diarrhea Plts low. WBC improved. Off neutropenic precautions. Cough improved. Voice hoarse from coughing. reports he feeds corn to the deer in backyard. Also she reports they had some air duct vents and remodeling done in the house recently. At risk for Legionella. Antibiotics Levaquin Lines Lines ok Past Medical History Chronic myelomonocytic leukemia, diabetes mellitus, benign prostatic hypertrophy, history of atrial fibrillation treated with ablation, lateral hip replacement, laminectomy, cervical discectomy, L5 through S1 discectomy in 1990. Allergies: Coded Allergies: No Known Allergies (Unverified Allergy, Unknown, 09/18/17) Uncoded Allergies: plasma (Allergy, Severe, Anaphylaxis, 04/05/18) Objective . Vital Signs Date Time Temp Pulse Resp B/P (MAP) Pulse Ox O2 Delivery O2 Flow Rate FiO2 04/08/18 11:18 98.6 72 18 132/69 (90) 97 04/08/18 11:00 75 04/08/18 07:38 98.3 73 18 150/68 (95) 95 04/08/18 07:00 66 04/08/18 04:00 98.4 69 20 131/68 (89) 95 04/08/18 04:00 67 04/08/18 00:00 99.4 78 20 140/70 (93) 97 04/08/18 00:00 80 04/07/18 20:14 96 21 04/07/18 20:00 76 04/07/18 20:00 99.1 76 20 131/55 (80) 96 04/07/18 15:00 76 04/07/18 14:55 98.6 72 18 143/65 (91) 96 . Laboratory Tests Test 04/07/18 04:00 04/08/18 04:59 White Blood Count 7.6 TH/MM3 4.6 TH/MM3 Red Blood Count 3.46 MIL/MM3 3.31 MIL/MM3 Hemoglobin 10.4 GM/DL 10.0 GM/DL Hematocrit 30.4 % 29.1 % Mean Corpuscular Volume 87.7 FL 87.9 FL Mean Corpuscular Hemoglobin 29.9 PG 30.2 PG Mean Corpuscular Hemoglobin Concent 34.1 % 34.3 % Red Cell Distribution Width 13.9 % 13.9 % Platelet Count 125 TH/MM3 119 TH/MM3 Mean Platelet Volume 7.1 FL 7.1 FL Neutrophils (%) (Auto) 46.0 % Lymphocytes (%) (Auto) 36.6 % Monocytes (%) (Auto) 14.3 % Eosinophils (%) (Auto) 2.6 % Basophils (%) (Auto) 0.5 % Neutrophils # (Auto) 2.1 TH/MM3 Lymphocytes # (Auto) 1.7 TH/MM3 Monocytes # (Auto) 0.7 TH/MM3 Eosinophils # (Auto) 0.1 TH/MM3 Basophils # (Auto) 0.0 TH/MM3 CBC Comment DIFF FINAL Differential Comment Laboratory Tests Test 04/07/18 04:00 04/08/18 04:59 Blood Urea Nitrogen 27 MG/DL 31 MG/DL Creatinine 1.38 MG/DL 1.42 MG/DL Random Glucose 130 MG/DL 182 MG/DL Calcium Level 8.3 MG/DL 8.1 MG/DL Magnesium Level 1.9 MG/DL 2.0 MG/DL Sodium Level 141 MEQ/L 140 MEQ/L Potassium Level 3.3 MEQ/L 3.4 MEQ/L Chloride Level 111 MEQ/L 112 MEQ/L Carbon Dioxide Level 17.6 MEQ/L 16.8 MEQ/L Anion Gap 12 MEQ/L 11 MEQ/L Estimat Glomerular Filtration Rate 52 ML/MIN 50 ML/MIN Microbiology Date/Time Source Procedure Growth Status 04/05/18 21:05 Blood Peripheral Aerobic Blood Culture - Preliminary NO GROWTH IN 3 DAYS Resulted 04/05/18 21:05 Blood Peripheral Anaerobic Blood Culture - Preliminary NO GROWTH IN 3 DAYS Resulted 04/05/18 21:00 Blood Peripheral Aerobic Blood Culture - Preliminary NO GROWTH IN 3 DAYS Resulted 04/05/18 21:00 Blood Peripheral Anaerobic Blood Culture - Preliminary NO GROWTH IN 3 DAYS Resulted 04/05/18 18:50 Blood Peripheral Aerobic Blood Culture - Preliminary NO GROWTH IN 3 DAYS Resulted 04/05/18 18:50 Blood Peripheral Anaerobic Blood Culture - Preliminary NO GROWTH IN 3 DAYS Resulted 04/05/18 18:45 Blood Peripheral Aerobic Blood Culture - Preliminary NO GROWTH IN 3 DAYS Resulted 04/05/18 18:45 Blood Peripheral Anaerobic Blood Culture - Preliminary NO GROWTH IN 3 DAYS Resulted 04/06/18 14:30 Stool Stool - Final NO ENTERIC PATHOGENS DETECTED BY PCR... Complete 04/06/18 12:00 Sputum Expectorated Sputum Gram Stain - Final Complete 04/06/18 12:00 Sputum Expectorated Sputum Sputum Culture - Final HEAVY GROWTH NORMAL RESPIRATORY CARMENCITA Complete 04/05/18 21:05 Nasal Washing Influenza Types A,B Antigen (HIMANSHU) - Final NEGATIVE FOR FLU A AND B ANTIGEN.... Complete 04/07/18 14:20 Urine Random Urine Legionella Antigen - Final PRESUMPTIVE NEGATIVE FOR LEGIONELLA P... Complete Imaging Last Impressions CT Angiography 04/05/18 1728 Signed Impressions: CONCLUSION: 1. No pulmonary emboli. 2. Right lower lobe infiltrate. 3. Significant coronary artery atherosclerotic calcifications. Chest X-Ray 04/05/18 1658 Signed Impressions: CONCLUSION: Thickened mild atelectasis or consolidation at the medial right lung base. Physical Exam GENERAL: This is a well-developed, moderately obese male who is in no acute distress. HEENT: The head is atraumatic. Extraocular movements grossly intact. Pupils reactive to light. No icterus. Oropharynx: Moist mucosa without lesions. NECK: Supple without adenopathy. LUNGS: Diminished breath sounds throughout. HEART: Regular S1 and S2. No audible murmurs, rubs or gallops. ABDOMEN: Bowel sounds present. Obese, soft, no tenderness appreciated. No mass palpable. RECTAL: Not performed. EXTREMITIES: No clubbing or cyanosis; 3+ edema of the lower extremities. SKIN: No diffuse rash. The patient has tree-bark appearance of the tibias. NEUROLOGIC: No gross focal finding. PSYCHIATRIC: The patient is calm and cooperative. Assessment & Plan Remarks 1. Right lower lobe pneumonia. 2. Immunosuppression. The patient is status post bone marrow transplantation for chronic myelomonocytic leukemia. 3. Fever and chills along with elevated white blood cell count in patient with pneumonia and possibly sepsis in IC patient. 4. Chronic kidney disease. Low platelets ? Vanco ? Cefepime. RECOMMENDATIONS: Continue oral Levaquin (covers normal resp carmencita plus legionella). reports he feeds corn to the deer in backyard. Consider fungal etc workup if resp symptoms persist or worsen. Also she reports they had some air duct vents and remodeling done in the house recently. At risk for Legionella. Probiotics started. Clinically feels better but CXR still lagging behind. Stool Cdiff negative. Follow cultures Follow clinically to resume care in am. Katheryn Frye MD Apr 08, 2018 14:11
--- NOTE | 2018-04-08 15:12 | MB ---
cc: Gerardo Briscoe MD DATE: 04/06/2018 REASON FOR CONSULTATION: Consult requested by hospitalist for evaluation of pneumonia in a patient who is on immunosuppressive medication for allogenic bone marrow transplant for chronic myelomonocytic leukemia. HISTORY OF PRESENT ILLNESS: Eleuterio is a pleasant 68-year-old male. He is under the care of my associate, Dr. Franc Mesa. The patient was diagnosed with chronic myelomonocytic leukemia in 09/2016. He was initially treated with 4 cycles of Dacogen, and he was referred to [facility] for evaluation of allogenic bone marrow transplant. On 10/23/2017, he underwent allogenic peripheral stem cell transplant, matched unrelated donor. The patient has done well and he went into remission. 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 The patient had developed a fever and cough this past Monday. He went to the emergency room on Monday. The chest x-ray was negative. The blood cultures were done and he had received cefepime. He was discharged to home. The very next day on Monday, patient was evaluated by Dr. Oh. The patient had developed a rash on his face and also had diarrhea. It was thought the patient may have developed a folliculitis and possible C. difficile. He was given Flagyl. However, patient continues to do poorly. He had cough and shortness of breath, and fever was going up and down. He decided to come back to the emergency room. He had a chest x-ray, which showed thickened, mild atelectasis or consolidation in the medial right lung base. The CT angiogram of the chest did not show any pulmonary embolism, but there is a right lower lobe infiltrate noted. The patient is now admitted to the hospital for pneumonia. Infectious disease had been consulted for antibiotic management. I have been asked to see the patient for followup of his leukemia diagnosis. The patient has been complaining of cough, shortness of breath. He states that his cough is loosening up and he is able to break up some phlegm. He has low-grade fever. The stool for C. difficile came back negative. He does not require any isolation. The blood cultures so far are negative. The sputum culture is still pending. The rest of the review of systems is negative. PAST MEDICAL HISTORY: Anemia, atrial fibrillation, arthritis, chronic renal failure, coronary artery disease, hemorrhoids, hypertension, nephrolithiasis, COPD, chronic myelomonocytic leukemia. PAST SURGICAL HISTORY: Hip replacement, ureteral stent placement, coronary artery stent, basal cell cancer surgery, cystoscopies and upper endoscopy. ALLERGIES: NONE. MEDICATIONS: Acyclovir, allopurinol, atorvastatin, carvedilol, Dilacor, finasteride, Humalog, Lortab, hydroxyzine, Restoril, sirolimus, Bactrim for PCP prophylaxis, tacrolimus, temazepam, tramadol, Ventolin, vitamin D. FAMILY HISTORY: None for malignancy. SOCIAL HISTORY: The patient does not smoke cigarettes and occasionally drinks alcohol. He is a retired respiratory therapist. PHYSICAL EXAMINATION: GENERAL: A well-developed, well-nourished white male, in no apparent distress. VITAL SIGNS: Temperature 99.9, heart rate is 83, blood pressure 139/69, O2 saturations 94%. HEENT: PERRLA. EOMI. Anicteric. No oral lesions are noted. NECK: No lymphadenopathy noted. LUNGS: Clear. No wheezing, rhonchi or rales. HEART: Regular rate and rhythm. ABDOMEN: Soft, nontender. No hepatosplenomegaly. EXTREMITIES: No pedal edema. NEUROLOGIC: Awake, alert, oriented x3. SKIN: No significant lesions noted. ASSESSMENT: 1. Right lower lobe pneumonia in an immunosuppressed patient as he is on immunosuppressive medication for matched unrelated peripheral stem cell transplant. 2. Chronic myelomonocytic leukemia, status post peripheral stem cell transplant matched unrelated in 10/2017. 3. 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 4. Mild diarrhea, which could be due to the antibiotic. I doubt that he has a gastrointestinal graft versus host disease. 5. Chronic renal insufficiency. PLAN: I have reviewed his available records, and I had an extensive discussion with the patient and his , who is a charge nurse for radiation oncology. The patient started feeling better since he has been in the hospital with IV antibiotics. He is on vancomycin, renal dose adjusted, and cefepime, also renal dose adjusted. Infectious disease has been consulted and they will monitor his antibiotic given that he has chronic renal failure. He is also on prophylactic acyclovir and Bactrim for PCP prophylaxis. He is currently on sirolimus and tacrolimus for prevention of graft versus host disease. I will also start him on Mucinex to help him expectorate the sputum. He says that his sputum is not loosening up. The sputum cultures are still pending. The blood cultures are negative so far. My recommendation is to continue to monitor him closely as he is at a higher risk to go into sepsis. Thank you for asking my opinion. MD MANSI Hull/JODY , 05:24 PM , 07:50 PM
[2018-04-08] MEDS ORDERED: POTASSIUM CHLORIDE 20 MEQ CONTROLLED RELEASE TAB PO ONE (15:30)
[2018-04-08] MEDS: BENZONATATE 100 MG CAP PO PRN (15:31)
--- NOTE | 2018-04-08 16:18 | HHI.PR ---
Subjective Remarks The patient was resting and said that he felt better than he has in a while. He says the diarrhea is pretty much gone. He says he is still coughing up a lot of mucus. He says the Robitussin has been helpful. Discussed with family and nursing at the bedside. Objective Vitals Vital Signs Date Time Temp Pulse Resp B/P (MAP) Pulse Ox O2 Delivery O2 Flow Rate FiO2 04/08/18 15:18 98.9 69 18 124/58 (80) 97 04/08/18 15:00 69 04/08/18 11:18 98.6 72 18 132/69 (90) 97 04/08/18 11:00 75 04/08/18 07:38 98.3 73 18 150/68 (95) 95 04/08/18 07:00 66 04/08/18 04:00 98.4 69 20 131/68 (89) 95 04/08/18 04:00 67 04/08/18 00:00 99.4 78 20 140/70 (93) 97 04/08/18 00:00 80 04/07/18 20:14 96 21 04/07/18 20:00 76 04/07/18 20:00 99.1 76 20 131/55 (80) 96 I/O 04/07/18 04/07/18 04/07/18 04/08/18 04/08/18 04/08/18 07:00 15:00 23:00 07:00 15:00 23:00 Intake Total 250 ml 1320 ml 240 ml Output Total 600 ml 900 ml 775 ml Balance -350 ml 420 ml -535 ml Intake Oral 250 ml 1320 ml 240 ml Output Urine Total 600 ml 900 ml 775 ml Result Diagram: 04/08/18 0459 04/08/18 0459 Imaging Last Impressions Chest X-Ray 04/08/18 0600 Signed Impressions: CONCLUSION: 1. New patchy infiltrate in the right lung base. 2. Cardiomegaly with no perihilar edema. CT Angiography 04/05/18 8548 Signed Impressions: CONCLUSION: 1. No pulmonary emboli. 2. Right lower lobe infiltrate. 3. Significant coronary artery atherosclerotic calcifications. Objective Remarks GENERAL: NAD. SKIN: No rashes, ecchymoses or lesions. Cool and dry. HEAD: Atraumatic. Normocephalic. No temporal or scalp tenderness. EYES: Pupils equal round and reactive. Extraocular motions intact. No scleral icterus. No injection or drainage. ENT: Nose without bleeding, purulent drainage or septal hematoma. Throat without erythema, tonsillar hypertrophy or exudate. Uvula midline. Airway patent. NECK: Trachea midline. No JVD or lymphadenopathy. Supple, nontender, no meningeal signs. CARDIOVASCULAR: Regular rate and rhythm without murmurs, gallops, or rubs. RESPIRATORY: Coarse breath sounds, wheezing. GASTROINTESTINAL: Abdomen soft, non-tender, nondistended. No hepato-splenomegaly , or palpable masses. No guarding. MUSCULOSKELETAL: Extremities with 1-2+ edema. NEUROLOGICAL: Awake and alert. Cranial nerves II through XII intact. Motor and sensory grossly within normal limits. Normal speech. A/P Assessment and Plan Pneumonia in immunocompromised patient/ Fever/ Sepsis CTA significant for right lower lobe infiltrate. Also has watery diarrhea. Patient with leukocytosis and tachycardia. Oncology and ID consults appreciated. C diff negative. UA negative for infection. - Blood cultures NGTD. - Levaquin per ID. - Robitussin AC and Tessalon Perles as needed. 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 - Medical oncology following. - Continue immunosuppression. Sirolimus level pending. Diabetes mellitus Relatively well controlled. - Sliding-scale insulin. HTN Well controlled. - resume home meds. - clonidine as needed. Atrial fibrillation Rate controlled at this time. - Continue Coreg and diltiazem. Chronic kidney disease/ Hypokalemia Creatinine improving. - Monitor renal function and avoid nephrotoxins. - KCl repleted. PPx: Odilon Chung DO Apr 08, 2018 16:18
[2018-04-08] MEDS: RESP: ALBUTEROL 2.5 MG/IPRATROPIUM 0.5 MG NEB (PRN) NEB (19:34)
[2018-04-08] MEDS: ENOXAPARIN SODIUM 40 MG/0.4 ML SYRINGE SQ SCH (21:09)
[2018-04-09] VITALS (11 sets, daily range): BP systolic 142–146; BP diastolic 67–78; PULSE 62–82; RESP 16–20; TEMP 97.8–99.2; O2SAT 96–98
[2018-04-09] MEDS: TACROLIMUS 0.5 MG CAP PO SCH ×2 (00:21→11:53)
[2018-04-09] MEDS: BENZONATATE 100 MG CAP PO PRN ×2 (00:21→08:15)
[2018-04-09 05:04] LABS: AUTOMATED NEUTROPHIL # 1.9 TH/MM3 (1.8-7.7); BASOPHIL % 0.4 % (0.0-2.0); EOSINOPHIL # 0.1 TH/MM3 (0-0.4); EOSINOPHIL % 2.3 % (0.0-4.0); HEMATOCRIT 28.6 % (39.0-51.0); HEMOGLOBIN 9.8 GM/DL (13.0-17.0); LYMPH % 45.7 % (9.0-44.0); LYMPHOCYTE # 2.3 TH/MM3 (1.0-4.8); MEAN CELL VOLUME 87.4 FL (80.0-100.0); MEAN CORPUSCULAR HGB CONC 34.3 % (32.0-36.0); MEAN PLATELET VOLUME 7.2 FL (7.0-11.0); MONO % 13.6 % (0.0-8.0); MONOCYTE # 0.7 TH/MM3 (0-0.9); PLATELET COUNT 129 TH/MM3 (150-450); RED BLOOD COUNT 3.27 MIL/MM3 (4.50-5.90); RED CELL DISTRIBUTION WIDTH 13.8 % (11.6-17.2); WHITE BLOOD COUNT 4.9 TH/MM3 (4.0-11.0)
[2018-04-09 05:24] LABS: BICARBONATE 17.8 MEQ/L (21.0-32.0); CALCIUM 8.3 MG/DL (8.5-10.1); CREATININE 1.47 MG/DL (0.60-1.30)
[2018-04-09] MEDS: RESP: ALBUTEROL 2.5 MG/IPRATROPIUM 0.5 MG NEB (SCH) NEB ×2 (07:41→12:38)
[2018-04-09] MEDS: FINASTERIDE 5 MG TAB PO SCH (08:16)
[2018-04-09] MEDS: ATORVASTATIN 40 MG TAB PO SCH (08:16)
[2018-04-09] MEDS: LACTOBACILLUS ACIDOPHILUS TAB PO SCH (08:16)
[2018-04-09] MEDS: ALLOPURINOL 300 MG TAB PO SCH (08:16)
[2018-04-09] MEDS: CARVEDILOL 12.5 MG TAB PO SCH (08:16)
[2018-04-09] MEDS: LEVOFLOXACIN 500 MG TAB PO SCH (08:16)
[2018-04-09] MEDS: DOCUSATE SODIUM 50 MG/SENNA 8.6 MG TAB PO SCH (08:16)
[2018-04-09] MEDS: guaiFENesin E.R. 600 MG TAB PO SCH (08:16)
[2018-04-09] MEDS: INSULIN ASPART SUPPLEMENTAL SCALE SQ SCH ×2 (08:21→12:33)
[2018-04-09] MEDS: hydrOXYzine HCL 25 MG TAB PO PRN (08:26)
--- NOTE | 2018-04-09 09:12 | PD.ONC.PN ---
Subjective Subjective Remarks Afebrile Patient reports overall he is feeling better Still hoarse Has not noticed that he has right arm swelling before now Objective Data Date Time Temp Pulse Resp B/P (MAP) Pulse Ox O2 Delivery O2 Flow Rate FiO2 04/09/18 07:41 98 21 04/09/18 07:15 98.0 73 18 143/78 (99) 96 04/09/18 04:15 98.0 70 16 142/67 (92) 97 04/09/18 04:03 62 04/09/18 00:18 99.2 73 18 146/68 (94) 97 04/09/18 00:06 71 04/08/18 20:01 89 04/08/18 19:40 97 Nasal Cannula 21 04/08/18 19:16 99.2 70 18 122/62 (82) 96 04/08/18 15:18 98.9 69 18 124/58 (80) 97 04/08/18 15:00 69 04/08/18 11:18 98.6 72 18 132/69 (90) 97 04/08/18 11:00 75 04/09/18 04/09/18 04/09/18 06:59 14:59 22:59 Intake Total 360 ml Output Total 700 ml Balance -340 ml Result Diagram: 04/09/18 0420 04/09/18 0420 Laboratory Results Laboratory Tests Test 04/09/18 04:20 White Blood Count 4.9 TH/MM3 Red Blood Count 3.27 MIL/MM3 Hemoglobin 9.8 GM/DL Hematocrit 28.6 % Mean Corpuscular Volume 87.4 FL Mean Corpuscular Hemoglobin 30.0 PG Mean Corpuscular Hemoglobin Concent 34.3 % Red Cell Distribution Width 13.8 % Platelet Count 129 TH/MM3 Mean Platelet Volume 7.2 FL Neutrophils (%) (Auto) 38.0 % Lymphocytes (%) (Auto) 45.7 % Monocytes (%) (Auto) 13.6 % Eosinophils (%) (Auto) 2.3 % Basophils (%) (Auto) 0.4 % Neutrophils # (Auto) 1.9 TH/MM3 Lymphocytes # (Auto) 2.3 TH/MM3 Monocytes # (Auto) 0.7 TH/MM3 Eosinophils # (Auto) 0.1 TH/MM3 Basophils # (Auto) 0.0 TH/MM3 CBC Comment DIFF FINAL Differential Comment Blood Urea Nitrogen 28 MG/DL Creatinine 1.47 MG/DL Random Glucose 164 MG/DL Calcium Level 8.3 MG/DL Magnesium Level 2.0 MG/DL Sodium Level 138 MEQ/L Potassium Level 3.5 MEQ/L Chloride Level 109 MEQ/L Carbon Dioxide Level 17.8 MEQ/L Anion Gap 11 MEQ/L Estimat Glomerular Filtration Rate 48 ML/MIN Culture Results Microbiology Date/Time Source Procedure Growth Status 04/06/18 14:30 Stool Stool - Final NO ENTERIC PATHOGENS DETECTED BY PCR... Complete 04/06/18 12:00 Sputum Expectorated Sputum Gram Stain - Final Complete 04/06/18 12:00 Sputum Expectorated Sputum Sputum Culture - Final HEAVY GROWTH NORMAL RESPIRATORY MIRNA Complete 04/07/18 14:20 Urine Random Urine Legionella Antigen - Final PRESUMPTIVE NEGATIVE FOR LEGIONELLA P... Complete Administered Medications Medications (Trade) Dose Ordered Sig/Warren Route PRN Reason Start Time Stop Time Status Last Admin Dose Admin Sodium Chloride (NS Flush) 2 ml BID IV FLUSH 04/06/18 09:00 04/08/18 21:06 Acetaminophen (Tylenol) 650 mg Q4H PRN PO TEMP > 100.4 04/05/18 22:15 04/06/18 08:29 Enoxaparin Sodium (Lovenox Inj) 40 mg Q24H SQ 04/05/18 22:15 04/08/18 21:09 Senna/Docusate Sodium (Alpa-Colace) 1 tab BID PO 04/06/18 09:00 04/09/18 08:16 Albuterol/ Ipratropium (Duoneb Neb) 1 ampule Q4HR NEB PRN NEB SOB/wheezing 04/05/18 22:15 04/08/18 19:34 Insulin Aspart (NovoLOG SUPPLEMENTAL SCALE) 1 ACHS SLIDING SCALE SQ 04/06/18 08:00 04/09/18 08:21 Sodium Chloride (NS Flush) 5 ml UNSCH PRN IV FLUSH SEE PROTOCOL TABLE 04/06/18 06:30 04/09/18 04:20 Heparin Sodium (Porcine) (Heparin Central Flush) 250 units UNSCH PRN IV FLUSH SEE PROTOCOL TABLE 04/06/18 06:30 04/09/18 04:21 Albuterol/ Ipratropium (Duoneb Neb) 1 ampule Q6HR WHILE AWAKE NEB NEB 04/06/18 10:00 04/09/18 07:41 Alteplase, Recombinant (Cathflo Activase Inj) 2 mg Q2H PRN INTRACATH clogged port 04/06/18 10:00 04/06/18 17:50 Acyclovir (Zovirax) 800 mg BID PO 04/06/18 13:00 04/08/18 21:05 Allopurinol (Zyloprim) 300 mg DAILY PO 04/07/18 09:00 04/09/18 08:16 Atorvastatin Calcium (Lipitor) 40 mg DAILY PO 04/06/18 13:00 04/09/18 08:16 Carvedilol (Coreg) 25 mg BID PO 04/06/18 12:30 04/09/18 08:16 Diltiazem HCl (Cardizem Cd) 240 mg DAILY PO 04/06/18 13:00 04/08/18 08:09 Finasteride (Proscar) 5 mg DAILY PO 04/07/18 09:00 04/09/18 08:16 Sirolimus (Rapamune) 2 mg DAILY PO 04/06/18 13:00 04/08/18 08:09 Tacrolimus (Prograf) 0.5 mg Q12H PO 04/06/18 13:00 04/09/18 00:21 Temazepam (Restoril) 15 mg HS PRN PO INSOMNIA 04/06/18 21:00 04/07/18 21:58 Guaifenesin/ Codeine Phosphate (Robitussin Ac 200-20 Mg/10 ml Liq) 10 ml Q4H PRN PO cough 04/06/18 13:00 04/08/18 22:57 Guaifenesin (Mucinex Er) 600 mg BID PO 04/06/18 21:00 04/09/18 08:16 Loperamide HCl (Imodium) 2 mg Q6H PRN PO diarrhea 04/06/18 18:00 04/07/18 21:23 Benzonatate (Tessalon) 200 mg TID PRN PO breakthrough cough 04/07/18 13:45 04/09/18 08:15 Levofloxacin (Levaquin) 500 mg DAILY PO 04/07/18 21:00 04/09/18 08:16 Lactobacillus Acidophilus (Lactinex) 1 tab Q12HR PO 04/07/18 21:15 04/09/18 08:16 Hydroxyzine HCl (Atarax) 25 mg Q6H PRN PO itching 04/08/18 11:00 04/09/18 08:26 Objective Remarks GENERAL: Pleasant middle aged male sitting up in chair at bedside no obvious distress SKIN: Warm and dry. Very subtle rash to scalp HEAD: Normocephalic. EYES: No injection or drainage. NECK: Supple, trachea midline. CARDIOVASCULAR: Regular rate and rhythm RESPIRATORY: Clear but diminished in bases. On room air. Breathing unlabored at rest. GASTROINTESTINAL: Abdomen soft, non-tender, nondistended. EXTREMITIES: No cyanosis. chronic venous stasis skin changes. Noted edema to right upper extremity NEUROLOGICAL: No obvious focal deficit. Awake and alert. Moving all extremities. Assessment/Plan Problem List: (1) Pneumonia ICD Codes: J18.9 - Pneumonia, unspecified organism Plan: 04/09: Obtain ultrasound of right upper extremity. If negative for DVT patient will be clear for discharge. Continue Levaquin. --on PO Levaquin --CXR showed RLL infiltrate. --on Tacrolimus and Sirolimus (immunosuppression) --BC no growth (2) CMML (chronic myelomonocytic leukemia) ICD Codes: C93.10 - Chronic myelomonocytic leukemia not having achieved remission Plan: s/p transplant in 10/2017 (3) Thrombocytopenia ICD Codes: D69.6 - Thrombocytopenia, unspecified Status: Acute Plan: --likely suppressed d/t infection. monitor. Assessment 68y/o male with CMML in remission admitted with pneumonia. Attending Statement The exam, history, and the medical decision-making described in the above note were completed with the assistance of the mid-level provider. I reviewed and agree with the findings presented. I attest that I had a [id number] encounter with the patient on the same day, and personally performed and documented my assessment and findings in the medical record. c/o swelling RUE Cough is better. No fever US RUE for DVT , if negative then ok to d/c Problem Qualifiers (1) CMML (chronic myelomonocytic leukemia): Qualified Codes: C93.11 - Chronic myelomonocytic leukemia, in remission Zaida Mac Apr 09, 2018 09:12 Jessica Briscoe MD Apr 09, 2018 17:59
[2018-04-09] MEDS: ACYCLOVIR 800 MG TAB PO SCH (09:36)
[2018-04-09] MEDS: SODIUM CHLORIDE 0.9% FLUSH 10 ML FLUSH IV FLUSH SCH (09:36)
[2018-04-09] MEDS: DILTIAZEM-CD 240 MG CAP ER PO SCH (09:36)
[2018-04-09] MEDS: SIROLIMUS 2 MG TAB PO SCH (09:36)
[2018-04-09] MEDS ORDERED: PHARMACY ORDERED LAB ONE (10:45)
[2018-04-09] MEDS ORDERED: hydrOXYzine HCL 50 MG TAB PO PRN (12:00)
[2018-04-09] MEDS ORDERED: hydrOXYzine HCL 25 MG TAB PO ONE (12:00)
--- NOTE | 2018-04-09 15:14 | RADRPT ---
EXAM DATE: 04/09/2018 3:11 PM EDT AGE/SEX: 68 years / Male INDICATIONS: Right arm swelling. CLINICAL DATA: This is the patient's initial encounter. Patient reports that signs and symptoms have been present for 3 days and indicates a pain score of 0/10. MEDICAL/SURGICAL HISTORY: Hypercholesterolemia. Gastroesophageal reflux disease. Diabetes. C oronary artery disease. Atrial fibrillation. Sleep apnea. Kidney stones. History of chemotherapy. Chr onic Myelomonocytic Leukemia. Blood transfusion. Immunosuppression. Chronic kidney disease. Tonsille ctomy. Cardiac ablation. Cardiac catheterization. Vasectomy. Discectomy L5-S1. Bilateral hip replace ments. Bone marrow transplant. Ureteral stent placement. COMPARISON: No prior exams available for comparison. FINDINGS: The vessels are compressible and augmentation response is documented. No filling defects a re seen. The flow is phasic with respiration. Other: None. CONCLUSION: 1. No sonographic evidence for right upper extremity DVT. Electronically signed by: Abdias Batista MD 04/09/2018 3:12 PM EDT
--- NOTE | 2018-04-09 15:15 | HHI.PR ---
Subjective Remarks The patient was complaining of right arm swelling. He said he previously had an IV there. Otherwise he was anxious to leave. Family at the bedside. Discussed with nursing. Objective Vitals Vital Signs Date Time Temp Pulse Resp B/P (MAP) Pulse Ox O2 Delivery O2 Flow Rate FiO2 04/09/18 14:22 82 04/09/18 12:00 76 04/09/18 11:48 97.8 72 20 144/73 (96) 96 04/09/18 09:21 71 04/09/18 08:00 73 04/09/18 07:41 98 21 04/09/18 07:15 98.0 73 18 143/78 (99) 96 04/09/18 04:15 98.0 70 16 142/67 (92) 97 04/09/18 04:03 62 04/09/18 00:18 99.2 73 18 146/68 (94) 97 04/09/18 00:06 71 04/08/18 20:01 89 04/08/18 19:40 97 Nasal Cannula 21 04/08/18 19:16 99.2 70 18 122/62 (82) 96 04/08/18 15:18 98.9 69 18 124/58 (80) 97 I/O 04/08/18 04/08/18 04/08/18 04/09/18 04/09/18 04/09/18 06:59 14:59 22:59 06:59 14:59 22:59 Intake Total 240 ml 720 ml 360 ml Output Total 775 ml 800 ml 700 ml Balance -535 ml -80 ml -340 ml Intake Oral 240 ml 720 ml 360 ml Output Urine Total 775 ml 800 ml 700 ml # Bowel Movements 0 Result Diagram: 04/09/18 0420 04/09/18 0420 Imaging Last Impressions Chest X-Ray 04/08/18 0600 Signed Impressions: CONCLUSION: 1. New patchy infiltrate in the right lung base. 2. Cardiomegaly with no perihilar edema. CT Angiography 04/05/18 1728 Signed Impressions: CONCLUSION: 1. No pulmonary emboli. 2. Right lower lobe infiltrate. 3. Significant coronary artery atherosclerotic calcifications. Objective Remarks GENERAL: NAD. SKIN: No rashes, ecchymoses or lesions. Cool and dry. HEAD: Atraumatic. Normocephalic. No temporal or scalp tenderness. EYES: Pupils equal round and reactive. Extraocular motions intact. No scleral icterus. No injection or drainage. ENT: Nose without bleeding, purulent drainage or septal hematoma. Throat without erythema, tonsillar hypertrophy or exudate. Uvula midline. Airway patent. NECK: Trachea midline. No JVD or lymphadenopathy. Supple, nontender, no meningeal signs. CARDIOVASCULAR: Regular rate and rhythm without murmurs, gallops, or rubs. RESPIRATORY: Coarse breath sounds, wheezing. GASTROINTESTINAL: Abdomen soft, non-tender, nondistended. No hepato-splenomegaly , or palpable masses. No guarding. MUSCULOSKELETAL: Extremities with 1-2+ edema. Right upper extremity with edema as well. NEUROLOGICAL: Awake and alert. Cranial nerves II through XII intact. Motor and sensory grossly within normal limits. Normal speech. A/P Assessment and Plan Pneumonia in immunocompromised patient/ Fever/ Sepsis CTA significant for right lower lobe infiltrate. Also has watery diarrhea. Patient with leukocytosis and tachycardia. Oncology and ID consults appreciated. C diff negative. UA negative for infection. - Blood cultures NGTD. - Levaquin per ID. Will d/c on 10 day course if able to discharge today. - Robitussin AC and Tessalon Perles as needed. 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 - Medical oncology following. - Continue immunosuppression. Sirolimus level pending. RUE swelling New onset. - Duplex US pending. Diabetes mellitus Relatively well controlled. - Sliding-scale insulin. HTN Well controlled. - resume home meds. - clonidine as needed. Atrial fibrillation Rate controlled at this time. - Continue Coreg and diltiazem. Chronic kidney disease/ Hypokalemia Creatinine improving. At baseline. - Monitor renal function and avoid nephrotoxins. - KCl repleted. Lower extremity edema Likely exacerbated by CKD. - add LANA stockings. PPx: Lovenox Discharge Planning Await US, d/c if Odilon Corcoran DO Apr 09, 2018 15:15
[2018-04-09] MEDS ORDERED: LEVA500T33 PO (15:19)
[2018-04-09] MEDS ORDERED: BENZ100 PO (15:19)
[2018-04-09] MEDS ORDERED: LACT PO (15:19)
--- NOTE | 2018-04-09 15:20 | HHI.DCPOC ---
Discharge Care Plan Diagnosis: (1) Chronic renal disease (2) Thrombocytopenia (3) CMML (chronic myelomonocytic leukemia) (4) Pneumonia (5) Fever (6) Anemia Goals to Promote Your Health * To prevent worsening of your condition and complications * To maintain your health at the optimal level Directions to Meet Your Goals Take your medications as prescribed Follow your dietary instruction Follow activity as directed Keep your appointments as scheduled Take your immunizations and boosters as scheduled If your symptoms worsen call your PCP, if no PCP go to Urgent Care Center or Emergency Room Smoking is Dangerous to Your Health. Avoid second hand smoke Call the 24-hour hour crisis hotline for domestic abuse at Odilon Chambers DO Apr 09, 2018 15:20
--- NOTE | 2018-04-09 15:23 | HHI.IDPN ---
Note Infectious Disease Note Patient says he feels better. He was noted to have swelling of the right upper extremity. Ultrasound of the right upper extremity has no evidence of deep venous thrombosis. Positive hoarseness. Denies chills. Afebrile. Denies sweats. Chest x-ray shows a right lower lobe infiltrate. Admitted with cough and fever 3 days ago. He was evaluated at [facility] on 04/04 and was given a dose of cefepime and was requested to follow up with the oncology doctor. He had a temperature of 102.5 degrees on 04/03, and that prompted him to seek evaluation of the fever. When he was seen by his oncologist, he was noted to have redness at the vertex of his head and he was afebrile and his lungs were reported to be clear. Chest x-ray on 04/03 showed no acute abnormalities. The patient notes that he started coughing and he developed chills, soreness of the throat, and the fever persisted, and he was evaluated in the emergency department. He was felt to have cold and flu-like symptoms. The cough became persistent and he had some shortness of breath as well. Chest x-ray was performed and it showed right lower lobe infiltrate. He is on immunosuppressive medications with tacrolimus and sirolimus. PAST MEDICAL HISTORY: Chronic myelomonocytic leukemia, diabetes mellitus, benign prostatic hypertrophy, history of atrial fibrillation treated with ablation, lateral hip replacement, laminectomy, cervical discectomy, L5 through S1 discectomy in 1990. ALLERGIES: NO KNOWN DRUG ALLERGIES. MEDICATIONS: Medications (Trade) Dose Ordered Sig/Warren Route PRN Reason Start Time Stop Time Status Last Admin Dose Admin Sodium Chloride (NS Flush) 2 ml UNSCH PRN IV FLUSH FLUSH AFTER USING IV ACCESS 04/05/18 22:15 Sodium Chloride (NS Flush) 2 ml BID IV FLUSH 04/06/18 09:00 04/09/18 09:36 Acetaminophen (Tylenol) 650 mg Q4H PRN PO TEMP > 100.4 04/05/18 22:15 04/06/18 08:29 Ondansetron HCl (Zofran Odt) 4 mg Q6H PRN PO NAUSEA OR VOMITING 04/05/18 22:15 Enoxaparin Sodium (Lovenox Inj) 40 mg Q24H SQ 04/05/18 22:15 04/08/18 21:09 Naloxone HCl (Narcan Inj) 0.4 mg UNSCH PRN IV PUSH SEE LABEL COMMENTS 04/05/18 22:15 Senna/Docusate Sodium (Alpa-Colace) 1 tab BID PO 04/06/18 09:00 04/09/18 08:16 Magnesium Hydroxide (Milk Of Magnesia Liq) 30 ml Q12H PRN PO Mild constipation 04/05/18 22:15 Sennosides (Senokot) 17.2 mg Q12H PRN PO Moderate constipation 04/05/18 22:15 Bisacodyl (Dulcolax Supp) 10 mg DAILY PRN RECTAL SEVERE CONSITIPATION 04/05/18 22:15 Lactulose (Lactulose Liq) 30 ml DAILY PRN PO SEVERE CONSITIPATION 04/05/18 22:15 Albuterol/ Ipratropium (Duoneb Neb) 1 ampule Q4HR NEB PRN NEB SOB/wheezing 04/05/18 22:15 04/08/18 19:34 Dextrose (D50w (Vial) Inj) 50 ml UNSCH PRN IV PUSH HYPOGLYCEMIA-SEE COMMENTS 04/05/18 22:30 Glucagon (Glucagon Inj) 1 mg UNSCH PRN OTHER HYPOGLYCEMIA-SEE COMMENTS 04/05/18 22:30 Insulin Aspart (NovoLOG SUPPLEMENTAL SCALE) 1 ACHS SLIDING SCALE SQ 04/06/18 08:00 04/09/18 12:33 Sodium Chloride (NS Flush) 5 ml UNSCH PRN IV FLUSH SEE PROTOCOL TABLE 04/06/18 06:30 04/09/18 04:20 Heparin Sodium (Porcine) (Heparin Central Flush) 250 units UNSCH PRN IV FLUSH SEE PROTOCOL TABLE 04/06/18 06:30 04/09/18 04:21 Heparin Sodium (Porcine) (Heparin Central Flush) 500 units UNSCH IV FLUSH 04/06/18 06:30 Phenol (Chloraseptic [place]utton) 2 spray Q2H PRN OROPHARYNG sore throat 04/06/18 09:30 Alteplase, Recombinant (Cathflo Activase Inj) 2 mg Q2H PRN INTRACATH clogged port 04/06/18 10:00 04/06/18 17:50 Acyclovir (Zovirax) 800 mg BID PO 04/06/18 13:00 04/09/18 09:36 Allopurinol (Zyloprim) 300 mg DAILY PO 04/07/18 09:00 04/09/18 08:16 Atorvastatin Calcium (Lipitor) 40 mg DAILY PO 04/06/18 13:00 04/09/18 08:16 Carvedilol (Coreg) 25 mg BID PO 04/06/18 12:30 04/09/18 08:16 Diltiazem HCl (Cardizem Cd) 240 mg DAILY PO 04/06/18 13:00 04/09/18 09:36 Finasteride (Proscar) 5 mg DAILY PO 04/07/18 09:00 04/09/18 08:16 Sirolimus (Rapamune) 2 mg DAILY PO 04/06/18 13:00 04/09/18 09:36 Tacrolimus (Prograf) 0.5 mg Q12H PO 04/06/18 13:00 04/09/18 11:53 Temazepam (Restoril) 15 mg HS PRN PO INSOMNIA 04/06/18 21:00 04/07/18 21:58 Guaifenesin/ Codeine Phosphate (Robitussin Ac 200-20 Mg/10 ml Liq) 10 ml Q4H PRN PO cough 04/06/18 13:00 04/08/18 22:57 Guaifenesin (Mucinex Er) 600 mg BID PO 04/06/18 21:00 04/09/18 08:16 Loperamide HCl (Imodium) 2 mg Q6H PRN PO diarrhea 04/06/18 18:00 04/07/18 21:23 Benzonatate (Tessalon) 200 mg TID PRN PO breakthrough cough 04/07/18 13:45 04/09/18 08:15 Levofloxacin (Levaquin) 500 mg DAILY PO 04/07/18 21:00 04/09/18 08:16 Lactobacillus Acidophilus (Lactinex) 1 tab Q12HR PO 04/07/18 21:15 04/09/18 08:16 Hydroxyzine HCl (Atarax) 50 mg Q6H PRN PO itching 04/09/18 12:00 Albuterol/ Ipratropium (Duoneb Neb) 1 ampule Q6HR WHILE AWAKE NEB NEB 04/09/18 20:00 Objective: Vital Signs Date Time Temp Pulse Resp B/P (MAP) Pulse Ox O2 Delivery O2 Flow Rate FiO2 04/09/18 14:22 82 04/09/18 12:00 76 04/09/18 11:48 97.8 72 20 144/73 (96) 96 04/09/18 09:21 71 04/09/18 08:00 73 04/09/18 07:41 98 21 04/09/18 07:15 98.0 73 18 143/78 (99) 96 04/09/18 04:15 98.0 70 16 142/67 (92) 97 04/09/18 04:03 62 04/09/18 00:18 99.2 73 18 146/68 (94) 97 04/09/18 00:06 71 04/08/18 20:01 89 04/08/18 19:40 97 Nasal Cannula 21 04/08/18 19:16 99.2 70 18 122/62 (82) 96 Laboratory Tests Test 04/08/18 04:59 04/09/18 04:20 White Blood Count 4.6 TH/MM3 4.9 TH/MM3 Red Blood Count 3.31 MIL/MM3 3.27 MIL/MM3 Hemoglobin 10.0 GM/DL 9.8 GM/DL Hematocrit 29.1 % 28.6 % Mean Corpuscular Volume 87.9 FL 87.4 FL Mean Corpuscular Hemoglobin 30.2 PG 30.0 PG Mean Corpuscular Hemoglobin Concent 34.3 % 34.3 % Red Cell Distribution Width 13.9 % 13.8 % Platelet Count 119 TH/MM3 129 TH/MM3 Mean Platelet Volume 7.1 FL 7.2 FL Neutrophils (%) (Auto) 46.0 % 38.0 % Lymphocytes (%) (Auto) 36.6 % 45.7 % Monocytes (%) (Auto) 14.3 % 13.6 % Eosinophils (%) (Auto) 2.6 % 2.3 % Basophils (%) (Auto) 0.5 % 0.4 % Neutrophils # (Auto) 2.1 TH/MM3 1.9 TH/MM3 Lymphocytes # (Auto) 1.7 TH/MM3 2.3 TH/MM3 Monocytes # (Auto) 0.7 TH/MM3 0.7 TH/MM3 Eosinophils # (Auto) 0.1 TH/MM3 0.1 TH/MM3 Basophils # (Auto) 0.0 TH/MM3 0.0 TH/MM3 CBC Comment DIFF FINAL DIFF FINAL Differential Comment Laboratory Tests Test 04/08/18 04:59 04/09/18 04:20 Blood Urea Nitrogen 31 MG/DL 28 MG/DL Creatinine 1.42 MG/DL 1.47 MG/DL Random Glucose 182 MG/DL 164 MG/DL Calcium Level 8.1 MG/DL 8.3 MG/DL Magnesium Level 2.0 MG/DL 2.0 MG/DL Sodium Level 140 MEQ/L 138 MEQ/L Potassium Level 3.4 MEQ/L 3.5 MEQ/L Chloride Level 112 MEQ/L 109 MEQ/L Carbon Dioxide Level 16.8 MEQ/L 17.8 MEQ/L Anion Gap 11 MEQ/L 11 MEQ/L Estimat Glomerular Filtration Rate 50 ML/MIN 48 ML/MIN Microbiology Date/Time Source Procedure Growth Status 04/07/18 14:20 Urine Random Urine Legionella Antigen - Final PRESUMPTIVE NEGATIVE FOR LEGIONELLA P... Complete Imaging: Upper Extremity Ultrasound 04/09/18 1418 Signed Impressions: CONCLUSION: 1. No sonographic evidence for right upper extremity DVT. Chest X-Ray 04/08/18 0600 Signed Impressions: CONCLUSION: 1. New patchy infiltrate in the right lung base. 2. Cardiomegaly with no perihilar edema. CT Angiography 04/05/18 1728 Signed Impressions: CONCLUSION: 1. No pulmonary emboli. 2. Right lower lobe infiltrate. 3. Significant coronary artery atherosclerotic calcifications. PHYSICAL EXAMINATION: GENERAL: No acute distress. HEENT: The head is atraumatic. Extraocular movements grossly intact. Pupils reactive to light. No icterus. Oropharynx: Moist mucosa without lesions. NECK: Supple without adenopathy. LUNGS: Diminished breath sounds throughout. HEART: Regular S1 and S2. No audible murmurs, rubs or gallops. ABDOMEN: Bowel sounds present. Obese, soft, no tenderness appreciated. No mass palpable. EXTREMITIES: Right upper extremity swelling. No palpable cord. No erythema. No clubbing or cyanosis; 3+ edema of the lower extremities. SKIN: No diffuse rash. The patient has tree-bark appearance of the tibias. NEUROLOGIC: No gross focal finding. PSYCHIATRIC: Calm and cooperative. IMPRESSION: 1. Right lower lobe pneumonia. 2. Immunosuppression. The patient is status post bone marrow transplantation for chronic myelomonocytic leukemia. 3. Fever and chills along with elevated white blood cell count in On admission. White blood cell count improved. Fever improved. 4. Chronic kidney disease. 5. Left upper extremity swelling. No evidence of phlebitis or cellulitis. Clinically stable. RECOMMENDATIONS: Continue to treat with Levaquin outpatient oral x 10 days. Follow up with oncology in 1 week. Okay to discharge from infectious disease standpoint. Vin Powell MD Apr 09, 2018 15:23
--- NOTE | 2018-04-09 15:26 | HHI.DS ---
Discharge Summary Admission Date Apr 05, 2018 at 21:23 Discharge Date: Apr 09, 2018 Admitting Diagnosis PNA, SIRS, IMMUNOSUPPRESSED (1) Chronic renal disease ICD Code: N18.9 - Chronic kidney disease, unspecified (2) Thrombocytopenia ICD Code: D69.6 - Thrombocytopenia, unspecified Status: Acute (3) Anemia ICD Code: D64.9 - Anemia, unspecified Status: Acute (4) CMML (chronic myelomonocytic leukemia) ICD Code: C93.10 - Chronic myelomonocytic leukemia not having achieved remission Diagnosis: Principal (5) Pneumonia ICD Code: J18.9 - Pneumonia, unspecified organism Diagnosis: Principal (6) Fever ICD Code: R50.9 - Fever, unspecified Diagnosis: Principal Status: Acute Procedures None Brief History - From Admission 68-year-old male with a past medical history significant for CML status post bone marrow transplant on 10/23/17, now on immunosuppression, presents to the emergency department with a 2 day history of fever. Patient was seen 2 days ago and [place] for a fever of 102, given 1 dose of cefepime and advised to stay. The patient reports he felt better so he left and followed up with his oncologist yesterday who prescribed Flagyl as the patient had explosive diarrhea yesterday. He has not had any further diarrhea. He endorses shortness of breath and continued fever. He has a productive cough that started yesterday. His fever at home was 102.7. He denies any chest pain. No heart palpitations. No abdominal pain. No nausea/vomiting. No lateralizing signs/symptoms. CBC/BMP: 04/09/18 0420 04/09/18 0420 Significant Findings Laboratory Tests Test 04/07/18 04:00 04/07/18 14:20 04/07/18 22:40 04/08/18 04:59 Red Blood Count 3.46 MIL/MM3 (4.50-5.90) 3.31 MIL/MM3 (4.50-5.90) Hemoglobin 10.4 GM/DL (13.0-17.0) 10.0 GM/DL (13.0-17.0) Hematocrit 30.4 % (39.0-51.0) 29.1 % (39.0-51.0) Platelet Count 125 TH/MM3 (150-450) 119 TH/MM3 (150-450) Blood Urea Nitrogen 27 MG/DL (7-18) 31 MG/DL (7-18) Creatinine 1.38 MG/DL (0.60-1.30) 1.42 MG/DL (0.60-1.30) Random Glucose 130 MG/DL (74-106) 182 MG/DL (74-106) Calcium Level 8.3 MG/DL (8.5-10.1) 8.1 MG/DL (8.5-10.1) Potassium Level 3.3 MEQ/L (3.5-5.1) 3.4 MEQ/L (3.5-5.1) Chloride Level 111 MEQ/L (98-107) 112 MEQ/L (98-107) Carbon Dioxide Level 17.6 MEQ/L (21.0-32.0) 16.8 MEQ/L (21.0-32.0) Estimat Glomerular Filtration Rate 52 ML/MIN (>89) 50 ML/MIN (>89) Urine Turbidity CLOUDY (CLEAR) HAZY (CLEAR) Urine Protein 100 mg/dL (NEG-TRACE) 100 mg/dL (NEG-TRACE) Urine Occult Blood MOD (NEG) MOD (NEG) Urine Bacteria OCC /hpf (NONE) Urine Mucus FEW /lpf (OCC) FEW /lpf (OCC) Urine Ketones TRACE mg/dL (NEG) Monocytes (%) (Auto) 14.3 % (0.0-8.0) Test 04/09/18 04:20 Red Blood Count 3.27 MIL/MM3 (4.50-5.90) Hemoglobin 9.8 GM/DL (13.0-17.0) Hematocrit 28.6 % (39.0-51.0) Platelet Count 129 TH/MM3 (150-450) Lymphocytes (%) (Auto) 45.7 % (9.0-44.0) Monocytes (%) (Auto) 13.6 % (0.0-8.0) Blood Urea Nitrogen 28 MG/DL (7-18) Creatinine 1.47 MG/DL (0.60-1.30) Random Glucose 164 MG/DL (74-106) Calcium Level 8.3 MG/DL (8.5-10.1) Chloride Level 109 MEQ/L (98-107) Carbon Dioxide Level 17.8 MEQ/L (21.0-32.0) Estimat Glomerular Filtration Rate 48 ML/MIN (>89) Imaging Last Impressions Upper Extremity Ultrasound 04/09/18 1418 Signed Impressions: CONCLUSION: 1. No sonographic evidence for right upper extremity DVT. Chest X-Ray 04/08/18 0600 Signed Impressions: CONCLUSION: 1. New patchy infiltrate in the right lung base. 2. Cardiomegaly with no perihilar edema. CT Angiography 04/05/18 1728 Signed Impressions: CONCLUSION: 1. No pulmonary emboli. 2. Right lower lobe infiltrate. 3. Significant coronary artery atherosclerotic calcifications. PE at Discharge GENERAL: NAD. SKIN: No rashes, ecchymoses or lesions. Cool and dry. HEAD: Atraumatic. Normocephalic. No temporal or scalp tenderness. EYES: Pupils equal round and reactive. Extraocular motions intact. No scleral icterus. No injection or drainage. ENT: Nose without bleeding, purulent drainage or septal hematoma. Throat without erythema, tonsillar hypertrophy or exudate. Uvula midline. Airway patent. NECK: Trachea midline. No JVD or lymphadenopathy. Supple, nontender, no meningeal signs. CARDIOVASCULAR: Regular rate and rhythm without murmurs, gallops, or rubs. RESPIRATORY: Coarse breath sounds, wheezing. GASTROINTESTINAL: Abdomen soft, non-tender, nondistended. No hepato-splenomegaly , or palpable masses. No guarding. MUSCULOSKELETAL: Extremities with 1-2+ edema. Right upper extremity with edema as well. NEUROLOGICAL: Awake and alert. Cranial nerves II through XII intact. Motor and sensory grossly within normal limits. Normal speech. Hospital Course Pneumonia in immunocompromised patient/ Fever/ Sepsis CTA significant for right lower lobe infiltrate. The pt also had watery diarrhea. Patient presented with leukocytosis and tachycardia. He received oxygen and nebs as needed. Oncology and ID were consulted. C diff negative. UA negative for infection. Blood cultures with NGTD. He will complete a course of Levaquin per ID along with probiotics. He will continue Robitussin AC and Tessalon Perles as needed. He will also continue Duonebs as needed. He will follow up with oncology as an outpt. 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 Medical oncology was consulted. He was continued on immunosuppression. He will have outpt follow-up. RUE swelling Duplex US negative for DVT. Diabetes mellitus He was placed on sliding-scale insulin. He will resume his home regimen upon discharge. Chronic kidney disease/ Hypokalemia Creatinine improved. Currently at baseline. Potassium was repleted with KCl. Pt Condition on Discharge: Stable Discharge Disposition: Discharge Home Discharge Time: > 30 minutes Discharge Instructions DIET: Follow Instructions for: Heart Healthy Diet Activities you can perform: Weight Bearing as Rafat Follow up Referrals: Oncology/Hematology - 1 Week with Franc Mesa MD PCP Follow-up - 1 Week New Medications: Guaifenesin-Codeine Liq (Guaifenesin AC Liq) 100-10 Mg/5 Ml Syrp 5 ML PO Q4H PRN for COUGH, #1 ML 0 Refills Ipratropium-Albuterol Neb (Duoneb) 0.5-2.5 Mg/3 Ml Neb 1 NEBULE INH Q4HR NEB for Breathing Treatment, #180 NEBULE 0 Refills Nebulizer (Aeroneb Go Nebulizer) 1 Each Each UNIT FACE.MASK DAILY for nebulizer, #1 Benzonatate (Tessalon Perles) 100 Mg Cap 200 MG PO TID PRN for cough, #30 CAP Lactobacillus Acidophilus (Acidophilus/l-Sporogenes) 35 Million Cell-25 Million Cell Tab 1 TAB PO Q12HR for Antibiotics for 10 Days, TAB Levofloxacin (Levaquin) 500 Mg Tablet 500 MG PO DAILY for Infection for 10 Days, #10 TAB Take first dose 04/10 Continued Medications: Acyclovir (Acyclovir) 800 Mg Tab 800 MG PO BID for Mgmt Viral Infection, TAB 0 Refills Albuterol 18 GM Inh (Ventolin Hfa 18 GM Inh) 90 Mcg/Act Aer 1 PUFF INH Q4H PRN for SHORTNESS OF BREATH, #1 INHALER 0 Refills (This prescription has been renewed) Allopurinol (Allopurinol) 300 Mg Tab 300 MG PO DAILY for Gout, #30 TAB 0 Refills Atorvastatin (Atorvastatin) 40 Mg Tab 40 MG PO DAILY for Cholesterol Management, #30 TAB 0 Refills Carvedilol (Carvedilol) 25 Mg Tab 25 MG PO BID, #60 TAB 0 Refills Cholecalciferol (Vitamin D-1000) 1,000 Unit Tab 2000 UNITS PO BID for Nutritional Supplement, #1 BOTTLE 0 Refills Diltiazem CD 24 HR (Cardizem CD 24 HR) 240 Mg Caper 240 MG PO DAILY, #30 CAP 0 Refills Finasteride (Finasteride) 5 Mg Tab 5 MG PO DAILY for bph, #90 TAB 5 Refills Do not crush. Hydrocodone/Acetaminophen (Hydrocodone-Acetamin 10-325 mg) 10 Mg-325 Mg Tablet 10 MG PO Q6HR Insulin Lispro (Humalog) 100 Unit/Ml Cartridge Sirolimus (Sirolimus) 2 Mg Tab 2 MG PO DAILY for Immunosuppression, #30 TAB 0 Refills Tacrolimus (Tacrolimus) 0.5 Mg Cap 0.5 MG PO Q12H for Prevent Transplant Reject, #60 CAP 0 Refills Temazepam (Restoril) 15 Mg Cap 15 MG PO HS PRN for INSOMNIA, #30 CAP 0 Refills Tramadol (Tramadol) 50 Mg Tab 50 MG PO Q4H PRN for PAIN, TAB 0 Refills Odilon Chambers DO Apr 09, 2018 15:26
[2018-04-09] MEDS ORDERED: GUAISYP4 PO (15:31)
[2018-04-09] MEDS ORDERED: NEBU1MIS FACE.MASK (16:54)
[2018-04-09] MEDS ORDERED: VENTAER INH (16:54)
[2018-04-09] MEDS ORDERED: IPRASOL INH (16:54)
[2018-04-09] MEDS ORDERED: RESP: ALBUTEROL 2.5 MG/IPRATROPIUM 0.5 MG NEB (SCH) NEB (20:00)
== END 2018-04-09 17:33 | disposition home or self-care (01) | DRG 871 ==
LOC: NEPC 16:23 → NEDA 21:23 → HCIS 23:41 → HCIN 04-06 18:42
PROVIDERS: ADMIT Hospitalist; ATTEND Hospitalist
DX: A41.9 Sepsis, unspecified organism (principal); J18.9 Pneumonia, unspecified organism; D89.813 Graft-versus-host disease, unspecified; E11.22 Type 2 diabetes mellitus with diabetic chronic kidney disease; J44.0 Chronic obstructive pulmonary disease with (acute) lower respiratory infection; D69.6 Thrombocytopenia, unspecified; C93.11 Chronic myelomonocytic leukemia, in remission; Z94.81 Bone marrow transplant status; E87.1 Hypo-osmolality and hyponatremia; Z68.41 Body mass index [BMI] 40.0-44.9, adult; I48.91 Unspecified atrial fibrillation; E11.65 Type 2 diabetes mellitus with hyperglycemia; N40.0 Benign prostatic hyperplasia without lower urinary tract symptoms; N18.9 Chronic kidney disease, unspecified; I12.9 Hypertensive chronic kidney disease with stage 1 through stage 4 chronic kidney disease, or unspecified chronic kidney disease; I25.10 Atherosclerotic heart disease of native coronary artery without angina pectoris; R19.7 Diarrhea, unspecified; E66.9 Obesity, unspecified; H91.90 Unspecified hearing loss, unspecified ear; K21.9 Gastro-esophageal reflux disease without esophagitis; D64.9 Anemia, unspecified; E78.00 Pure hypercholesterolemia, unspecified; G47.30 Sleep apnea, unspecified; Z96.643 Presence of artificial hip joint, bilateral; R00.0 Tachycardia, unspecified; M19.90 Unspecified osteoarthritis, unspecified site; E87.6 Hypokalemia; M79.89 Other specified soft tissue disorders; R49.0 Dysphonia; R60.0 Localized edema; Z85.828 Personal history of other malignant neoplasm of skin; Z79.4 Long term (current) use of insulin; Z95.5 Presence of coronary angioplasty implant and graft
CPT/HCPCS: 71045; 71275; 80048; 80053; 80195; 80197; 81001; 82948; 83605; 83735; 83880; 84484; 85025; 85027; 85610; 85730; 87040; 87070; 87205; 87449; 87493; 87506; 87804; 93005; 93971; 94150; 94640; 94664; J0692; J1642; J1650; J1815; J2997; J3370; J7030; J7040; J7050; J7520; Q9967